=== PATIENT | female | born 1970 | race African-American/Black ===

== ENCOUNTER 2017-02-20 10:17 | Emergency (ER) | payer OTHER ==
[2017-02-20 10:26] VITALS: BMI 33.0
--- NOTE | 2017-02-20 11:08 | PDOC ---
History of Present Illness <Melissa Abbott - Last Filed: 02/20/17 16:57> - General History Source: Patient Exam Limitations: No Limitations - History of Present Illness Initial Comments: The patient is a 46 year old female, with a significant past medical history of DM, HTN, Anemia, Uterine fibroids who presents to the emergency department with L arm pain for the past 3 days. Patient reports pain is intermittent, crampy in nature, 10/10 in severity radiating from L shoulder to her fingertips. Patient states arm pain is associated with coldness to her fingertips. Patient took Aleve for the pain with minimal relief and presents to the ED for further evaluation. Patient denies any prior episodes. Patient denies any trauma , injury or heavy lifting. Patient denies SOB, chest pain or neck pain, headache or dizziness. Patient denies fever, chills, abdominal pain, nausea, vomit, diarrhea or constipation. Patient denies dysuria, frequency, urgency or hematuria. Patient denies sick contacts or recent travel. Allergies: codeine Past surgical history: Cholecystectomy, Bilateral toes amputation Social history: Former smoker PCP: at [facility] <Toney Coello - Last Filed: 02/20/17 17:59> - General Chief Complaint: Pain Stated Complaint: PCP SENT/LT ARM PAIN Time Seen by Provider: 02/20/17 11:00 Past History <Melissa Abbott - Last Filed: 02/20/17 16:57> - Past Medical History Anemia: Yes COPD: No CHF: Yes Diabetes: Yes (type 1) HTN: Yes Hypercholesterolemia: Yes - Surgical History Cholecystectomy: Yes - Immunization History Immunization Up to Date: Yes - Suicide/Smoking/Psychosocial Hx Smoking History: Former smoker Have you smoked in the past 12 months: No Number of Cigarettes Smoked Daily: 10 If you are a former smoker, when did you quit?: 4 YRS Information on smoking cessation initiated: No Hx Alcohol Use: No Drug/Substance Use Hx: No Substance Use Type: None Hx Substance Use Treatment: No <Toney Coello - Last Filed: 02/20/17 17:59> - Past Medical History Allergies/Adverse Reactions: Allergies Allergy/AdvReac Type Severity Reaction Status Date / Time codeine Allergy Intermediate Nausea Verified 02/20/17 10:18 Home Medications: Ambulatory Orders Insulin Sliding Scale [Novolog Vial Sliding Scale -] 0 units SQ TIDAC 04/16/15 Lisinopril [Zestril] 20 mg PO BID 06/11/14 Amlodipine Besylate [Norvasc -] 10 mg PO DAILY #30 tablet 06/19/14 Hydrochlorothiazide [Hctz -] 25 mg PO BID 08/27/15 Insulin Detemir [Levemir Flextouch] 60 unit SQ BID 08/27/15 Oxycodone HCl/Acetaminophen [Percocet 5-325 mg Tablet -] 1 combo PO Q6H PRN #14 tablet MDD 4 02/20/17 Review of Systems - Review of Systems Able to Perform ROS?: Yes Comments:: 02/20/17 17:04 CONSTITUTIONAL: No reported: Fever, Chills, Diaphoresis, Generalized Weakness, Malaise, Loss of Appetite HEENT: No reported: Rhinorrhea, Nasal Congestion, Throat Pain, Throat Swelling, Difficulty Swallowing, Mouth Swelling, Ear Pain, Eye Pain, Visual Changes CARDIOVASCULAR: No reported: Chest Pain, Syncope, Palpitations, Irregular Heart Rate, Lightheadedness, Peripheral Edema RESPIRATORY: No reported: Cough, Shortness of Breath, SOB with Exertion, Orthopnea, Wheezing , Stridor, Hemoptysis GASTROINTESTINAL: No reported: Abdominal pain, Abdominal Distension, Nausea, Vomiting, Diarrhea, Constipation, Melena, Hematochezia GENITOURINARY: No reported: Dysuria, Frequency, Urgency, Hesitancy, Flank Pain, Genital Pain MUSCULOSKELETAL: +L arm pain. No reported: Myalgia, Arthralgia, Joint Swelling, Back pain, Neck Pain SKIN: No reported: Rash, Itching, Pallor HEMATOLOGIC/IMMUNOLOGIC: No reported: Easy Bleeding, Easy Bruising, Lymphadenopathy, Frequent infections ENDOCRINE: No reported: Unexplained Weight Gain, Unexplained Weight Loss, Heat Intolerance , Cold Intolerance NEUROLOGIC: No reported: Headache, Focal Weakness, Paresthesias, Vertigo, Lightheadedness, Unsteady Gait, Seizure, Mental Status Changes, Incontinence PSYCHIATRIC: No reported: Anxiety, Depression <Mode,Toney - Last Filed: 02/20/17 17:59> *Physical Exam - Vital Signs Last Vital Signs Temp Pulse Resp BP Pulse Ox 98.1 F 84 18 155/81 98 02/20/17 13:32 02/20/17 13:32 02/20/17 13:32 02/20/17 13:32 02/20/17 13:32 <Melissa Abbott - Last Filed: 02/20/17 16:57> - Vital Signs Last Vital Signs Temp Pulse Resp BP Pulse Ox 98.8 F 92 H 18 165/91 100 02/20/17 10:21 02/20/17 10:21 02/20/17 10:21 02/20/17 10:21 02/20/17 10:21 - Physical Exam Comments: 02/20/17 17:04 GENERAL: The patient is awake, alert, and fully oriented, Nontoxic - in no acute distress. HEAD: Normocephalic, atraumatic. EYES: extraocular movements intact, sclera anicteric, conjunctiva clear. ENT: Normal voice, Moist mucous membranes. NECK: Normal range of motion, No JVD LUNGS: Breath sounds equal, clear to auscultation bilaterally. No wheezes, no rhonchi, no rales. HEART: Regular rate and rhythm, normal S1 and S2 without murmur, rub or gallop. ABDOMEN: Soft, nontender, normoactive bowel sounds. No guarding, no rebound. No masses. No CVA tenderness EXTREMITIES: +Tenderness to mid forearm with no erythema or edema. Normal range of motion, no edema. No clubbing or cyanosis. No cords, erythema, or tenderness.. +Slighter cooler arm L greater than R arm. pulses symmetric b/l NEUROLOGICAL: No facial asymmetry, Normal speech, normal gait. PSYCH: Normal mood, normal affect. SKIN: Warm, Dry, normal turgor. <Toney Coello - Last Filed: 02/20/17 17:59> Heart Score/ECG Review - ECG Impressions Comment:: 02/20/17 17:05 Twelve-lead EKG was performed and reviewed by me. There is normal sinus rhythm with a normal rate. rate of 92 q waves in septal leads <Toney Coello - Last Filed: 02/20/17 17:59> ED Treatment Course - LABORATORY CBC & Chemistry Diagram: 02/20/17 11:54 02/20/17 11:54 - ADDITIONAL ORDERS Additional order review: Laboratory Results 02/20/17 11:54 Sodium 133 L Potassium 4.6 Chloride 104 Carbon Dioxide 21 D Anion Gap 8 BUN 32 H D Creatinine 2.2 H D Creat Clearance w eGFR 24.03 Random Glucose 367 H* D Calcium 7.9 L Total Bilirubin 0.3 D AST 14 L D ALT 20 D Alkaline Phosphatase 129 H D Creatine Kinase 175 Creatine Kinase Index 2.8 CK-MB (CK-2) 5.017 H Troponin I 0.03 Total Protein 6.6 Albumin 2.5 L 02/20/17 11:54 RBC 4.23 MCV 64.0 L MCHC 28.5 L RDW 25.1 H MPV 8.4 D Neutrophils % No Result Required. Lymphocytes % No Result Required. - Medications Given in the ED: ED Medications Discontinued Medications Generic Name Dose Route Start Last Admin Trade Name Freq PRN Reason Stop Dose Admin Oxycodone/Acetaminophen 2 combo 02/20/17 11:43 02/20/17 11:49 Percocet 5/325 - PO 02/20/17 11:44 2 combo ONCE ONE Administration <Melissa Abbott - Last Filed: 02/20/17 16:57> - LABORATORY CBC & Chemistry Diagram: 02/20/17 11:54 02/20/17 11:54 <Toney Coello - Last Filed: 02/20/17 17:59> Medical Decision Making - Medical Decision Making 02/20/17 15:15 Mandi paged via office number. Awaiting call back. 02/20/17 15:37 Vascular dirt contractor paged-- Bhumi/Dina/Minor Arroyo to call back. 02/20/17 15:56 Dr. Arroyo returned the page and the patient;s case was discussed. 02/20/17 16:57 Ge paged via phone answering service. Awaiting call back. <Melissa Abbott - Last Filed: 02/20/17 16:57> - Medical Decision Making 02/20/17 11:32 46y F presenting with R forewarm pain and intermittent cramping and sensation of coolenss in her R hand. no injury, trauma, no sob, cp, neck pain or bcak pain. on exam RUE is slightly cooler than L. pulses symmetric, no edema?erythema. will ck basic labs to r/o metabolic dernagement US to confirm arterial flow 02/20/17 15:06 US noted for abnormal distal flow within radial and ulnar artieries. uncertain etiology. cta was recommended but the pts cr was elevated to 2.2. unclear etiology - will consult with vascular (dr. hawkins - woh she has seen in ). 02/20/17 15:[address] vascular dirt contractor as dr. schofield is on vacation. 02/20/17 15:59 dr. carolina was dustin freeman (surgical PA ) here evaluating epatient awaiting dr. carolina to call back for further direction 02/20/17 17:20 hanh carolina - ?vasculitis vs neuro vs vspasms as pt is feeling improved pulses are palapble no neuro complaints pulses symemtric warm bilaterally cap refill <2sec b/l will dc with outpatient fu tomorrow in the vascular lcinic pt agrees wit the plan and will return if symptpoms return o rare worse. I discussed the physical exam findings, ancillary test results and final diagnoses with the patient. I answered all of the patient's questions. The patient was satisfied with the care received and felt comfortable with the discharge plan and treatment plan. The patient will call their primary care physician within 24 hours to arrange follow-up and will return to the Emergency Department with any new, persistent or worsening symptoms. 02/20/17 17:58 <Toney Coello - Last Filed: 02/20/17 17:59> *DC/Admit/Observation/Transfer <Melissa Abbott - Last Filed: 02/20/17 16:57> - Discharge Dispostion Admit: No <Toney Coello - Last Filed: 02/20/17 17:59> Diagnosis at time of Disposition: Arm pain, left - Discharge Dispostion Disposition: HOME Condition at time of disposition: Improved - Prescriptions Prescriptions: Oxycodone HCl/Acetaminophen [Percocet 5-325 mg Tablet -] 1 combo PO Q6H PRN #14 tablet MDD 4 PRN Reason: Pain - Referrals Referrals: Eric Carolina MD [Staff Physician] - - Patient Instructions Printed Discharge Instructions: DI for Arm Pain Additional Instructions: Please see dr. Carolina in the vascular clinic at 11:30 tomorrow on . Your US revealed slightly decreased flow in your arteries in your arm - the cause is unclear at this time, but as your are feeling better please see dr. ge chowdary. Return to the emergency department immediately with ANY new, persistent or worsening symptoms including any numbness/tingling, persistent pain, or other concerns. You MUST call and follow up with your doctor tomorrow for further evaluation of your symptoms. Results were discussed with you. Please make sure your doctor reviews the results of your emergency evaluation. Print Language: MALAY
[2017-02-20 12:18] LABS: BASO # 0.1 # (0.1-1); EOS # 0.3 # (0-4.5); LYMPH # 4.3 (8-40); MCHC 28.5 g/dl (32.0-36.0); MEAN PLT VOLUME 8.4 fl (7.5-11.1); MONO # 0.4 # (3.8-10.2); PLATELET COUNT 610 K/MM3 (134-434); RDW 25.1 % (11.6-15.6); WHITE BLOOD COUNT 9.1 K/mm3 (4.0-10.0)
[2017-02-20 12:28] LABS: MCH 18.2 pg (25.7-33.7)
[2017-02-20 12:56] LABS: ALBUMIN 2.5 g/dl (3.4-5.0); ANION GAP 8 (8-16); BILIRUBIN,TOTAL 0.3 mg/dL (0.2-1.0); CALCIUM 7.9 mg/dL (8.5-10.1); CO2 21 mmol/L (21-32); CREATININE 2.2 mg/dL (0.55-1.02); SGOT/AST 14 U/L (15-37); SGPT/ALT 20 U/L (12-78); TOT PROT 6.6 g/dl (6.4-8.2)
[2017-02-20 12:59] LABS: ALK PHOS 129 U/L (45-117); CPK 175 IU/L (26-192); TROPONIN I 0.03 ng/ml (0.00-0.05)
[2017-02-20 13:10] LABS: GLUCOSE,RANDOM 367 mg/dL (74-106)
[2017-02-20 13:35] LABS: ANISOCYTOSIS 2+; HYPOCHROMIA 2+; METAMYELOCYTE 0 % (0-2); MICROCYTOSIS 3+; MYELOCYTE 0 % (0-2); PLATELET ESTIMATE INCREASED; POLYCHROMASIA 1+; REACTIVE LYMPHOCYTES 0 % (0-80); TARGET CELLS 2+
[2017-02-20 13:50] LABS: TOTAL CELLS COUNTED 100
--- NOTE | 2017-02-20 16:11 | CONSULT ---
- Consultation REQUESTING PROVIDER: Eric Willard covering for Daniel Raymond - Vascular Surgery CONSULT REQUEST: We have been asked to surgically evaluate this patient for cool left hand and abnormal finding on duplex HPI: Called to christian 46 yo female sent in by her PCP for further evaluation of her left hand coolness/pain (acute onset). States it started this past Sunday. Gets a "crampy" feeling in her fingers. Hands spasm. Pain reproducible with exertion. No pain while at rest. She is a former smoker (quit 4 years ago). Poorly controlled diabetes and renal insufficiency --> never seen by Endocrinology or Nephrology. Patient states her PCP manages both problems. While in ER patient had an arterial duplex study which identified abnormal flow through radial and ulnar arteries. No occlusion or hemodynamically significant stenosis. Denies trauma, pain with movement, rest pain, afib or palpitations. Smoking History: Former smoker (quit 4 years ago) Hx Alcohol Use: No Substance Use Type: None PMHx: Hypercholesterolemia, Obese, Renal insufficiency, Type 1 Diabetes, CHF, Anemia PSHx: Cholecystectomy Home Meds Insulin Sliding Scale [Novolog Vial Sliding Scale -] 0 units SQ TIDAC 06/11/14 Lisinopril [Zestril] 20 mg PO BID 06/11/14 Amlodipine Besylate [Norvasc -] 10 mg PO DAILY #30 tablet 06/19/14 Hydrochlorothiazide [Hctz -] 25 mg PO BID 08/27/15 Insulin Detemir [Levemir Flextouch] 60 unit SQ BID 08/27/15 Allergies: Codeine (nausea) ROS: Reviewed and considered negative except for what's contained in the HPI. PE: GENERAL: Awake, alert, and fully oriented, in no acute distress. HEAD: NC. AT EYES: PERRL, sclera anicteric, conjunctiva clear. NECK: Normal ROM, supple. No cervical tenderness. HEART: RRR MUSCULOSKELETAL: Normal ROM at all joints. No bony deformities or tenderness. UE: RUE unremarkable. LUE: palpable radial. warm, well-perfused. No cyanosis. Cap refill <2 seconds. No peripheral edema. PSYCH: Cooperative. Good eye contact. Appropriate mood and affect. SKIN: Warm, dry, normal turgor, no rashes or lesions noted Last Vital Signs Temp Pulse Resp BP Pulse Ox 98.1 F 84 18 155/81 98 12/26/17 13:32 02/20/17 13:32 02/20/17 13:32 02/20/17 13:32 02/20/17 13:32 CBC, BMP 02/20/17 11:54 02/20/17 11:54 Problem List - Problems (1) Type 1 diabetes Assessment/Plan: Poorly managed diabetes as evidenced by her 367 blood sugar Recommend she get a Endocrinology Consult A1C Warm compress to left hand every 20 mins for 1 hour then PRN Patient has palpable pulses and no occlusion/stenosis on art duplex. Because her Cr is elevated unable to do CTA. Conservative management Pain management Above discussed with Dr. Willard (covering for Mandi) and agrees. Code(s): E10.9 - TYPE 1 DIABETES MELLITUS WITHOUT COMPLICATIONS (2) Renal insufficiency Assessment/Plan: BUN/Cr 32/2.2 Recommend Nephrology Consult Code(s): N28.9 - DISORDER OF KIDNEY AND URETER, UNSPECIFIED (3) Anemia Code(s): D64.9 - ANEMIA, UNSPECIFIED Qualifiers: Anemia type: unspecified anemia type Visit type - Case Type Case Type: ED Admission - Emergency Emergency Visit: Yes Care time: The patient presented to the Emergency Department on the above date and was hospitalized for further evaluation of their emergent condition. - New patient This patient is new to me today: Yes Date on this admission: 02/20/17
[2017-02-20 18:12] VITALS: BP 145/80; PULSE 81; TEMP 98
--- NOTE | 2017-02-21 13:25 | EKG ---
Test Reason : Blood Pressure : / mmHG Vent. Rate : 092 BPM Atrial Rate : 092 BPM P-R Int : 180 ms QRS Dur : 080 ms QT Int : 376 ms P-R-T Axes : 042 -15 032 degrees QTc Int : 464 ms NORMAL SINUS RHYTHM POSSIBLE LEFT ATRIAL ENLARGEMENT SEPTAL INFARCT (CITED ON OR BEFORE 23-JUL-2010) ABNORMAL ECG WHEN COMPARED WITH ECG OF 27-AUG-2015 13:50, NO SIGNIFICANT CHANGE WAS FOUND Confirmed by CARLOS ALBERTO LEE MD ([id number]) on 02/21/2017 1:25:21 PM Referred By: Confirmed By:CARLOS ALBERTO LEE MD
== END 2017-02-20 18:12 | disposition home or self-care (01) ==
LOC: JER 10:17
DX: M79.602 Pain in left arm (principal); I10 Essential (primary) hypertension; E10.9 Type 1 diabetes mellitus without complications; Z79.4 Long term (current) use of insulin; D50.9 Iron deficiency anemia, unspecified; D25.9 Leiomyoma of uterus, unspecified; E78.00 Pure hypercholesterolemia, unspecified
CPT/HCPCS: 36415; 80053; 82550; 82553; 84484; 85025; 93005; 93010; 93931; 99283-25

== ENCOUNTER 2017-11-01 00:46 | Inpatient (IN) | payer OTHER ==
--- NOTE | 2017-11-01 01:05 | PDOC ---
Attending Attestation - HPI HPI: 11/01/17 01:08 The patient is a 47 year old female presenting with her partner, with a significant past medical history of DM, HTN, anemia (multiple transfusion in the past, starting in 2010), obesity, fibroids and bilateral ovarian cysts, who presents to the ED complaining of shortness of breath, palpitations, chest pain , lightheadedness, heavy vaginal bleeding and low blood count. She notes that she has been bleeding heavy for the past 3 weeks, with the past 3 days being the worse, bleeding through 4 overnight pads a day. She states that her menstrual periods are usually heavy but not this heavy. She was last seen in the ED 08/25/2017 and stayed overnight for a transfusion. She states that she has not followed up with a [facility] [employer] specialist for a long time. The patient denies headache, dizziness. Denies fever, chills, nausea, vomiting, diarrhea or constipation. Allergies: codeine Past surgical history: Cholecystectomy, Bilateral toes amputation Social history: Former smoker - Physicial Exam PE: 11/01/17 01:08 Constitutional: Awake, alert, oriented. No acute distress. Head: Normocephalic. Atraumatic Eyes: PERRL. EOMI. (+) Conjunctivae are pale. ENT: (+) Mucous membranes are dry. Posterior pharynx without exudates or erythema. Uvula midline. Neck: Supple. Full ROM. No lymphadenopathy. Cardiovascular: Regular rate. Regular rhythm. S1, S2 regular. Distal pulses are 2+ and symmetric. Pulmonary/Chest: No evidence of respiratory distress. Clear to auscultation bilaterally No wheezing, rales or rhonchi. Abdominal: (+) Mild suprapubic tenderness. Soft and non-distended. No rebound, guarding or rigidity. No organomegaly. No palpable masses. Good bowel sounds. Back: No CVA tenderness. Musculoskeletal: No edema. No cyanosis. No clubbing. Full range of motion in all extremities. Nocalf tenderness. Radial/pedal pulses are intact and 2+ bilaterally Skin: Skin is warm and dry. No petechiae. No purpura. Neurological: Alert and oriented to person, place, and time. Cranial nerves II -XII are grossly intact. Normal speech. Strength is grossly symmetric. No sensory deficits. Psychiatric: Good eye contact. Normal interaction, affect and behavior. <Rashaad Alvarado - Last Filed: 11/01/17 01:39> - Resident Resident Name: Kati Campbell - ED Attending Attestation I have performed the following: I have examined & evaluated the patient, The case was reviewed & discussed with the resident, I agree w/resident's findings & plan, Exceptions are as noted - Medical Decision Making 11/01/17 01:05 I, Dr. Mary Marcus, DO, attest that this document has been prepared under my direction and personally reviewed by me in its entirety. I further attest, that it accurately reflects all work, treatment, procedures and medical decision -making performed by me. 11/01/17 01:49 a/p: 47yo female with 3 weeks of vaginal bleeding, worse over the last 3 days -bleeding through 4 overnight pads in 1 hour, passing large clots -outpt hgb was 4 -sent by PMD for transfusion -pale conjunctiva, sob when ambulating, lightheaded -signs/symptoms of anemia -will obtain pelvic ultrasound , hx of fibroids and ovarian cysts -will send labs, type and screen -will most likely need to stay in the hospital for a blood transfusion and hiv nurse evaluation <Mary Marcus - Last Filed: 11/01/17 01:52>
[2017-11-01 01:24] VITALS: BMI 36.9
[2017-11-01] MEDS ORDERED: SODIUM CHLORIDE 1,000 ML IV STA (01:26)
--- NOTE | 2017-11-01 02:00 | PDOC ---
History of Present Illness - General Chief Complaint: Shortness of Breath Stated Complaint: SOB/WEAKNESS Time Seen by Provider: 11/01/17 00:57 History Source: Patient Exam Limitations: No Limitations - History of Present Illness Initial Comments: 11/01/17 01:55 Pt is a 47yo f with PMH of uterine fibriods, anemia, DM, HTN, HLD, CHF presenting to ED because her hemoglobin was found to be 4.6 at PCP office. Pt said she has been having "very heavy periods" for 3 weeks. She was here in July for similar complaints and stayed overnight for transfusion. She has not seen an Biology Internship yet. Pt was prescribed Progestin from PCP but has not been able to scrap picker the medication. She uses 4 overnight pads/hour. She admits to shortness of breath, lightheadedness, cramps and cough. Denies chest pain, abdominal pain , n/v/d, headache, urinary symptoms, numbness/tingling. She has a referral to a medical imaging technician from her PCP. Pt states she took her insulin this morning, has not taken evening dose. PCP: Surinder PMH: see hpi PSH: c/section, toe amputation 2010 Meds: novolog, levemir, FeSO4, amlodipine Allergies: codeine Social: denies Past History - Past Medical History Allergies/Adverse Reactions: Allergies Allergy/AdvReac Type Severity Reaction Status Date / Time codeine Allergy Intermediate Nausea Verified 11/01/17 01:24 Home Medications: Ambulatory Orders Insulin Sliding Scale [Novolog Vial Sliding Scale -] 10 units SQ BIDAC 06/11/14 Lisinopril [Zestril] 20 mg PO BID 06/11/14 Amlodipine Besylate [Norvasc -] 10 mg PO DAILY #30 tablet 06/19/14 Hydrochlorothiazide [Hctz -] 25 mg PO BID 08/27/15 Docusate Sodium [Colace] 100 mg PO BID PRN #28 capsule 08/26/17 Ferrous Sulfate 325 mg PO DAILY #30 tablet 08/26/17 Amlodipine Besylate [Norvasc -] 10 mg PO DAILY 11/01/17 Atorvastatin Ca [Lipitor] 40 mg PO HS 11/01/17 Cholecalciferol (Vitamin D3) [Dialyvite Vitamin D3 Max] 50,000 unit PO WEEKLY Insulin Detemir [Levemir Flextouch] 52 unit SQ BID 11/01/17 Lisinopril [Zestril] 40 mg PO DAILY 11/01/17 Anemia: Yes (with transfussion) COPD: No CHF: Yes Diabetes: Yes (type 1) HTN: Yes Hypercholesterolemia: Yes - Surgical History Cholecystectomy: Yes - Immunization History Immunization Up to Date: Yes - Suicide/Smoking/Psychosocial Hx Smoking History: Never smoked Have you smoked in the past 12 months: No Number of Cigarettes Smoked Daily: 10 If you are a former smoker, when did you quit?: 4 YRS Information on smoking cessation initiated: No Hx Alcohol Use: No Drug/Substance Use Hx: No Substance Use Type: None Hx Substance Use Treatment: No Review of Systems - Review of Systems Constitutional: Yes: See HPI, Chills, Weakness. No: Fever HEENTM: No: Recent change in vision, Tinnitus, Throat Pain Respiratory: Yes: Cough, Shortness of Breath, SOB with Exertion. No: Hemoptysis Cardiac (ROS): Yes: Lightheadedness, Palpitations. No: Chest Pain, Edema, Syncope ABD/GI: Yes: Abdominal cramping. No: Constipated, Diarrhea, Nausea, Vomiting : No: Burning, Dysuria, Frequency Integumentary: Yes: Pallor. No: Dryness, Erythema Neurological: No: Headache, Numbness, Tingling Hematologic/Lymphatic: Yes: Anemia *Physical Exam - Vital Signs Last Vital Signs Temp Pulse Resp BP Pulse Ox 98.7 F 90 18 134/58 100 11/01/17 01:11 11/01/17 01:11 11/01/17 01:11 11/01/17 01:11/01/17 01:11 - Physical Exam General Appearance: Yes: Appropriately Dressed, Mild Distress, Obese HEENT: positive: EOMI, YELENA, Pharynx Normal, Pale Conjunctivae, Other (pale oral mucosa). negative: Scleral Icterus (R), Scleral Icterus (L), Pharyngeal Erythema Neck: positive: Trachea midline, Supple. negative: Lymphadenopathy (R), Lymphadenopathy (L) Respiratory/Chest: positive: Lungs Clear, Normal Breath Sounds. negative: Crackles, Rales, Rhonchi, Stridor, Wheezing Cardiovascular: positive: Regular Rhythm, Regular Rate, S1, S2. negative: JVD, Murmur, Tachycardia Vascular Pulses: Carotid (R): 2+, Carotid (L): 2+, Dorsalis-Pedis (R): 2+, Doralis-Pedis (L): 2+ Female Pelvic Exam: positive: normal external exam, cervical os closed, vaginal bleeding, other (no adnexal tenderness or masses palpated.). negative: discharge, adnexal tenderness Gastrointestinal/Abdominal: positive: Normal Bowel Sounds, Soft. negative: Distended, Guarding, Rebound, Tenderness Musculoskeletal: negative: CVA Tenderness Integumentary: positive: Normal Color, Dry, Warm, Pale, Other (Feet are dry and warm. Healing stubs). negative: Cold, Clammy Neurologic: positive: plate cleaner II-XII NML intact, Fully Oriented, Alert, Normal Mood/ Affect, Normal Response, Motor Strength 06/30 ED Treatment Course - LABORATORY CBC & Chemistry Diagram: 11/01/17 03:19 11/01/17 03:19 - RADIOLOGY Radiology Studies Ordered: Category Date Time Status CHEST X-RAY PORTABLE* [RAD] Stat Radiology 11/01/17 01:24 Ordered Medical Decision Making - Medical Decision Making 11/01/17 03:05 Pt is a 47yo f with PMH of uterine fibriods, anemia, DM, HTN, HLD, CHF presenting to ED because her hemoglobin was found to be 4.6 at PCP office. Pt is afebrile, not tachycardic, normotensive. -Will order CBC to determine hgb level, t+s. will give ivf. and blood once hgb levels known. other causes of SOB: infectious, lung pathology, PE however low suspicion. most likely cause is anemia. TVUS: enlarged leiomyomatous uterus with 3.1cm submucosal fibroid in the anterior fundus 11/01/17 04:07 E[address] no ST elevations or depressions, no peaked T waves, no prolonged QT. CXR: Hgb: 5.4 will transfuse 2 units and get pt admitted. Will consult Biology Internship to see pt in the morning and discuss options with patient. Glucose elevated at 409. Cr 2.5 (2.3 in July) and all other electrolytes near baseline. No anion gap. Will give 6u levemir. 11/01/17 04:56 Per tech, they did not see an order for xray. Re entered order. Still waiting for urine 11/01/17 05:40 CXR: view is not optimal. However no acute changes noted with prior xray of . 2nd Iv placed. 20G. *DC/Admit/Observation/Transfer Diagnosis at time of Disposition: Hyperglycemia, CKD (chronic kidney disease) Anemia Qualifiers: Anemia type: other cause Other causes of anemia: other cause, not classified Qualified Code(s): D64.89 - Other specified anemias Fibroid (bleeding) (uterine) Qualifiers: Uterine leiomyoma location: submucous Qualified Code(s): D25.0 - Submucous leiomyoma of uterus - Discharge Dispostion Condition at time of disposition: Good Decision to Admit order: Yes - Referrals - Patient Instructions - Post Discharge Activity
[2017-11-01 03:47] LABS: INR 0.96 (0.83-1.09); PROTHROMBIN TIME (PATIENT) 10.9 SEC (9.7-13.0)
[2017-11-01 03:50] LABS: BASO % 1.4 % (0-2.0); EOS % 2.4 % (0-4.5); MCHC 29.9 g/dl (32.0-36.0); MEAN CELL VOLUME 80.3 fl (80-96); MEAN PLT VOLUME 7.1 fl (7.5-11.1); NEUT % 78.2 % (42.8-82.8); PLATELET COUNT 574 K/MM3 (134-434); RBC 2.25 M/mm3 (3.60-5.2); RDW 19.9 % (11.6-15.6); WHITE BLOOD COUNT 13.9 K/mm3 (4.0-10.0)
[2017-11-01 03:55] LABS: HEMOGLOBIN 5.4 GM/dL (10.7-15.3)
[2017-11-01 03:56] LABS: HEMATOCRIT 18.1 % (32.4-45.2)
[2017-11-01 03:58] LABS: ALBUMIN 2.8 g/dl (3.4-5.0); ALK PHOS 98 U/L (45-117); ANION GAP 8 MMOL/L (8-16); BILIRUBIN,TOTAL 0.1 mg/dL (0.2-1.0); BLOOD UREA NITROGEN 26 mg/dL (7-18); CALCIUM 7.9 mg/dL (8.5-10.1); CHLORIDE 102 mmol/L (98-107); CO2 23 mmol/L (21-32); CREATININE 2.5 mg/dL (0.55-1.02); MAGNESIUM 1.9 mg/dL (1.8-2.4); POTASSIUM 4.5 mmol/L (3.5-5.1); SGOT/AST 23 U/L (15-37); SGPT/ALT 31 U/L (12-78); SODIUM 133 mmol/L (136-145); TOT PROT 6.4 g/dl (6.4-8.2)
[2017-11-01 04:26] LABS: GLUCOSE,RANDOM 409 mg/dL (74-106)
[2017-11-01] MEDS ORDERED: INSULIN (LEVEMIR) 100 UNITS/ML UNITS SQ ONE ×4 (04:31→11:15)
--- NOTE | 2017-11-01 05:41 | PN ---
Teaching Attending Note Name of Resident: Marla Hernandez ATTENDING PHYSICIAN STATEMENT I saw and evaluated the patient. Chart, data, imaging reviewed. I reviewed the resident's note and discussed the case with the resident. I agree with the resident's findings and plan as documented. SUBJECTIVE: 47yo woman with anemia, HTN, uncontrolled DM with CKD, PVD, presented to ER because PCP saw hgb of 4.6mg/dl and referred pt to hospital. Patient with very heavy menses, requiring use of many pads. Was seen last July for similar complaint, received blood transfusion. Never f/u with OBGYN. Now c/o shortness of breath with exertion, fatigue. Pt having uncontrolled glucose with a1c last year of 13. OBJECTIVE: Last Vital Signs Temp Pulse Resp BP Pulse Ox 98.7 F 90 18 134/58 100 11/01/17 01:11 11/01/17 01:11 11/01/17 01:11 11/01/17 01:11 11/01/17 01:11 General -nontoxic, nad, obese heent- at, nc neck -supple cv -s1+s2+rrr chest -cta b/l abdomen-obese, nt skin - no rash Abnormal Lab Results 11/01/17 11/01/17 11/01/17 03:19 03:19 03:19 WBC 13.9 H RBC 2.25 L Hgb 5.4 L* Hct 18.1 L D MCH 24.0 L MCHC 29.9 L RDW 19.9 H Plt Count 574 H D MPV 7.1 L Absolute Neuts (auto) 10.9 H Sodium 133 L BUN 26 H Creatinine 2.5 H Random Glucose 409 H* Calcium 7.9 L Total Bilirubin 0.1 L Albumin 2.8 L Crossmatch See Detail ekg reviewed -poor r wave progression, precordial q waves seen transvaginal u/s reviewed. ASSESSMENT AND PLAN: 47yo woman with severe symptomatic anemia from bleeding 2/2 leiomyoma -observation -basic anemia studies- ferritin, iron levels, vit b12, retic count -transfuse 2 units PRBC and recheck cbc - goal hgb - >7mg/dl -obgyn eval in hospital - patient was noncompliant with outpatient f/u previously -bhcg -avoid heparin or antiplatelet agents #Hyperglycemia- normal anion gap -send for ketones in urine and serum -insulin aspart 12 units stat -s/p 1L IV fluid -send a1c level -will need podiatry and ophtho care as an outpatient #Leukocytosis- no signs of infection, might be reactive -CXR to check for infiltrates -UA -hold off abx for now #CKD - does not follow with renal as an outpatient -renal consult for renal medication optimization -restrict IVF -renal U/S -avoid nephrotoxic meds SCDs for dvt ppx
[2017-11-01] MEDS ORDERED: INSULIN (NOVOLOG) ASPART 100 UNITS/ML 10ML VIAL SQ ONE (06:00)
--- NOTE | 2017-11-01 06:14 | HP ---
CHIEF COMPLAINT: anemia PCP: Dr. Cadena HISTORY OF PRESENT ILLNESS: 47 y/o female with PMH DM,HTN, anemia, fibroids presents to the ED with heavy vaginal bleeding associated with SOB/weakness/palpitations. Patient states for the past three weeks her menstrual period has lasted and she has been heavily bleeding, using about 4 pads an hour and has been also passing clots. Patient was sent in from PCP kylee to have a Hgb of 4.6. Of note, patient was here 2 months ago with similar complaints where she received 1 unit of blood. She does not follow up with a crop roller regularly. She endorses dyspnea and lightheadedness. ER course was notable for: (1) Hgb 5.4 - receiving 2 units (2) glucose 409- (3)WBC 13.9- Recent Travel: none PAST MEDICAL HISTORY: see above PAST SURGICAL HISTORY: toe amputations; c section Social History: Smoking: former smoker; quit 15 years ago Alcohol: social drinker; drinks occasionally on weekends Drugs: denies Family History: maternal grandmother and aunt both have ovarian and breast cancer; DM and HTN on both sides Allergies codeine Allergy (Intermediate, Verified 11/01/17 01:24) Nausea bad stomach ache HOME MEDICATIONS: Home Medications Medication Instructions Recorded Insulin Sliding Scale [Novolog 10 units SQ BIDAC 06/11/14 Vial Sliding Scale -] Lisinopril [Zestril] 20 mg PO BID 06/11/14 Amlodipine Besylate [Norvasc -] 10 mg PO DAILY #30 tablet 06/19/14 Hydrochlorothiazide [Hctz -] 25 mg PO BID 08/27/15 Docusate Sodium [Colace] 100 mg PO BID PRN #28 capsule 08/26/17 Ferrous Sulfate 325 mg PO DAILY #30 tablet 08/26/17 Amlodipine Besylate [Norvasc -] 10 mg PO DAILY 11/01/17 Atorvastatin Ca [Lipitor] 40 mg PO HS 11/01/17 Cholecalciferol (Vitamin D3) 50,000 unit PO WEEKLY 11/01/17 [Dialyvite Vitamin D3 Max] Insulin Detemir [Levemir Flextouch] 52 unit SQ BID 11/01/17 Lisinopril [Zestril] 40 mg PO DAILY 11/01/17 REVIEW OF SYSTEMS CONSTITUTIONAL: Present:generalized weakness, Absent: fever, chills, diaphoresis, malaise, loss of appetite, weight change HEENT: Absent: rhinorrhea, nasal congestion, throat pain, throat swelling, difficulty swallowing, mouth swelling, ear pain, eye pain, visual changes CARDIOVASCULAR: Present:palpitations,lightheadedness Absent: chest pain, syncope, palpitations, irregular heart rate, peripheral edema RESPIRATORY: Absent: cough, shortness of breath, dyspnea with exertion, orthopnea, wheezing, stridor, hemoptysis GASTROINTESTINAL: Present: abdominal cramping Absent: abdominal distension, nausea, vomiting, diarrhea, constipation, melena, hematochezia GENITOURINARY: Absent: dysuria, frequency, urgency, hesitancy, hematuria, flank pain, genital pain MUSCULOSKELETAL: Absent: myalgia, arthralgia, joint swelling, back pain, neck pain SKIN: Absent: rash, itching, pallor HEMATOLOGIC/IMMUNOLOGIC: Absent: easy bleeding, easy bruising, lymphadenopathy, frequent infections ENDOCRINE: Absent: unexplained weight gain, unexplained weight loss, heat intolerance, cold intolerance NEUROLOGIC: Absent: headache, focal weakness or paresthesias, dizziness, unsteady gait, seizure, mental status changes, bladder or bowel incontinence PSYCHIATRIC: Absent: anxiety, depression, suicidal or homicidal ideation, hallucinations. PHYSICAL EXAMINATION Vital Signs - 24 hr 11/01/17 01:11 Temperature 98.7 F Pulse Rate 90 Respiratory 18 Rate Blood Pressure 134/58 O2 Sat by Pulse 100 Oximetry (%) GENERAL: Awake, alert, and fully oriented, in no acute distress. NECK: no JVD appreciated. LUNGS: CTA B/L; no rales, rhonchi, wheezing HEART: Regular rate and rhythm, normal S1 and S2 without murmur, rub or gallop. ABDOMEN: Soft, nontender, not distended, normoactive bowel sounds, no guarding, no rebound, no masses. No hepatomegaly or splenomegaly. MUSCULOSKELETAL: Normal range of motion at all joints. No bony deformities or tenderness. No CVA tenderness. EXTREMITIES: warm; well perfused; no clubbing/cyanosis/edema NEUROLOGICAL: Cranial nerves II-XII intact. Normal speech. Normal gait. PSYCHIATRIC: Cooperative. Good eye contact. Appropriate mood and affect. SKIN: Warm, dry, normal turgor, no rashes or lesions noted, normal capillary refill. Laboratory Results - last 24 hr 11/01/17 11/01/1718 03:19 03:19 03:19 WBC 13.9 H RBC 2.25 L Hgb 5.4 L* Hct 18.1 L D MCV 80.3 MCH 24.0 L MCHC 29.9 L RDW 19.9 H Plt Count 574 H D MPV 7.1 L Absolute Neuts (auto) 10.9 H Neutrophils % 78.2 D Lymphocytes % 14.0 D Monocytes % 4.0 Eosinophils % 2.4 Basophils % 1.4 Nucleated RBC % 0 PT with INR INR Sodium 133 L Potassium 4.5 Chloride 102 Carbon Dioxide 23 Anion Gap 8 BUN 26 H Creatinine 2.5 H Creat Clearance w eGFR 20.64 Random Glucose 409 H* Calcium 7.9 L Phosphorus Magnesium 1.9 Total Bilirubin 0.1 L AST 23 ALT 31 Alkaline Phosphatase 98 Troponin I < 0.02 Total Protein 6.4 Albumin 2.8 L Blood Type Antibody Screen Crossmatch 11/01/17 11/01/17 11/01/17 03:19 03:19 03:19 WBC RBC Hgb Hct MCV MCH MCHC RDW Plt Count MPV Absolute Neuts (auto) Neutrophils % Lymphocytes % Monocytes % Eosinophils % Basophils % Nucleated RBC % PT with INR 10.90 INR 0.96 Sodium Potassium Chloride Carbon Dioxide Anion Gap BUN Creatinine Creat Clearance w eGFR Random Glucose Calcium Phosphorus 4.4 Magnesium Total Bilirubin AST ALT Alkaline Phosphatase Troponin I Total Protein Albumin Blood Type O POSITIVE Antibody Screen Negative Crossmatch See Detail ASSESSMENT/PLAN: 47 y/o female with PMH of HTN, DM, anemia, HLD, presents to the ED with heavy vaginal bleeding for the past three weeks along with symptomatic anemia. # Vaginal Bleeding transvaginal U/S showed an enlarged leiomyomatous uterus with a 3.1 cm fibroid in anterior funduds -crop roller consulted -patient receiving 2 units of blood -repeat CBC -iron studies, retic, ferritin pending -monitor hemodynamics # Diabetes patients sugar was 409 on arrival -started ISS -restart patients home dose of levemir 52 BID -serum/urine acetones pending -lipid panel/ A1c ordered #CKD patients Cr increased from 2.3 to 2.5 since last admission -nephro consulted -did not restart patients home dose of lisinopril #HTN -restarted amlodipine 10 and HCTZ 25 BID -did not restart lisinopril given CKD #HLD -c/w lipitor 40 F/E/N: received 1 L bolus replete electrolytes when needed sodium restricted diet dispo: med-surg obvs Visit type - Emergency Visit Emergency Visit: Yes ED Registration Date: 11/01/17 Care time: The patient presented to the Emergency Department on the above date and was hospitalized for further evaluation of their emergent condition. - New Patient This patient is new to me today: Yes Date on this admission: 11/01/17 - Critical Care Critical Care patient: No Hospitalist Screening - Colonoscopy Questionnaire Colonoscopy Questionnaire: Colonoscopy Questionnaire - Patient: 50 - 75 years old and never had a screening colonoscopy: Unknown History of colon or rectal polyps, or CA: Unknown History of IBD, Crohn's disease or UC: Unknown History of abdominal radiation therapy as a child: Unknown - Relative: 1 with colon or rectal CA, or polyps at age 60 or younger: Unknown Colon or rectal CA diagnosed at age 45 or younger: Unknown Multiple relatives with colon or rectal CA: Unknown - Outcome: Screening Result: Negative Screen
[2017-11-01] MEDS ORDERED: ACETAMINOPHEN 1000 MG/100 ML VIAL (NON FORMULARY) IVPB ONE ×2 (07:04→18:46)
[2017-11-01] MEDS ORDERED: INSULIN (NOVOLOG) ASPART 100 UNITS/ML 10ML VIAL ONE (07:30)
[2017-11-01] MEDS ORDERED: ACETAMINOPHEN INJECTION 100 ML IVPB ONE (07:30)
[2017-11-01 07:32] LABS: ANISOCYTOSIS 1+
[2017-11-01] MEDS: INSULIN SLIDING SCALE (NOVOLOG) 1 VIAL SQ SCH ×5 (07:50→21:34)
[2017-11-01 08:28] LABS: CHOLESTEROL 157 mg/dL (50-200); TRIGLYCERIDES 100 mg/dL (35-160)
[2017-11-01 08:30] LABS: HDL CHOLESTEROL 53 mg/dL (40-60)
[2017-11-01] MEDS: amLODIPine BESYLATE 10 MG TABLET (FP) PO SCH (09:12)
[2017-11-01] MEDS ORDERED: HYDROCHLOROTHIAZIDE 25 MG TABLET (FP) PO SCH (10:00)
--- NOTE | 2017-11-01 13:16 | PN ---
Teaching Attending Note Name of Resident: Sherron Shirley ATTENDING PHYSICIAN STATEMENT I saw and evaluated the patient. I reviewed the resident's note and discussed the case with the resident. I agree with the resident's findings and plan as documented. SUBJECTIVE:states he feels much better since receiving the 1 unit of blood. however she has developed significant vaginal bleeding. has used 3 pads in the past 2 hours. states her sugars are not well controlled at home. usually mid 200 's. contributed a lot of it to her diet as she is not compliant. denies CP, SOB , fever, chills, N/V/C/D, melena or BRBPR OBJECTIVE: Last Vital Signs Temp Pulse Resp BP Pulse Ox 98.5 F 89 19 139/64 100 11/01/17 09:05 11/01/17 09:05 11/01/17 09:05 11/01/17 09:05 11/01/17 07:00 General NAD Abdomen soft NT/ND obese ASSESSMENT AND PLAN: 47yo F with PMH anemia, HTN, DM and CKD sent to the ER for Hgb 4.6 in the office and found to have dyspnea 1. symptomatic anemia- from metomenorrhagia from fibroids. s/p 1 unit PRBC this far. awaiting 2nd unit. will likely benefit from DIANNA (pt is agreeable as does not desire more children). will repeat CBC after unit. 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 Hyperglycemia- sugars uncontrolled on arrival but states she did not take her sliding scale with lunch yesterday. will re-start levemir and iSS. dietary eval for counselling on modifications. 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 acute on CKD- likely due to anemia. baseline Cr 2.3. explained need for tighter glycemic control to prevent worsening renal function. nephro consulted 4. Leukocytosis- liekly reactive. no sings of infection. hold abx 5. Obseity- BMI 37. lifestyle modifications iwth dietary and excercise. 6. DVT ppx- EAM
--- NOTE | 2017-11-01 15:56 | EKG ---
Test Reason : Blood Pressure : / mmHG Vent. 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
--- NOTE | 2017-11-01 15:59 | CONSULT ---
Consult Consult Specialty:: Nephrology Reason for Consultation:: CKD - History of Present Illness Chief Complaint: shortness of breath and heavy menstrual bleeding History of Present Illness: Pt is a 47 year old female with pmhx of CKD, DM, HTN, obesity, anemia, ovarian cysts and fibroids who presents to the ER with palpitations, SOB, and heavy vaginal bleeding. She was noted to be anemic and admitted for prbc transfusion. I was called to evaluate her for CKD as she was found to have elevated creatinine. She says that she does have CKD and was recently told that she should see a linen room custodian. She says her creatinine value was in the 2's but does not remember exactly. She has history of DM for about 20 years. She does have diabetic retinopathy. She denies dysuria or hematuria. She denies nsaid use. - History Source History Provided By: Patient, Medical Record - Past Medical History Cardio/Vascular: Yes: CHF, HTN Hepatobiliary: Yes: Cholecystitis Renal/: Yes: Renal Inusuff ...LMP: 08/10/17 Heme/Onc: Yes: Anemia Endocrine: Yes: Diabetes Mellitus Additional Medical History: diabetic retinopathy - Past Surgical History Past Surgical History: Yes: Amputation (B/L TOE #5), Cholecystectomy - Alcohol/Substance Use Hx Alcohol Use: No - Smoking History Smoking history: Former smoker Have you smoked in the past 12 months: No Aproximately how many cigarettes per day: 10 If you are a former smoker, when did you quit?: 4 YRS Home Medications - Allergies Allergies/Adverse Reactions: Allergies Allergy/AdvReac Type Severity Reaction Status Date / Time codeine Allergy Intermediate Nausea Verified 11/01/17 01:24 - Home Medications Home Medications: Ambulatory Orders Insulin Sliding Scale [Novolog Vial Sliding Scale -] 10 units SQ BIDAC 06/11/14 Lisinopril [Zestril] 20 mg PO BID 06/11/14 Amlodipine Besylate [Norvasc -] 10 mg PO DAILY #30 tablet 06/19/14 Hydrochlorothiazide [Hctz -] 25 mg PO BID 08/27/15 Docusate Sodium [Colace] 100 mg PO BID PRN #28 capsule 08/26/17 Ferrous Sulfate 325 mg PO DAILY #30 tablet 08/26/17 Amlodipine Besylate [Norvasc -] 10 mg PO DAILY 11/01/17 Atorvastatin Ca [Lipitor] 40 mg PO HS 11/01/17 Cholecalciferol (Vitamin D3) [Dialyvite Vitamin D3 Max] 50,000 unit PO WEEKLY Insulin Detemir [Levemir Flextouch] 52 unit SQ BID 11/01/17 Lisinopril [Zestril] 40 mg PO DAILY 11/01/17 Family Disease History - Family Disease History Family Disease History: Diabetes: Mother Review of Systems - Review of Systems Constitutional: reports: Malaise Eyes: reports: No Symptoms HENT: reports: No Symptoms Neck: reports: No Symptoms Cardiovascular: reports: Chest Pain, Shortness of Breath Respiratory: reports: SOB, SOB on Exertion Gastrointestinal: reports: No Symptoms Genitourinary: reports: Vaginal Bleeding Musculoskeletal: reports: No Symptoms Integumentary: reports: No Symptoms Neurological: reports: No Symptoms Endocrine: reports: No Symptoms Hematology/Lymphatic: reports: No Symptoms Psychiatric: reports: No Symptoms Physical Exam Vital Signs: Vital Signs Temperature 98.5 F 11/01/17 09:05 Pulse Rate 89 11/01/17 09:05 Respiratory Rate 19 11/01/17 09:05 Blood Pressure 139/64 11/01/17 09:05 O2 Sat by Pulse Oximetry (%) 100 11/01/17 07:00 Constitutional: Yes: Calm Eyes: Yes: Conjunctiva Clear HENT: Yes: Atraumatic Neck: Yes: Supple Cardiovascular: Yes: S1, S2 Respiratory: Yes: CTA Bilaterally Gastrointestinal: Yes: Normal Bowel Sounds, Soft Renal/: Yes: WNL Musculoskeletal: Yes: WNL Edema: No Integumentary: Yes: WNL Neurological: Yes: Oriented Psychiatric: Yes: Oriented Labs: CBC, BMP 11/01/17 03:19 11/01/17 03:19 Laboratory Tests 08/29/15 08/31/15 02/20/17 08:00 07:45 11:54 WBC RBC Hgb Plt Count Sodium BUN Creatinine 1.8 H 1.4 H D 2.2 H D Random Glucose Urine HCG, Qual Acetone, Qual 08/25/17 08/26/17 11/01/17 16:44 07:21 03:19 WBC 13.9 H RBC 2.25 L Hgb 5.4 L* Plt Count 574 H D Sodium BUN Creatinine 2.3 H 2.3 H Random Glucose Urine HCG, Qual Acetone, Qual 11/01/17 11/01/17 11/01/17 03:19 06:36 07:10 WBC RBC Hgb Plt Count Sodium 133 L BUN 26 H Creatinine 2.5 H Random Glucose 409 H* Urine HCG, Qual Negative Acetone, Qual Negative L Imaging - Results Chest X-ray: Report Reviewed Problem List - Problems (1) CKD (chronic kidney disease) Code(s): N18.9 - CHRONIC KIDNEY DISEASE, UNSPECIFIED (2) Anemia Code(s): D64.9 - ANEMIA, UNSPECIFIED Qualifiers: Anemia type: other cause Other causes of anemia: other cause, not classified Qualified Code(s): D64.89 - Other specified anemias (3) Fibroid (bleeding) (uterine) Code(s): D25.9 - LEIOMYOMA OF UTERUS, UNSPECIFIED Qualifiers: Uterine leiomyoma location: submucous Qualified Code(s): D25.0 - Submucous leiomyoma of uterus (4) Diabetic foot infection Code(s): E11.69 - TYPE 2 DIABETES MELLITUS WITH OTHER SPECIFIED COMPLICATION; L08.9 - LOCAL INFECTION OF THE SKIN AND SUBCUTANEOUS TISSUE, UNSP (5) Type 1 diabetes Code(s): E10.9 - TYPE 1 DIABETES MELLITUS WITHOUT COMPLICATIONS Assessment/Plan Current Medications Generic Name Dose Route Start Last Admin Trade Name Freq PRN Reason Stop Dose Admin Amlodipine Besylate 10 mg 11/01/17 10:00 11/01/17 09:12 Norvasc - PO 10 mg DAILY MELINDA Administration Atorvastatin Calcium 40 mg 11/01/17 22:00 Lipitor - PO HS [facility] Insulin Aspart 1 vial 11/01/17 07:00 11/01/17 11:42 Novolog Vial Sliding Scale - SQ 6 units ACHS MELINDA Administration Protocol Insulin Detemir 50 units 11/01/17 22:00 Levemir Vial SQ BID@0700,2200 [facility] Impression 1. CKD 2. anemia 3. DM 4. HTN 5. obesity 6. fibroids 7. ovarian cysts 8. 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
--- NOTE | 2017-11-01 16:27 | PN ---
Physical Exam: SUBJECTIVE: Patient seen and examined at bedside this morning. She reports improvement of weakness, palpitations and SOB. She is able to ambulate to the bathroom without feeling weak or out of breath. OBJECTIVE: Vital Signs Period Temp Pulse Resp BP Sys/Cooper Pulse Ox Last 24 Hr 98.1 F-98.7 F 87-91 17-19 122-139/58-73 97-100 GENERAL: The patient is awake, alert, and fully oriented, in no acute distress. HEAD: Normal with no signs of trauma. EYES: PERRLA, EOMI, sclera anicteric, conjunctiva clear. ENT: Ears normal, nares patent, oropharynx clear without exudates, +pale lips, + dry mucosa NECK: Trachea midline, full range of motion, supple. LUNGS: Breath sounds equal, clear to auscultation bilaterally. HEART: Regular rate and rhythm, S1, S2 without murmur, rub or gallop. ABDOMEN: Soft, nontender, nondistended, normoactive bowel sounds. EXTREMITIES: 2+ pulses, warm, well-perfused, no edema. NEUROLOGICAL: Cranial nerves II through XII grossly intact. Normal speech, normal gait. PSYCH: Normal mood, normal affect. SKIN: Warm, dry, normal turgor, no rashes or lesions noted Laboratory Results - last 24 hr 11/01/17 11/01/17 11/01/17 03:19 03:19 03:19 WBC 13.9 H RBC 2.25 L Hgb 5.4 L* Hct 18.1 L D MCV 80.3 MCH 24.0 L MCHC 29.9 L RDW 19.9 H Plt Count 574 H D MPV 7.1 L Absolute Neuts (auto) 10.9 H Neutrophils % 78.2 D Neutrophils % (Manual) 82.0 Band Neutrophils % 2.0 Lymphocytes % 14.0 D Lymphocytes % (Manual) 12.0 D Monocytes % 4.0 Monocytes % (Manual) 1 L Eosinophils % 2.4 Eosinophils % (Manual) 3.0 Basophils % 1.4 Nucleated RBC % 0 Anisocytosis 1+ Retic Count PT with INR INR Sodium 133 L Potassium 4.5 Chloride 102 Carbon Dioxide 23 Anion Gap 8 BUN 26 H Creatinine 2.5 H Creat Clearance w eGFR 20.64 POC Glucometer Random Glucose 409 H* Hemoglobin A1c % Calcium 7.9 L Phosphorus Magnesium 1.9 Ferritin Total Bilirubin 0.1 L AST 23 ALT 31 Alkaline Phosphatase 98 Troponin I < 0.02 Total Protein 6.4 Albumin 2.8 L Triglycerides Cholesterol Total LDL Cholesterol HDL Cholesterol Vitamin B12 Urine Acetone Urine HCG, Qual Acetone, Qual Blood Type Antibody Screen Crossmatch 11/01/17 11/01/17 11/01/17 03:19 03:19 03:19 WBC RBC Hgb Hct MCV MCH MCHC RDW Plt Count MPV Absolute Neuts (auto) Neutrophils % Neutrophils % (Manual) Band Neutrophils % Lymphocytes % Lymphocytes % (Manual) Monocytes % Monocytes % (Manual) Eosinophils % Eosinophils % (Manual) Basophils % Nucleated RBC % Anisocytosis Retic Count PT with INR 10.90 INR 0.96 Sodium Potassium Chloride Carbon Dioxide Anion Gap BUN Creatinine Creat Clearance w eGFR POC Glucometer Random Glucose Hemoglobin A1c % Calcium Phosphorus 4.4 Magnesium Ferritin Total Bilirubin AST ALT Alkaline Phosphatase Troponin I Total Protein Albumin Triglycerides Cholesterol Total LDL Cholesterol HDL Cholesterol Vitamin B12 Urine Acetone Urine HCG, Qual Acetone, Qual Blood Type O POSITIVE Antibody Screen Negative Crossmatch See Detail 11/01/17 11/01/17 11/01/17 06:36 06:36 06:36 WBC RBC Hgb Hct MCV MCH MCHC RDW Plt Count MPV Absolute Neuts (auto) Neutrophils % Neutrophils % (Manual) Band Neutrophils % Lymphocytes % Lymphocytes % (Manual) Monocytes % Monocytes % (Manual) Eosinophils % Eosinophils % (Manual) Basophils % Nucleated RBC % Anisocytosis Retic Count 6.31 H PT with INR INR Sodium Potassium Chloride Carbon Dioxide Anion Gap BUN Creatinine Creat Clearance w eGFR POC Glucometer Random Glucose Hemoglobin A1c % Calcium Phosphorus Magnesium Ferritin 28.5 Total Bilirubin AST ALT Alkaline Phosphatase Troponin I Total Protein Albumin Triglycerides Cholesterol Total LDL Cholesterol HDL Cholesterol Vitamin B12 1112 H Urine Acetone Cancelled Urine HCG, Qual Acetone, Qual Negative L Blood Type Antibody Screen Crossmatch 11/01/17 11/01/17 11/01/17 06:36 06:36 07:10 WBC RBC Hgb Hct MCV MCH MCHC RDW Plt Count MPV Absolute Neuts (auto) Neutrophils % Neutrophils % (Manual) Band Neutrophils % Lymphocytes % Lymphocytes % (Manual) Monocytes % Monocytes % (Manual) Eosinophils % Eosinophils % (Manual) Basophils % Nucleated RBC % Anisocytosis Retic Count PT with INR INR Sodium Potassium Chloride Carbon Dioxide Anion Gap BUN Creatinine Creat Clearance w eGFR POC Glucometer Random Glucose Hemoglobin A1c % 9.5 H Calcium Phosphorus Magnesium Ferritin Total Bilirubin AST ALT Alkaline Phosphatase Troponin I Total Protein Albumin Triglycerides 100 Cholesterol 157 Total LDL Cholesterol 89 HDL Cholesterol 53 Vitamin B12 Urine Acetone Urine HCG, Qual Negative Acetone, Qual Blood Type Antibody Screen Crossmatch 11/01/17 11/01/17 11/01/17 07:35 08:57 11:38 WBC RBC Hgb Hct MCV MCH MCHC RDW Plt Count MPV Absolute Neuts (auto) Neutrophils % Neutrophils % (Manual) Band Neutrophils % Lymphocytes % Lymphocytes % (Manual) Monocytes % Monocytes % (Manual) Eosinophils % Eosinophils % (Manual) Basophils % Nucleated RBC % Anisocytosis Retic Count PT with INR INR Sodium Potassium Chloride Carbon Dioxide Anion Gap BUN Creatinine Creat Clearance w eGFR POC Glucometer > 400 359 260 Random Glucose Hemoglobin A1c % Calcium Phosphorus Magnesium Ferritin Total Bilirubin AST ALT Alkaline Phosphatase Troponin I Total Protein Albumin Triglycerides Cholesterol Total LDL Cholesterol HDL Cholesterol Vitamin B12 Urine Acetone Urine HCG, Qual Acetone, Qual Blood Type Antibody Screen Crossmatch Active Medications Generic Name Dose Route Start Last Admin Trade Name Freq PRN Reason Stop Dose Admin Amlodipine Besylate 10 mg 11/01/17 10:00 11/01/17 09:12 Norvasc - PO 10 mg DAILY [facility] Administration Atorvastatin Calcium 40 mg 11/01/17 22:00 Lipitor - PO HS [facility] Insulin Aspart 1 vial 11/01/17 07:00 11/01/17 11:42 Novolog Vial Sliding Scale - SQ 6 units ACHS [facility] Administration Protocol Insulin Detemir 50 units 11/01/17 22:00 Levemir Vial SQ BID@0700,2200 [facility] Imaging CXR- In comparison to CXR in 08/25/17, slightly weaker inspiration with central crowding, linear atelectasis left midlung field and slightly more prominent heart. Angles are sharp. Bones and soft tissues are intact. TVS- Enlarged fibroid uterus, as described above. Poor visualization of the endometrial stripe that appears to be significantly thickened measuring 2.2 cm in AP dimension. Differential diagnosis includes endometrial hyperplasia, polyps and a neoplastic process. Further evaluation with MRI or follow-up ultrasound in first week of the next menstrual cycle is needed. ASSESSMENT/PLAN: 47 y/o female with PMH of HTN, DM, anemia, HLD, presents to the ED with heavy vaginal bleeding for the past three weeks along with symptomatic anemia. # Anemia secondary to heavy Vaginal Bleeding -TVS: Enlarged fibroid uterus, as described above. Poor visualization of the endometrial stripe that appears to be significantly thickened measuring 2.2 cm in AP dimension. Differential diagnosis includes endometrial hyperplasia, polyps and a neoplastic process. -[employer] [employer] Programs Director consulted. -s/p transfusion 2 units pRBC -repeat CBC after transfusion -iron studies pending -Retic ct - 6.31; Ferritin - 28.5 -B12 - 1112 -monitor hemodynamics # DM -patient's sugar was 409 on arrival -started ISS -restarted Levemir at 50 units BID -negative serum acetone -HbA1c - 9.5 -Chol - 157; TG - 100; LDL 89; HDL - 53 -Dietary evaluation requested. #CKD -patient's Cr increased from 2.3 to 2.5 since last admission -Lisinopril and HCTZ held. -Dr. Sanchez consulted. Recommendations appreciated. -Pt will need outpatient workup -Renal ultrasound pending -UA with Protein to Creatinine ratio ordered. -Dr. Greenwood d/w pt in detail senior care risks of uncontrolled sugars which can be prevented with sugar control and encouraged patient to speak with PMD about some of the newer agents. #HTN -restarted Amlodipine 10mg daily -held Lisinopril and HCTZ #HLD -c/w lipitor 40 #Leukocytosis -likely reactive -no signs or focus of infection -UA pending -will repeat CBC #F/E/N: -received 1 L bolus -electrolytes wnl, routine bmp monitoring -sodium restricted diet #PPx -patient is actively bleeding -early ambulation #Disposition -med-surg obs Visit type - Emergency Visit Emergency Visit: Yes ED Registration Date: 11/01/17 Care time: The patient presented to the Emergency Department on the above date and was hospitalized for further evaluation of their emergent condition. - New Patient This patient is new to me today: Yes Date on this admission: 11/01/17 - Critical Care Critical Care patient: No
[2017-11-01] MEDS ORDERED: ACETAMINOPHEN 325 MG TABLET (FP) PO ONE (17:42)
[2017-11-01 18:15] LABS: HEMATOCRIT 24.4 % (32.4-45.2); HEMOGLOBIN 7.8 GM/dL (10.7-15.3); MCH 26.5 pg (25.7-33.7); MCHC 31.8 g/dl (32.0-36.0); MEAN CELL VOLUME 83.3 fl (80-96); MEAN PLT VOLUME 7.3 fl (7.5-11.1); PLATELET COUNT 542 K/MM3 (134-434); RBC 2.93 M/mm3 (3.60-5.2); RDW 18.9 % (11.6-15.6); WHITE BLOOD COUNT 13.8 K/mm3 (4.0-10.0)
[2017-11-01 18:47] LABS: ANION GAP 12 MMOL/L (8-16); BLOOD UREA NITROGEN 23 mg/dL (7-18); CALCIUM 8.3 mg/dL (8.5-10.1); CHLORIDE 106 mmol/L (98-107); CO2 20 mmol/L (21-32); CREATININE 2.1 mg/dL (0.55-1.02); GLUCOSE,RANDOM 126 mg/dL (74-106); POTASSIUM 4.1 mmol/L (3.5-5.1); SODIUM 138 mmol/L (136-145)
[2017-11-01] MEDS: INSULIN (LEVEMIR) 100 UNITS/ML UNITS SQ SCH (21:34)
[2017-11-01] MEDS ORDERED: ATORVASTATIN CA 40 MG TABLET (FP) PO SCH (22:00)
[2017-11-02] MEDS: ACETAMINOPHEN 325 MG TABLET (FP) PO ONE ×2 (01:50→02:02)
[2017-11-02] MEDS ORDERED: ACETAMINOPHEN 1000 MG/100 ML VIAL (NON FORMULARY) IVPB ONE (02:00)
[2017-11-02 06:06] LABS: SERUM IRON SATURATION 7 % (15-55); TOTAL IRON BINDING CAPACITY 312 ug/dL (250-450); UIBC 291 ug/dL (131-425)
[2017-11-02 07:37] LABS: HEMOGLOBIN 7.4 GM/dL (10.7-15.3); MCH 26.5 pg (25.7-33.7); MCHC 32.3 g/dl (32.0-36.0); MEAN PLT VOLUME 6.7 fl (7.5-11.1); PLATELET COUNT 449 K/MM3 (134-434); RBC 2.81 M/mm3 (3.60-5.2); WHITE BLOOD COUNT 9.9 K/mm3 (4.0-10.0)
[2017-11-02 08:20] LABS: ANISOCYTOSIS 2+; PLATELET ESTIMATE INCREASED; TARGET CELLS 2+
[2017-11-02 08:38] LABS: ALBUMIN 2.6 g/dl (3.4-5.0); ANION GAP 10 MMOL/L (8-16); BLOOD UREA NITROGEN 21 mg/dL (7-18); CALCIUM 8.5 mg/dL (8.5-10.1); CHLORIDE 108 mmol/L (98-107); CO2 23 mmol/L (21-32); CREATININE 1.9 mg/dL (0.55-1.02); GLUCOSE,RANDOM 92 mg/dL (74-106); POTASSIUM 4.1 mmol/L (3.5-5.1); SGOT/AST 17 U/L (15-37); SGPT/ALT 27 U/L (12-78); SODIUM 141 mmol/L (136-145)
[2017-11-02 08:40] LABS: ALK PHOS 73 U/L (45-117); BILIRUBIN,TOTAL 0.2 mg/dL (0.2-1.0)
[2017-11-02] MEDS: INSULIN SLIDING SCALE (NOVOLOG) 1 VIAL SQ SCH ×4 (10:20→22:00)
[2017-11-02] MEDS: amLODIPine BESYLATE 10 MG TABLET (FP) PO SCH (10:20)
[2017-11-02] MEDS: INSULIN (LEVEMIR) 100 UNITS/ML UNITS SQ SCH ×2 (10:20→21:59)
[2017-11-02] MEDS ORDERED: ACETAMINOPHEN 325 MG TABLET (FP) PO PRN (10:32)
--- NOTE | 2017-11-02 11:19 | PN ---
Teaching Attending Note Name of Resident: Sherron Shirley ATTENDING PHYSICIAN STATEMENT I saw and evaluated the patient. I reviewed the resident's note and discussed the case with the resident. I agree with the resident's findings and plan as documented. SUBJECTIVE:continues to have persistent vaginal bleeding. frequent pad changes. assoc with L groin cramping. denies CP, SOB, fever, chills, N/V/C/D OBJECTIVE: Last Vital Signs Temp Pulse Resp BP Pulse Ox 97.9 F 79 18 145/67 97 11/02/17 05:00 11/02/17 05:00 11/02/17 05:00 11/02/17 05:00 11/02/17 05:00 General NAD Abdomen soft NT/ND obese ASSESSMENT AND PLAN: 47yo F with PMH anemia, HTN, DM and CKD sent to the ER for Hgb 4.6 in the office and found to have dyspnea 1. symptomatic anemia- from metomenorrhagia from fibroids. s/p 2 unit PRBC. with good response. continues to have active heavy bleeding with Hgb trending down. WIll request VEHICLE CARE SPECIALIST to evaluate. will repeat CBC later today. 2. Hyperglycemia- now controlled. cont current managmeent. Dietary eval. sugars 3. acute on CKD- likely due to anemia. baseline Cr 2.3. now improved. explained need for tighter glycemic control to prevent worsening renal function. nephro on board. will need to f/u with as outpatient 4. Leukocytosis- liekly reactive. now resolved. no indication for abx 5. Obseity- BMI 37. lifestyle modifications iwth dietary and excercise. 6. HTN- above goal. will resstart ACEI. titrate as needed 7. DVT ppx- EAM
[2017-11-02 13:53] LABS: HEMATOCRIT 23.8 % (32.4-45.2); HEMOGLOBIN 7.7 GM/dL (10.7-15.3); MCHC 32.5 g/dl (32.0-36.0); MEAN PLT VOLUME 7.1 fl (7.5-11.1); PLATELET COUNT 517 K/MM3 (134-434); RBC 2.87 M/mm3 (3.60-5.2); RDW 19.8 % (11.6-15.6); WHITE BLOOD COUNT 9.9 K/mm3 (4.0-10.0)
--- NOTE | 2017-11-02 14:17 | PN ---
Progress Note, Physician History of Present Illness: Pt seen and examined at bedside. She is awake and alert. She still has some bleeding. She denies shortness of breath or palpitations. - Current Medication List Current Medications: Active Medications Acetaminophen (Tylenol -) 650 mg PO Q4H PRN PRN Reason: PAIN Last Admin: 11/02/17 11:53 Dose: 650 mg Amlodipine Besylate (Norvasc -) 10 mg PO DAILY [facility] Last Admin: 11/02/17 10:20 Dose: 10 mg Atorvastatin Calcium (Lipitor -) 40 mg PO HS [facility] Insulin Aspart (Novolog Vial Sliding Scale -) 1 vial SQ ACHS [facility]; Protocol Last Admin: 11/02/17 10:20 Dose: Not Given Insulin Detemir (Levemir Vial) 50 units SQ BID@0700,2200 [facility] Last Admin: 11/02/17 10:20 Dose: 50 units Lisinopril (Prinivil) 20 mg PO BID [facility] - Objective Vital Signs: Vital Signs Temperature 97.9 F 11/02/17 05:00 Pulse Rate 79 11/02/17 05:00 Respiratory Rate 18 11/02/17 05:00 Blood Pressure 145/67 11/02/17 05:00 O2 Sat by Pulse Oximetry (%) 97 11/02/17 05:00 Constitutional: Yes: Calm Eyes: Yes: Conjunctiva Clear HENT: Yes: Atraumatic Neck: Yes: Supple Cardiovascular: Yes: S1, S2 Respiratory: Yes: CTA Bilaterally Gastrointestinal: Yes: Soft, Abdomen, Obese Genitourinary: Yes: WNL Musculoskeletal: Yes: WNL Edema: No Neurological: Yes: Oriented Psychiatric: Yes: Oriented Labs: CBC, BMP 11/02/17 06:45 INR, PTT INR 0.96 (0.83-1.09) 11/01/17 03:19 - ....Imaging Ultrasound: Report Reviewed Problem List - Problems (1) CKD (chronic kidney disease) Code(s): N18.9 - CHRONIC KIDNEY DISEASE, UNSPECIFIED (2) Anemia Code(s): D64.9 - ANEMIA, UNSPECIFIED Qualifiers: Anemia type: other cause Other causes of anemia: other cause, not classified Qualified Code(s): D64.89 - Other specified anemias (3) Fibroid (bleeding) (uterine) Code(s): D25.9 - LEIOMYOMA OF UTERUS, UNSPECIFIED Qualifiers: Uterine leiomyoma location: submucous Qualified Code(s): D25.0 - Submucous leiomyoma of uterus (4) Diabetic foot infection Code(s): E11.69 - TYPE 2 DIABETES MELLITUS WITH OTHER SPECIFIED COMPLICATION; L08.9 - LOCAL INFECTION OF THE SKIN AND SUBCUTANEOUS TISSUE, UNSP (5) Type 1 diabetes Code(s): E10.9 - TYPE 1 DIABETES MELLITUS WITHOUT COMPLICATIONS Assessment/Plan Current Medications Generic Name Dose Route Start Last Admin Trade Name Freq PRN Reason Stop Dose Admin Acetaminophen 650 mg 11/02/17 10:32 11/02/17 11:53 Tylenol - PO 650 mg Q4H PRN Administration PAIN Amlodipine Besylate 10 mg 11/01/17 10:00 11/02/17 10:20 Norvasc - PO 10 mg DAILY [facility] Administration Atorvastatin Calcium 40 mg 11/02/17 22:00 Lipitor - PO HS [facility] Insulin Aspart 1 vial 11/01/17 07:00 11/02/17 10:20 Novolog Vial Sliding Scale - SQ Not Given ACHS [facility] Protocol Insulin Detemir 50 units 11/01/17 22:00 11/02/17 10:20 Levemir Vial SQ 50 units BID@0700,2200 [facility] Administration Lisinopril 20 mg 11/02/17 11:30 Prinivil PO BID [facility] Impression 1. CKD 2. anemia 3. DM 4. HTN 5. obesity 6. fibroids 7. ovarian cysts 8. diabetic retinopathy Plan - renal function is improved - anemia may have contributed to the worsening of renal function - check ua, may be difficult to assess as she is having vaginal bleeding - renal ultrasound report reviewed - negative hydro on ultrasound
--- NOTE | 2017-11-02 16:16 | PN ---
Physical Exam: SUBJECTIVE: Patient seen and examined at bedside this morning. No acute events overnight. Patient complains of cramping suprapubic abdominal pain, relieved by Tylenol. OBJECTIVE: Vital Signs Period Temp Pulse Resp BP Sys/Cooper Pulse Ox Last 24 Hr 97.8 F-98.3 F 79-88 18-20 140-154/67-84 97-97 GENERAL: The patient is awake, alert, and fully oriented, in no acute distress. HEAD: Normal with no signs of trauma. EYES: PERRL, extraocular movements intact, sclera anicteric, conjunctiva clear. No ptosis. ENT: Ears normal, nares patent, oropharynx clear without exudates, moist mucous membranes. NECK: Trachea midline, full range of motion, supple. LUNGS: Breath sounds equal, clear to auscultation bilaterally, no wheezes, no crackles, no accessory muscle use. HEART: Regular rate and rhythm, S1, S2 without murmur, rub or gallop. ABDOMEN: Soft, nontender, nondistended, normoactive bowel sounds, no guarding, no rebound, no hepatosplenomegaly, no masses. EXTREMITIES: 2+ pulses, warm, well-perfused, no edema. NEUROLOGICAL: Cranial nerves II through XII grossly intact. Normal speech, gait not observed. PSYCH: Normal mood, normal affect. SKIN: Warm, dry, normal turgor, no rashes or lesions noted Laboratory Results - last 24 hr 11/01/17 11/01/17 11/01/17 06:36 17:00 17:00 WBC 13.8 H RBC 2.93 L Hgb 7.8 L Hct 24.4 L D MCV 83.3 MCH 26.5 D MCHC 31.8 L RDW 18.9 H Plt Count 542 H MPV 7.3 L Absolute Neuts (auto) Total Counted Neutrophils % Neutrophils % (Manual) Lymphocytes % Lymphocytes % (Manual) Monocytes % (Manual) Eosinophils % (Manual) Nucleated RBC % Hypochromia Platelet Estimate Platelet Comment Polychromasia Basophilic Stippling Anisocytosis Microcytosis Target Cells Sodium 138 Potassium 4.1 Chloride 106 Carbon Dioxide 20 L Anion Gap 12 BUN 23 H Creatinine 2.1 H Creat Clearance w eGFR 25.24 POC Glucometer Random Glucose 126 H Calcium 8.3 L Iron 21 L TIBC 312 Iron Saturation 7 L Total Bilirubin AST ALT Alkaline Phosphatase Total Protein Albumin 11/01/17 11/01/17 11/02/17 17:31 21:30 02:48 WBC RBC Hgb Hct MCV MCH MCHC RDW Plt Count MPV Absolute Neuts (auto) Total Counted Neutrophils % Neutrophils % (Manual) Lymphocytes % Lymphocytes % (Manual) Monocytes % (Manual) Eosinophils % (Manual) Nucleated RBC % Hypochromia Platelet Estimate Platelet Comment Polychromasia Basophilic Stippling Anisocytosis Microcytosis Target Cells Sodium Potassium Chloride Carbon Dioxide Anion Gap BUN Creatinine Creat Clearance w eGFR POC Glucometer 159 192 86 Random Glucose Calcium Iron TIBC Iron Saturation Total Bilirubin AST ALT Alkaline Phosphatase Total Protein Albumin 11/02/17 11/02/17 11/02/17 06:45 06:45 07:28 WBC 9.9 RBC 2.81 L Hgb 7.4 L Hct 23.0 L MCV 82.0 MCH 26.5 MCHC 32.3 RDW 19.0 H Plt Count 449 H MPV 6.7 L Absolute Neuts (auto) 5.7 Total Counted 100 Neutrophils % No Result Required. Neutrophils % (Manual) 66.0 Lymphocytes % No Result Required. Lymphocytes % (Manual) 23.0 D Monocytes % (Manual) 2 L D Eosinophils % (Manual) 9.0 H D Nucleated RBC % 0 Hypochromia 2+ Platelet Estimate Increased Platelet Comment No clumping noted Polychromasia 1+ Basophilic Stippling 1+ Anisocytosis 2+ Microcytosis 1+ Target Cells 2+ Sodium 141 Potassium 4.1 Chloride 108 H Carbon Dioxide 23 Anion Gap 10 BUN 21 H Creatinine 1.9 H Creat Clearance w eGFR 28.33 POC Glucometer 104 Random Glucose 92 Calcium 8.5 Iron TIBC Iron Saturation Total Bilirubin 0.2 AST 17 ALT 27 Alkaline Phosphatase 73 D Total Protein 6.0 L Albumin 2.6 L 11/02/17 11/02/17 11/02/17 10:12 12:45 13:13 WBC 9.9 RBC 2.87 L Hgb 7.7 L Hct 23.8 L MCV 83.0 MCH 27.0 MCHC 32.5 RDW 19.8 H Plt Count 517 H MPV 7.1 L Absolute Neuts (auto) 6.5 Total Counted Neutrophils % No Result Required. Neutrophils % (Manual) Lymphocytes % No Result Required. Lymphocytes % (Manual) Monocytes % (Manual) Eosinophils % (Manual) Nucleated RBC % 0 Hypochromia Platelet Estimate Platelet Comment Polychromasia Basophilic Stippling Anisocytosis Microcytosis Target Cells Sodium Potassium Chloride Carbon Dioxide Anion Gap BUN Creatinine Creat Clearance w eGFR POC Glucometer 154 179 Random Glucose Calcium Iron TIBC Iron Saturation Total Bilirubin AST ALT Alkaline Phosphatase Total Protein Albumin Active Medications Generic Name Dose Route Start Last Admin Trade Name Freq PRN Reason Stop Dose Admin Acetaminophen 650 mg 11/02/17 10:32 11/02/17 11:53 Tylenol - PO 650 mg Q4H PRN Administration PAIN Amlodipine Besylate 10 mg 11/01/17 10:00 11/02/17 10:20 Norvasc - PO 10 mg DAILY [facility] Administration Atorvastatin Calcium 40 mg 11/02/17 22:00 Lipitor - PO HS [facility] Insulin Aspart 1 vial 11/01/17 07:00 11/02/17 10:20 Novolog Vial Sliding Scale - SQ Not Given ACHS [facility] Protocol Insulin Detemir 50 units 11/01/17 22:00 11/02/17 10:20 Levemir Vial SQ 50 units BID@0700,2200 [facility] Administration Lisinopril 20 mg 11/02/17 11:30 Prinivil PO BID [facility] Imaging CXR- In comparison to CXR in 08/25/17, slightly weaker inspiration with central crowding, linear atelectasis left midlung field and slightly more prominent heart. Angles are sharp. Bones and soft tissues are intact. TVS- Enlarged fibroid uterus, as described above. Poor visualization of the endometrial stripe that appears to be significantly thickened measuring 2.2 cm in AP dimension. Differential diagnosis includes endometrial hyperplasia, polyps and a neoplastic process. Further evaluation with MRI or follow-up ultrasound in first week of the next menstrual cycle is needed. ASSESSMENT/PLAN: 47 y/o female with PMH of HTN, DM, anemia, HLD, presents to the ED with heavy vaginal bleeding for the past three weeks along with symptomatic anemia. # Anemia secondary to heavy Vaginal Bleeding -Hgb today stable at 7.7. -s/p transfusion 2 units pRBC -repeat CBC after transfusion Hgb 7.8 -iron studies pending -Retic ct - 6.31; Ferritin - 28.5 -B12 - 1112 -monitor hemodynamics #Heavy vaginal bleeding: likely secondary to fibroid uterus -TVS: Enlarged fibroid uterus, as described above. Poor visualization of the endometrial stripe that appears to be significantly thickened measuring 2.2 cm in AP dimension. Differential diagnosis includes endometrial hyperplasia, polyps and a neoplastic process. -Dr. Lassiter consulted. Recommendations appreciated. -Methylprogesterone acetate (Depo-provera) 150mg IM once. -Tyenol 650mg PO PRN for pain. # DM -patient's sugar controlled with Levemir and ISS -continue ISS -continue Levemir at 50 units BID -negative serum acetone -HbA1c - 9.5 -Chol - 157; TG - 100; LDL 89; HDL - 53 -Dietary evaluation requested. #CKD -patient's Cr improving. -Lisinopril and HCTZ held. -Dr. Sanchez consulted. Recommendations appreciated. -Pt will need outpatient workup -Renal ultrasound -normal kidneys with no evidence of hydronephrosis or acute pathology. -UA with Protein to Creatinine ratio ordered. -Dr. Greenwood d/w pt in detail terminal gauger supervisor risks of uncontrolled sugars which can be prevented with sugar control and encouraged patient to speak with PMD about some of the newer agents. #HTN -restarted Amlodipine 10mg daily -held Lisinopril and HCTZ #HLD -c/w lipitor 40 #Leukocytosis: resolved -likely reactive -no signs or focus of infection -UA pending -will repeat CBC #F/E/N: -received 1 L bolus -electrolytes wnl, routine bmp monitoring -sodium restricted diet #PPx -patient is actively bleeding -early ambulation #Disposition -med-surg obs Visit type - Emergency Visit Emergency Visit: Yes ED Registration Date: 11/02/17 Care time: The patient presented to the Emergency Department on the above date and was hospitalized for further evaluation of their emergent condition. - New Patient This patient is new to me today: Yes Date on this admission: 11/02/17 - Critical Care Critical Care patient: No - Discharge Referral Referred to [facility] Med P.C.: No
[2017-11-02 16:48] LABS: PLATELET ESTIMATE INCREASED
[2017-11-02] MEDS: LISINOPRIL 10 MG TABLET (FP) PO SCH ×2 (17:14→21:59)
[2017-11-02] MEDS ORDERED: medroxyPROGESTERone ACET 150 MG/1 ML VIAL IM ONE (17:38)
[2017-11-02] MEDS ORDERED: INSULIN (NOVOLOG) ASPART 100 UNITS/ML 10ML VIAL ONE (21:32)
[2017-11-02] MEDS ORDERED: ATORVASTATIN CA 40 MG TABLET (FP) PO SCH (22:00)
--- NOTE | 2017-11-02 23:48 | CONS ---
DATE OF CONSULTATION: 11/02/2017 REASON FOR CONSULTATION: Vaginal bleeding, fibroid, and anemia. CONSULTATION: I was asked to see this patient because of complaint of heavy vaginal bleeding, history of fibroid, and anemia. This is a 47-year-old pleasant female with a past medical history of fibroid uterus and history of anemia in the past which had received transfusion in the past admitted complaining of dizziness and weakness and found to have severe anemia on admission. Her hemoglobin was 5.2, hematocrit 18.1. She states that she has been having vaginal bleeding for 3 weeks and her periods have been heavy every month. She had a sonogram that showed uterus to be 12.7 cm with a 3.2 cm fundal myoma and also bilateral ovarian cysts each about 3 cm. Patient now has received transfusion and is asymptomatic but has small to moderate amount of bleeding. PAST MEDICAL HISTORY: Significant for history of hypertension, diabetes, history of congestive heart failure, and renal insufficiency. PHYSICAL EXAMINATION: ABDOMEN: Soft, nontender. No masses are palpable. VAGINAL: Examination showed a small amount of dark bleeding in the vagina. Cervical os was closed. Difficult to visualize the cervix because of the bleeding. Uterus was prominent and irregular. Adnexa no masses palpable. Cul-de-sac was no masses palpable. IMPRESSION: 1. Fibroid uterus and thickened endometrium. 2. History of chronic anemia secondary to blood loss from the uterus. In view of patient's high-risk situation with hypertension, diabetes, congestive heart failure, and renal insufficiency, advised the patient to be treated with 1 dose of Depo-Provera and be observed. If the bleeding stops, patient states that she has an appointment with [facility] at [facility] for evaluation. Patient was encouraged prompt followup and possible endometrial biopsy or dilatation and curettage at the tertiary care center. Patient understands the importance of followup and will be seeing a [facility] at [facility]. MOY RHODES M.D. /[id number]
[2017-11-03] MEDS: INSULIN SLIDING SCALE (NOVOLOG) 1 VIAL SQ SCH ×2 (06:03→11:41)
[2017-11-03] MEDS ORDERED: INSULIN (LEVEMIR) 100 UNITS/ML UNITS SQ ONE ×3 (06:58→11:16)
[2017-11-03] MEDS ORDERED: INSULIN (NOVOLOG) ASPART 100 UNITS/ML 10ML VIAL ONE ×2 (06:58→11:08)
[2017-11-03] MEDS ORDERED: PT OWN MED DRAWER 7, Y5N ONE ×2 (07:00→11:10)
[2017-11-03 07:09] LABS: HEMATOCRIT 22.3 % (32.4-45.2); HEMOGLOBIN 7.2 GM/dL (10.7-15.3); MCH 26.7 pg (25.7-33.7); MCHC 32.2 g/dl (32.0-36.0); MEAN CELL VOLUME 83.1 fl (80-96); MEAN PLT VOLUME 6.9 fl (7.5-11.1); PLATELET COUNT 472 K/MM3 (134-434); RBC 2.69 M/mm3 (3.60-5.2); RDW 19.2 % (11.6-15.6); WHITE BLOOD COUNT 10.1 K/mm3 (4.0-10.0)
[2017-11-03 07:27] LABS: ANION GAP 8 MMOL/L (8-16); BLOOD UREA NITROGEN 24 mg/dL (7-18); CALCIUM 8.4 mg/dL (8.5-10.1); CHLORIDE 106 mmol/L (98-107); CO2 26 mmol/L (21-32); CREATININE 2.3 mg/dL (0.55-1.02); GLUCOSE,RANDOM 120 mg/dL (74-106); POTASSIUM 4.5 mmol/L (3.5-5.1); SODIUM 140 mmol/L (136-145)
--- NOTE | 2017-11-03 09:22 | PN ---
Progress Note (short form) - Note Progress Note: 1. CKD 2. anemia 3. DM 4. HTN 5. obesity 6. fibroids 7. ovarian cysts 8. diabetic retinopathy Active Medications Acetaminophen (Tylenol -) 650 mg PO Q4H PRN PRN Reason: PAIN Last Admin: 11/02/17 11:53 Dose: 650 mg Amlodipine Besylate (Norvasc -) 10 mg PO DAILY [facility] Last Admin: 11/02/17 10:20 Dose: 10 mg Atorvastatin Calcium (Lipitor -) 40 mg PO HS [facility] Last Admin: 11/02/17 21:59 Dose: 40 mg Insulin Aspart (Novolog Vial Sliding Scale -) 1 vial SQ [facility]; Protocol Last Admin: 11/03/17 06:03 Dose: Not Given Insulin Detemir (Levemir Vial) 50 units SQ BID@0700,2200 [facility] Last Admin: 11/02/17 21:59 Dose: 50 units Lisinopril (Prinivil) 20 mg PO BID [facility] Last Admin: 11/02/17 21:59 Dose: 20 mg Last Vital Signs Temp Pulse Resp BP Pulse Ox 98 F 86 20 115/62 97 11/03/17 05:05 11/03/17 05:05 11/03/17 05:05 11/03/17 05:05 11/03/17 05:00 sleeping but arousable no complaints lungs clear heart reg rate and rhythm abd soft nontender CBC, BMP 11/03/17 06:30 11/03/17 06:30 IMP- renal function same anemia Plan- hydration monitor renal function
[2017-11-03] MEDS ORDERED: IRON SUCROSE INJECTION 200 MG in SODIUM CHLORIDE 90 ML IVPB ONE (10:09)
--- NOTE | 2017-11-03 10:09 | PN ---
Progress Note (short form) - Note Progress Note: states she feels much better today. says vaginal bleeding stopped this morning. denies CP, SOB, fever, chills, N/V/C/D or cramping Current Medications Generic Name Dose Route Start Last Admin Trade Name [place] PRN Reason Stop Dose Admin Acetaminophen 650 mg 11/02/17 10:32 11/02/17 11:53 Tylenol - PO 650 mg Q4H PRN Administration PAIN Amlodipine Besylate 10 mg 11/01/17 10:00 11/02/17 10:20 Norvasc - PO 10 mg DAILY MELINDA Administration Atorvastatin Calcium 40 mg 11/02/17 22:00 11/02/17 21:59 Lipitor - PO 40 mg HS MELINDA Administration Insulin Aspart 1 vial 11/01/17 07:00 11/03/17 06:03 Novolog Vial Sliding Scale - SQ Not Given [facility] Protocol Insulin Detemir 50 units 11/01/17 22:00 11/02/17 21:59 Levemir Vial SQ 50 units BID@0700,2200 MELINDA Administration Lisinopril 20 mg 11/02/17 11:30 11/02/17 21:59 Prinivil PO 20 mg BID MELINDA Administration Last Vital Signs Temp Pulse Resp BP Pulse Ox 98 F 86 20 115/62 97 11/03/17 05:05 11/03/17 05:05 11/03/17 05:05 11/03/17 05:05 11/03/17 05:00 General NAD Abdomen soft NT/ND obese CBCD WBC 10.1 K/mm3 (4.0-10.0) H 11/03/17 06:30 RBC 2.69 M/mm3 (3.60-5.2) L 11/03/17 06:30 Hgb 7.2 GM/dL (10.7-15.3) L 11/03/17 06:30 Hct 22.3 % (32.4-45.2) L 11/03/17 06:30 MCV 83.1 fl (80-96) 11/03/17 06:30 MCHC 32.2 g/dl (32.0-36.0) 11/03/17 06:30 RDW 19.2 % (11.6-15.6) H 11/03/17 06:30 Plt Count 472 K/MM3 (134-434) H 11/03/17 06:30 MPV 6.9 fl (7.5-11.1) L 11/03/17 06:30 CMP Sodium 140 mmol/L (136-145) 11/03/17 06:30 Potassium 4.5 mmol/L (3.5-5.1) 11/03/17 06:30 Chloride 106 mmol/L (98-107) 11/03/17 06:30 Carbon Dioxide 26 mmol/L (21-32) 11/03/17 06:30 Anion Gap 8 MMOL/L (8-16) 11/03/17 06:30 BUN 24 mg/dL (7-18) H 11/03/17 06:30 Creatinine 2.3 mg/dL (0.55-1.02) H 11/03/17 06:30 Creat Clearance w eGFR 22.73 (>60) 11/03/17 06:30 Calcium 8.4 mg/dL (8.5-10.1) L 11/03/17 06:30 Total Bilirubin 0.2 mg/dL (0.2-1.0) 11/02/17 06:45 AST 17 U/L (15-37) 11/02/17 06:45 ALT 27 U/L (12-78) 11/02/17 06:45 Alkaline Phosphatase 73 U/L (45-117) D 11/02/17 06:45 Total Protein 6.0 g/dl (6.4-8.2) L 11/02/17 06:45 Albumin 2.6 g/dl (3.4-5.0) L 11/02/17 06:45 ASSESSMENT AND PLAN: 47yo F with PMH anemia, HTN, DM and CKD sent to the ER for Hgb 4.6 in the office and found to have dyspnea 1. symptomatic anemia- from metomenorrhagia from fibroids. s/p 2 unit PRBC. received Depo-Provera injection last night. Hgb slowly trended down this AM but now noted to have stopped vaginal bleeding. will give dose of venofer as pt is also iron deficient. bosy will likely compensate with cessation of blood loss. has appt next week with INFECTIOUS DISEASE TECHNICIAN to discuss hysterectomy. pt will f/u with PMD next week for CBC check to evalute if require more blood product. 2. Hyperglycemia- sugar low this AM. not symptomatic. reported not eating much here (preference vs trying to eat healthier). will give levemir 25units this AM. pt states she checks her sugars regularly and is comfortable adjusting insulin to control sugars. A1c 9.5. spoke with dietary yesterday. verbalized understanding importance of tight glycemic control. will f/u with PMD for sugar evaluation. 3. acute on CKD- likely due to anemia. baseline Cr 2.3. now improved. explained need for tighter glycemic control to prevent worsening renal function. nephro on board. will need to f/u with as outpatient 4. Leukocytosis- liekly reactive. now resolved. no indication for abx 5. Obseity- BMI 37. lifestyle modifications iwth dietary and excercise. 6. HTN- improved. cont home medication 7. DVT ppx- EAM 8. will d/c home after venofer infusion Visit type - Emergency Visit Emergency Visit: Yes ED Registration Date: 11/02/17 Care time: The patient presented to the Emergency Department on the above date and was hospitalized for further evaluation of their emergent condition. - New Patient This patient is new to me today: No - Critical Care Critical Care patient: No - Discharge Referral Referred to [facility] Med P.C.: No
[2017-11-03] MEDS: INSULIN (LEVEMIR) 100 UNITS/ML UNITS SQ SCH (10:51)
[2017-11-03] MEDS: LISINOPRIL 10 MG TABLET (FP) PO SCH (11:38)
[2017-11-03] MEDS: amLODIPine BESYLATE 10 MG TABLET (FP) PO SCH (11:39)
[2017-11-03 16:23] VITALS: BP 155/80; PULSE 87; TEMP 98.6
--- NOTE | 2017-11-05 08:55 | DS ---
Physical Exam: SUBJECTIVE: See attending progress note for subjective and physical exam. OBJECTIVE: LABS Laboratory Results - last 24 hr 11/01/17 03:19 Blood Type O POSITIVE Antibody Screen Negative Crossmatch See Detail CBC,CMP WBC 10.1 K/mm3 (4.0-10.0) H 11/03/17 06:30 RBC 2.69 M/mm3 (3.60-5.2) L 11/03/17 06:30 Hgb 7.2 GM/dL (10.7-15.3) L 11/03/17 06:30 Hct 22.3 % (32.4-45.2) L 11/03/17 06:30 MCV 83.1 fl (80-96) 11/03/17 06:30 MCH 26.7 pg (25.7-33.7) 11/03/17 06:30 MCHC 32.2 g/dl (32.0-36.0) 11/03/17 06:30 RDW 19.2 % (11.6-15.6) H 11/03/17 06:30 Plt Count 472 K/MM3 (134-434) H 11/03/17 06:30 MPV 6.9 fl (7.5-11.1) L 11/03/17 06:30 Absolute Neuts (auto) 6.5 K/mm3 (1.5-8.0) 11/02/17 13:13 Total Counted 100 11/02/17 06:45 Neutrophils % No Result Required. 11/02/17 13:13 Neutrophils % (Manual) 75.5 % (42.8-82.8) 11/02/17 13:13 Band Neutrophils % 0.0 % 11/02/17 13:13 Lymphocytes % No Result Required. 11/02/17 13:13 Lymphocytes % (Manual) 18.4 % (8-40) 11/02/17 13:13 Monocytes % 4.0 % (3.8-10.2) 11/01/17 03:19 Monocytes % (Manual) 3 % (3.8-10.2) L 11/02/17 13:13 Eosinophils % 2.4 % (0-4.5) 11/01/17 03:19 Eosinophils % (Manual) 3.0 % (0-4.5) 11/02/17 13:13 Basophils % 1.4 % (0-2.0) 11/01/17 03:19 Basophils % (Manual) 0.0 % (0-2.0) 11/02/17 13:13 Myelocytes % (Man) 0 % (0-2) 11/02/17 13:13 Promyelocytes % (Man) 0 % (0-2) 11/02/17 13:13 Blast Cells % (Manual) 0 % (0-0) 11/02/17 13:13 Nucleated RBC % 1 % (0-0) H 11/02/17 13:13 Metamyelocytes 0 % (0-2) 11/02/17 13:13 Hypochromia 2+ 11/02/17 06:45 Platelet Estimate Increased 11/02/17 13:13 Platelet Comment No clumping noted 11/02/17 06:45 Polychromasia 1+ 11/02/17 06:45 Basophilic Stippling 1+ 11/02/17 06:45 Anisocytosis 2+ 11/02/17 06:45 Microcytosis 1+ 11/02/17 06:45 Target Cells 2+ 11/02/17 06:45 Retic Count 6.31 % (0.5-1.5) H 11/01/17 06:36 Sodium 140 mmol/L (136-145) 11/03/17 06:30 Potassium 4.5 mmol/L (3.5-5.1) 11/03/17 06:30 Chloride 106 mmol/L (98-107) 11/03/17 06:30 Carbon Dioxide 26 mmol/L (21-32) 11/03/17 06:30 Anion Gap 8 MMOL/L (8-16) 11/03/17 06:30 BUN 24 mg/dL (7-18) H 11/03/17 06:30 Creatinine 2.3 mg/dL (0.55-1.02) H 11/03/17 06:30 Creat Clearance w eGFR 22.73 (>60) 11/03/17 06:30 POC Glucometer 184 UNITS (80-120) 11/03/17 11:40 Random Glucose 120 mg/dL (74-106) H 11/03/17 06:30 Hemoglobin A1c % 9.5 % (4.8-6.0) H 11/01/17 06:36 Calcium 8.4 mg/dL (8.5-10.1) L 11/03/17 06:30 Phosphorus 4.4 mg/dL (2.5-4.9) 11/01/17 03:19 Magnesium 1.9 mg/dL (1.8-2.4) 11/01/17 03:19 Iron 21 ug/dL (27-159) L 11/01/17 06:36 TIBC 312 ug/dL (250-450) 11/01/17 06:36 Iron Saturation 7 % (15-55) L 11/01/17 06:36 Ferritin 28.5 ng/ml (6.9-282.5) 11/01/17 06:36 Total Bilirubin 0.2 mg/dL (0.2-1.0) 11/02/17 06:45 AST 17 U/L (15-37) 11/02/17 06:45 ALT 27 U/L (12-78) 11/02/17 06:45 Alkaline Phosphatase 73 U/L (45-117) D 11/02/17 06:45 Troponin I < 0.02 ng/ml (0.00-0.05) 11/01/17 03:19 Total Protein 6.0 g/dl (6.4-8.2) L 11/02/17 06:45 Albumin 2.6 g/dl (3.4-5.0) L 11/02/17 06:45 Triglycerides 100 mg/dL (35-160) 11/01/17 06:36 Cholesterol 157 mg/dL (50-200) 11/01/17 06:36 Total LDL Cholesterol 89 mg/dL (5-100) 11/01/17 06:36 HDL Cholesterol 53 mg/dL (40-60) 11/01/17 06:36 Vitamin B12 1112 pg/ml (180-914) H 11/01/17 06:36 Imaging CXR - Since the prior study 08/25/17, there is a slightly weaker inspiration with central crowding, linear atelectasis left midlung field and slightly more prominent heart. The angles are sharp. The bones and soft tissues are intact. Transvaginal US - Enlarged fibroid uterus. Poor visualization of the endometrial stripe that appears to be significantly thickened measuring 2.2 cm in AP dimension. Differential diagnosis includes endometrial hyperplasia, polyps and a neoplastic process. Renal US - Morphologically normal kidneys with no evidence of hydronephrosis or acute pathology. HOSPITAL COURSE: Date of Admission:11/02/17 Date of Discharge: 11/05/17 Patient is a 47 y/o female with PMH of DM,HTN, anemia, fibroids presents to the ED with heavy vaginal bleeding associated with SOB/weakness/palpitations. Patient states for the past three weeks her menstrual period has lasted and she has been heavily bleeding, using about 4 pads an hour and has been also passing clots. Patient was sent in from PCP found to have Hgb of 4.6. Of note, patient was here 2 months ago with similar complaints where she received 1 unit of blood. She has not consulted a plane captain. She endorses dyspnea and lightheadedness. Patient was admitted for symptomatic anemia. She came in with Hgb of 5.4 accompanied by menometrorrhagia. Patient was transfused with 2 units pRBCs. TVS was done which revealed an enlarged fibroid uterus. Gynecology was consulted. Patient was given Depo-provera injection which stopped the vaginal bleeding and venofer injection for WILLEM. Patient was discharged with stable Hgb with instructions to follow-up with SALES OFFICE MANAGER in 1 week to discuss treatment options. Patient was also instructed to visit PCP in 1 week for a repeat CBC to evaluate if more blood is required. Patient on admission was also noted to have glucose of >400. Home dose of levemir 50 units BID was resumed. Cinder Dump Crane Operator consulted. Patient verbalized understanding of importance of tight glycemic control. Patient also had acute on CKD. Nephro was consulted. Likely due to anemia and poor glycemic control. Patient instructed to follow-up with nephro as outpatient. Minutes to complete discharge: 45 Discharge Summary Reason For Visit: ANEMIA UTERINE LEIOMYOMA Condition: Stable - Instructions Diet, Activity, Other Instructions: You were admitted to the hospital because you had heavy menstrual bleeding for 3 weeks and your hemoglobin was noted to be very low at your doctor's office. At the ED you were noted to be anemic with hemoglobin of 5.4. You were transfused with 2 units of packed red blood cells. You also received IV Iron. Please make your appointment to the plane captain as soon as your discharged to talk about options on how to manage your heavy menstrual bleeding. For Diabetes, continue your insulin levemir at 50-60 units twice a day. Check your sugars regularly, your goal to be <120. You should have your A1c checked in 3 months. Here it was 9.5. Follow instruction given by shop clerk on how to adjust your diet to improve your sugar control Excercise 3x/week for 30minutes and slowly increase your intensity as tolerated. You should aim to loose 1 pound per week. You need to follow up with your primary care physician Dr. Cadena next week. You should have your blood counts checked to ensure they are stable. You should also have your iron levels and HbA1c repeated in 3 months to further adjust your medications as needed. Refer to medication list for your medications. If you experience worsening fevers, chills, chest pain, shortness of breath, nausea, vomiting , diarrhea, or continued vaginal bleeding please return to the emergency department for evaluation. Referrals: ON STAFF,NOT [Primary Care Provider] - 1 Week Disposition: HOME - Home Medications Comprehensive Discharge Medication List: Ambulatory Orders Insulin Sliding Scale [Novolog Vial Sliding Scale -] 10 units SQ BIDAC 06/11/14 Lisinopril [Zestril] 20 mg PO BID 06/11/14 Docusate Sodium [Colace] 100 mg PO BID PRN #28 capsule 08/26/17 Ferrous Sulfate 325 mg PO DAILY #30 tablet 08/26/17 Amlodipine Besylate [Norvasc -] 10 mg PO DAILY 11/01/17 Atorvastatin Ca [Lipitor] 40 mg PO HS 11/01/17 Cholecalciferol (Vitamin D3) [Dialyvite Vitamin D3 Max] 50,000 unit PO WEEKLY Insulin Detemir [Levemir Flextouch] 52 unit SQ BID 11/01/17 This patient is new to me today: Yes Date on this admission: 11/05/17 Emergency Visit: Yes ED Registration Date: 11/02/17 Care time: The patient presented to the Emergency Department on the above date and was hospitalized for further evaluation of their emergent condition. Critical Care patient: No - Discharge Referral Referred to [facility] Med P.C.: No
== END 2017-11-03 17:16 | disposition home or self-care (01) | DRG 760 ==
LOC: JER 00:46 → J7W 01:11 → JER 01:11 → JERBED 03:58 → UNDOADMOB 04:39 → JERBED 04:39 → J5S 09:07 → OBSVTOIN 11-02 15:34
PROVIDERS: ADMIT Internal Medicine; ATTEND Internal Medicine
PROC: 30233N1 Transfusion of Nonautologous Red Blood Cells into Peripheral Vein, Percutaneous Approach (ICD-10-PCS; principal; 2017-11-01)
DX: D25.0 Submucous leiomyoma of uterus (principal); I13.0 Hypertensive heart and chronic kidney disease with heart failure and stage 1 through stage 4 chronic kidney disease, or unspecified chronic kidney disease; Z89.421 Acquired absence of other right toe(s); D64.9 Anemia, unspecified; E66.9 Obesity, unspecified; Z87.891 Personal history of nicotine dependence; Z89.422 Acquired absence of other left toe(s); I50.9 Heart failure, unspecified; E11.65 Type 2 diabetes mellitus with hyperglycemia; N18.9 Chronic kidney disease, unspecified; E11.22 Type 2 diabetes mellitus with diabetic chronic kidney disease; Z68.37 Body mass index [BMI] 37.0-37.9, adult; E11.51 Type 2 diabetes mellitus with diabetic peripheral angiopathy without gangrene; D72.829 Elevated white blood cell count, unspecified; Z79.4 Long term (current) use of insulin; E11.319 Type 2 diabetes mellitus with unspecified diabetic retinopathy without macular edema; N83.209 Unspecified ovarian cyst, unspecified side; R93.8 Abnormal findings on diagnostic imaging of other specified body structures
CPT/HCPCS: 36415; 36430; 71045-TC-FY; 76775-TC; 76830-TC; 80048; 80053; 80061; 82009; 82607; 82728; 82962; 83036; 83540; 83550; 83721; 83735; 84100; 84484; 84703; 85025; 85027; 85044; 85610; 86850; 86900; 86901; 86922; 93005; 93010; 99284-25; G0378; J0131; J1756; J7030; P9038; P9058

== ENCOUNTER 2018-01-15 09:00 | Inpatient (IN) | payer OTHER ==
[2018-01-29 17:22] VITALS: BMI 36.8
[2018-01-31 13:37] LABS: HEMATOCRIT 25.1 % (32.4-45.2); HEMOGLOBIN 7.4 GM/dL (10.7-15.3); MCH 20.7 pg (25.7-33.7); MCHC 29.5 g/dl (32.0-36.0); MEAN CELL VOLUME 70.3 fl (80-96); MEAN PLT VOLUME 6.5 fl (7.5-11.1); PLATELET COUNT 843 K/MM3 (134-434); RBC 3.58 M/mm3 (3.60-5.2); RDW 27.1 % (11.6-15.6); WHITE BLOOD COUNT 9.1 K/mm3 (4.0-10.0)
[2018-01-31] MEDS ORDERED: ROPIVACAINE HCL 0.5% 30ML VIAL ONE (14:00)
[2018-01-31] MEDS ORDERED: PROPOFOL 20 ML ONE (14:05)
[2018-01-31] MEDS ORDERED: fentaNYL CITRATE 250 MCG/5 ML VIAL ONE (14:05)
[2018-01-31] MEDS ORDERED: ROCURONIUM BROMIDE 50 MG/5 ML VIAL ONE ×2 (14:05→16:48)
[2018-01-31] MEDS ORDERED: LIDOCAINE HCL/PF 2% SDV 5ML VIAL ONE (14:06)
[2018-01-31] MEDS ORDERED: MIDAZOLAM HCL 2 MG/2 ML SINGLE DOSE VIAL ONE ×2 (14:06)
[2018-01-31] MEDS ORDERED: DEXAMETHASONE SOD PHOSPHATE 4 MG/1 ML VIAL ONE (14:06)
[2018-01-31] MEDS ORDERED: INSULIN REGULAR HUMAN 100 UNITS/ML *VIAL SQ ONE (14:10)
[2018-01-31] MEDS ORDERED: ceFAZolin SODIUM 1 GM VIAL ONE (16:18)
[2018-01-31] MEDS ORDERED: ceFAZolin 2 GRAM PREMIX BAG IVPB ONE (16:20)
[2018-01-31] MEDS ORDERED: ONDANSETRON 4 MG/2 ML VIAL IVPUSH PRN ×2 (16:31→18:38)
[2018-01-31] MEDS ORDERED: PROMETHAZINE HCL 25 MG/1 ML VIAL IVPB PRN (16:31)
[2018-01-31] MEDS ORDERED: DEXAMETHASONE SOD PHOSPHATE 4 MG/1 ML VIAL IVPUSH PRN (16:31)
[2018-01-31] MEDS ORDERED: HYDROmorphone *PCA* 10MG/50ML DISP.SYRIN PCA SCH (16:45)
[2018-01-31] MEDS ORDERED: LACTATED RINGERS SOLUTION 1,000 ML IV SCH (16:45)
[2018-01-31] MEDS ORDERED: TRANEXAMIC ACID 1000 MG/10 ML VIAL ONE (17:10)
[2018-01-31] MEDS ORDERED: GLYCOPYRROLATE 0.2 MG/1 ML VIAL ONE (17:41)
[2018-01-31] MEDS ORDERED: NEOSTIGMINE METHYLSULFATE 0.5 MG/ML - 10 ML MDV ONE (17:41)
[2018-01-31] MEDS ORDERED: IBUPROFEN 600 MG TABLET (FP) PO PRN (18:38)
[2018-01-31] MEDS ORDERED: ELECTROLYTE-148 SOLN 1,000 ML IV SCH (18:45)
[2018-01-31] MEDS ORDERED: HYDROmorphone *PCA* 10MG/50ML DISP.SYRIN PCA ONE ×2 (18:47→19:05)
[2018-01-31 19:37] LABS: BASO % 1.2 % (0-2.0); EOS % 0.4 % (0-4.5); HEMATOCRIT 30.7 % (32.4-45.2); HEMOGLOBIN 9.6 GM/dL (10.7-15.3); LYMPH % 10.2 % (8-40); MCH 23.1 pg (25.7-33.7); MCHC 31.4 g/dl (32.0-36.0); MEAN CELL VOLUME 73.6 fl (80-96); MEAN PLT VOLUME 7.1 fl (7.5-11.1); MONO % 2.8 % (3.8-10.2); NEUT % 85.4 % (42.8-82.8); PLATELET COUNT 827 K/MM3 (134-434); RBC 4.18 M/mm3 (3.60-5.2); RDW 27.4 % (11.6-15.6); WHITE BLOOD COUNT 21.3 K/mm3 (4.0-10.0)
[2018-01-31 19:47] LABS: ANION GAP 9 MMOL/L (8-16); BLOOD UREA NITROGEN 42 mg/dL (7-18); CALCIUM 8.4 mg/dL (8.5-10.1); CHLORIDE 104 mmol/L (98-107); CO2 21 mmol/L (21-32); CREATININE 2.7 mg/dL (0.55-1.3); GLUCOSE,RANDOM 239 mg/dL (74-106); POTASSIUM 4.7 mmol/L (3.5-5.1); SODIUM 135 mmol/L (136-145)
--- NOTE | 2018-01-31 21:26 | HP ---
History & Physical Update - Physical Physical: No Change - Assessment Assessment: No Change - Plan Plan: No Change (hx of severe anemia , HTN, DM , fibroid uterus , admitted for supracervical abdominal hysterectomy, possible BSO)
--- NOTE | 2018-01-31 21:30 | PN ---
Progress Note (short form) - Note Progress Note: 230 pm patient admitted for hysterectomy for severe anemia and fibroid uterus HB on admission 7 gm, elvated BS over 300 , advised to cancels surgery, get blood transfusion or iron transfusion , regulate BS prior to surgery , patient declined ,crying, insisting does not want to cancell surgery , risks of uncontrolled BS and anemia discussed , fully aware of all risks, case discussed with anesthesiologists Dr Bocanegra
[2018-01-31 21:31] LABS: ANISOCYTOSIS 2+; MACROCYTOSIS 2+; PLATELET ESTIMATE INCREASED
[2018-01-31] MEDS: ATORVASTATIN CA 40 MG TABLET (FP) PO SCH (22:35)
[2018-01-31] MEDS: LISINOPRIL 20 MG TABLET (FP) PO SCH (22:35)
[2018-01-31] MEDS: INSULIN SLIDING SCALE (NOVOLOG) 1 VIAL SQ SCH (22:39)
[2018-01-31] MEDS: IBUPROFEN 800 MG/8 ML IJ IVPB PRN (22:40)
[2018-02-01] MEDS: CEFAZOLIN 2 GM/D5W 2 GM/50 ML ML IVPB SCH ×2 (01:05→08:00)
[2018-02-01] MEDS ORDERED: ceFAZolin 2 GRAM PREMIX BAG IVPB SCH (02:00)
[2018-02-01] MEDS: IBUPROFEN 800 MG/8 ML IJ IVPB PRN (05:10)
[2018-02-01] MEDS: INSULIN SLIDING SCALE (NOVOLOG) 1 VIAL SQ SCH ×4 (06:29→21:31)
[2018-02-01 08:08] LABS: ANION GAP 11 MMOL/L (8-16); BLOOD UREA NITROGEN 46 mg/dL (7-18); CALCIUM 7.9 mg/dL (8.5-10.1); CHLORIDE 103 mmol/L (98-107); CO2 20 mmol/L (21-32); CREATININE 2.8 mg/dL (0.55-1.3); POTASSIUM 4.7 mmol/L (3.5-5.1); SODIUM 134 mmol/L (136-145)
[2018-02-01 08:15] LABS: GLUCOSE,RANDOM 311 mg/dL (74-106)
[2018-02-01 09:16] LABS: HEMATOCRIT 29.5 % (32.4-45.2); HEMOGLOBIN 9.2 GM/dL (10.7-15.3); MCH 23.2 pg (25.7-33.7); MCHC 31.1 g/dl (32.0-36.0); MEAN CELL VOLUME 74.5 fl (80-96); PLATELET COUNT 780 K/MM3 (134-434); RBC 3.97 M/mm3 (3.60-5.2); RDW 26.3 % (11.6-15.6); WHITE BLOOD COUNT 21.6 K/mm3 (4.0-10.0)
[2018-02-01] MEDS ORDERED: INSULIN (LEVEMIR) 100 UNITS/ML UNITS SQ ONE (09:27)
[2018-02-01] MEDS: ENOXAPARIN NA (PORCINE) 40 MG/0.4 ML DISP.SYRIN SQ SCH (10:00)
[2018-02-01] MEDS ORDERED: HYDROCHLOROTHIAZIDE 50 MG TABLET PO SCH (10:00)
[2018-02-01] MEDS: oxyCODONE HCL 5 MG TABLET PO PRN ×4 (10:15→23:02)
[2018-02-01] MEDS: LISINOPRIL 20 MG TABLET (FP) PO SCH ×2 (10:17→23:02)
[2018-02-01] MEDS: amLODIPine BESYLATE 10 MG TABLET (FP) PO SCH (10:17)
[2018-02-01 12:23] LABS: HEMATOCRIT 29.9 % (32.4-45.2); MCH 22.4 pg (25.7-33.7); MCHC 30.2 g/dl (32.0-36.0); MEAN PLT VOLUME 6.7 fl (7.5-11.1); PLATELET COUNT 741 K/MM3 (134-434); RBC 4.04 M/mm3 (3.60-5.2); RDW 27.2 % (11.6-15.6); WHITE BLOOD COUNT 20.7 K/mm3 (4.0-10.0)
[2018-02-01 12:24] LABS: ADD RBC MORPHOLOGY YES
[2018-02-01 12:54] LABS: ANISOCYTOSIS 1+; MACROCYTOSIS 0; PLATELET ESTIMATE INCREASED
--- NOTE | 2018-02-01 13:18 | PN ---
Progress Note (short form) - Note Progress Note: pod 1 s/p supracervical abdominal hysterectomy, BSO IDDM poorly controlled with CRF , retinapthy anemia doing well , has on and off cough . mild incisional pain CBC, BMP 02/01/18 10:51 02/01/18 06:00 Last Vital Signs Temp Pulse Resp BP Pulse Ox 97.9 F 98 H 24 H 136/67 96 02/01/18 12:57 02/01/18 12:57 02/01/18 12:57 02/01/18 12:57 01/31/18 21:00 abdomen soft, no distension, no cva no guarding, BS decreased but presentno calf tenderness incision dry, clean no calf tenderness no vaginal bleeding urine clear, adequate i/o balance 650 impression pod 1 , afebrile , elevated WBC most likly related to post op . blood transfusion. remains afebrile , will cont iv antibiotics pending repeat cbc poorly controlled dM , will start on her insulin regimen with sling scale coverage CXR ,r/o atelectasis , r/o consolidation DVT prevention ambulate , advance diet renal consult
--- NOTE | 2018-02-01 15:09 | PN ---
Progress Note, Physician Chief Complaint: s/p abdominal hysterectomy post op day one History of Present Illness: general anesthesia and MAIL DELIVERER for post op pain control. - Current Medication List Current Medications: Active Medications Acetaminophen (Tylenol -) 650 mg PO Q4H PRN PRN Reason: PAIN LEVEL 4 - 6 Amlodipine Besylate (Norvasc -) 10 mg PO DAILY [facility] Last Admin: 02/01/18 10:17 Dose: 10 mg Atorvastatin Calcium (Lipitor -) 40 mg PO HS [facility] Last Admin: 01/31/18 22:35 Dose: Not Given Dexamethasone Sodium Phosphate (Decadron Injection -) 4 mg IVPUSH ONCE PRN PRN Reason: NAUSEA AND/OR VOMITING Diphenhydramine HCl (Benadryl Injection -) 12.5 mg IVPUSH ONCE PRN PRN Reason: FOR ITCHING Enoxaparin Sodium (Lovenox -) 40 mg SQ DAILY [facility] Last Admin: 02/01/18 10:00 Dose: 40 mg Hydrochlorothiazide (Hctz -) 50 mg PO DAILY [facility] Last Admin: 02/01/18 10:00 Dose: 50 mg Hydromorphone HCl (Dilaudid Group Director -) 0 mg MAIL DELIVERER MAIL DELIVERER [facility]; Protocol Stop: 02/07/18 16:31 Lactated Ringer's (Lactated Ringers Solution) 1,000 mls @ 125 mls/hr IV ASDIR [facility] Parenteral Electrolytes (Plasma-Lyte 148 -) 1,000 mls @ 125 mls/hr IV ASDIR [facility] Insulin Aspart (Novolog Vial Sliding Scale -) 1 vial SQ ACHS [facility]; Protocol Last Admin: 02/01/18 11:58 Dose: 7 unit Insulin Detemir (Levemir Vial) 52 units SQ 0700,2200 [facility] Lisinopril (Prinivil) 20 mg PO BID [facility] Last Admin: 02/01/18 10:17 Dose: 20 mg Ondansetron HCl (Zofran Injection) 4 mg IVPUSH Q6H PRN PRN Reason: NAUSEA Oxycodone HCl (Roxicodone -) 5 mg PO Q4H PRN PRN Reason: PAIN LEVEL 1-5 Last Admin: 02/01/18 10:15 Dose: 5 mg Oxycodone HCl (Roxicodone -) 10 mg PO Q6H PRN PRN Reason: PAIN LEVEL 7 - 10 Promethazine HCl (Phenergan Injection -) 12.5 mg IVPB Q6H PRN PRN Reason: NAUSEA AND/OR VOMITING - Objective Vital Signs: Vital Signs Temperature 97.9 F 02/01/18 12:57 Pulse Rate 98 H 02/01/18 12:57 Respiratory Rate 24 H 02/01/18 12:57 Blood Pressure 136/67 02/01/18 12:57 O2 Sat by Pulse Oximetry (%) 96 01/31/18 21:00 Constitutional: Yes: Well Nourished Cardiovascular: Yes: WNL Respiratory: Yes: WNL Gastrointestinal: Yes: WNL Labs: CBC, BMP 02/01/18 10:51 02/01/18 06:00 Assessment/Plan Tolerating PO, no nausea or vomiting, MAIL DELIVERER d/c'd no further intervention needed at this time from dept of anesthesiology
[2018-02-01] MEDS: ACETAMINOPHEN 325 MG TABLET (FP) PO PRN ×3 (15:30→23:02)
[2018-02-01] MEDS ORDERED: PCA PUMP KEY 1 EACH EACH ONE (15:52)
--- NOTE | 2018-02-01 15:52 | CONSULT ---
Consult Consult Specialty:: Nephrology Reason for Consultation:: CKD - History of Present Illness Chief Complaint: vaginal bleeding History of Present Illness: Pt is a 47 year old female with pmhx of CKD, uterine fibroid, anemia, DM poorly controlled, HTN, HLD, and CHF who presents to the er with vaqinal bleeding and was admitted for hysterectomy. I was called to evaluate her for elevated creatinine. She has history of CKD. She was actually supposed to see me this week for her renal workup however could not make it secondary to vaginal bleeding. She is s/p hysterectomy. She denies lower ext edema. She denies shortness of breath. She denies dysuria or hematuria. - History Source History Provided By: Patient - Past Medical History Cardio/Vascular: Yes: CHF, HTN Hepatobiliary: Yes: Cholecystitis Renal/: Yes: Renal Inusuff ...LMP: 01/29/18 Endocrine: Yes: Diabetes Mellitus Additional Medical History: diabetic retinopathy - Past Surgical History Past Surgical History: Yes: Amputation (B/L TOE #5), Cholecystectomy - Alcohol/Substance Use Hx Alcohol Use: Yes (occas) - Smoking History Smoking history: Former smoker Have you smoked in the past 12 months: No Aproximately how many cigarettes per day: 10 If you are a former smoker, when did you quit?: 8yrs Home Medications - Allergies Allergies/Adverse Reactions: Allergies Allergy/AdvReac Type Severity Reaction Status Date / Time codeine Allergy Intermediate Nausea Verified 01/29/18 17:30 - Home Medications Home Medications: Ambulatory Orders Insulin Sliding Scale [Novolog Vial Sliding Scale -] 10 units SQ TIDCM 06/11/14 Lisinopril [Zestril] 20 mg PO BID 06/11/14 Amlodipine Besylate [Norvasc -] 10 mg PO DAILY 11/01/17 Atorvastatin Ca [Lipitor] 40 mg PO HS 11/01/17 Acetaminophen [Tylenol Arthritis] 1,300 mg PO PRN PRN 01/29/18 Hydrochlorothiazide [Hctz -] 50 mg PO DAILY 01/29/18 Insulin (Levemir) [Levemir Vial] 52 units SQ BID 01/29/18 Iron 18 mg PO TID 01/29/18 Family Disease History - Family Disease History Family Disease History: Diabetes: Mother Review of Systems - Review of Systems Constitutional: reports: No Symptoms Eyes: reports: No Symptoms HENT: reports: No Symptoms Neck: reports: No Symptoms Cardiovascular: reports: No Symptoms Respiratory: reports: No Symptoms Gastrointestinal: reports: No Symptoms Genitourinary: reports: Other (s/p hysterectomy) Musculoskeletal: reports: No Symptoms Integumentary: reports: No Symptoms Neurological: reports: No Symptoms Endocrine: reports: No Symptoms Physical Exam Vital Signs: Vital Signs Temperature 97.9 F 02/01/18 12:57 Pulse Rate 98 H 02/01/18 12:57 Respiratory Rate 24 H 02/01/18 12:57 Blood Pressure 136/67 02/01/18 12:57 O2 Sat by Pulse Oximetry (%) 96 01/31/18 21:00 Constitutional: Yes: Calm Eyes: Yes: Conjunctiva Clear HENT: Yes: Atraumatic Neck: Yes: Supple Cardiovascular: Yes: S1, S2 Respiratory: Yes: CTA Bilaterally Gastrointestinal: Yes: Soft Renal/: Yes: WNL Musculoskeletal: Yes: WNL Edema: No Neurological: Yes: Oriented Psychiatric: Yes: Oriented Labs: CBC, BMP 02/01/18 10:51 02/01/18 06:00 Laboratory Tests 08/27/15 08/26/17 11/01/17 11:04 07:21 03:19 WBC Hgb 5.4 L* Creatinine 2.3 H Creat Clearance w eGFR Urine Protein 3+ H 11/01/17 11/01/17 11/01/17 03:19 17:00 17:00 WBC Hgb 7.8 L Creatinine 2.1 H Creat Clearance w eGFR 20.64 Urine Protein 11/02/17 02/01/18 02/01/18 06:45 06:00 10:51 WBC 20.7 H Hgb 9.0 L Creatinine 1.9 H 2.8 H Creat Clearance w eGFR Urine Protein Imaging - Results Ultrasound: Report Reviewed Problem List - Problems (1) Anemia Code(s): D64.9 - ANEMIA, UNSPECIFIED Qualifiers: Anemia type: other cause Other causes of anemia: other cause, not classified Qualified Code(s): D64.89 - Other specified anemias (2) CKD (chronic kidney disease) Code(s): N18.9 - CHRONIC KIDNEY DISEASE, UNSPECIFIED (3) Fibroid (bleeding) (uterine) Code(s): D25.9 - LEIOMYOMA OF UTERUS, UNSPECIFIED Qualifiers: Uterine leiomyoma location: submucous Qualified Code(s): D25.0 - Submucous leiomyoma of uterus (4) Type 1 diabetes Code(s): E10.9 - TYPE 1 DIABETES MELLITUS WITHOUT COMPLICATIONS Assessment/Plan Current Medications Generic Name Dose Route Start Last Admin Trade Name Freq PRN Reason Stop Dose Admin Acetaminophen 650 mg 02/01/18 08:14 02/01/18 15:30 Tylenol - PO 650 mg Q4H PRN Administration PAIN LEVEL 4 - 6 Amlodipine Besylate 10 mg 02/01/18 10:00 02/01/18 10:17 Norvasc - PO 10 mg DAILY [facility] Administration Atorvastatin Calcium 40 mg 01/31/18 22:00 01/31/18 22:35 Lipitor - PO Not Given HS [facility] Dexamethasone Sodium Phosphate 4 mg 01/31/18 16:31 Decadron Injection - IVPUSH ONCE PRN NAUSEA AND/OR VOMITING Diphenhydramine HCl 12.5 mg 01/31/18 16:31 Benadryl Injection - IVPUSH ONCE PRN FOR ITCHING Enoxaparin Sodium 40 mg 02/01/18 10:00 02/01/18 10:00 Lovenox - SQ 40 mg DAILY [facility] Administration Hydrochlorothiazide 50 mg 02/01/18 10:00 02/01/18 10:00 Hctz - PO 50 mg DAILY [facility] Administration Hydromorphone HCl 0 mg 01/31/18 16:45 Dilaudid Director Information Security - [employer] 02/07/18 16:31 [employer]ED CIRCUIT DES[employer]ER [facility] Protocol Lactated Ringer's 1,000 mls @ 125 mls/hr 01/31/18 16:45 Lactated Ringers Solution IV ASDIR [facility] Parenteral Electrolytes 1,000 mls @ 125 mls/hr 01/31/18 18:45 Plasma-Lyte 148 - IV ASDIR [facility] Insulin Aspart 1 vial 01/31/18 22:00 02/01/18 11:58 Novolog Vial Sliding Scale - SQ 7 unit ACHS [facility] Administration Protocol Insulin Detemir 52 units 02/01/18 22:00 Levemir Vial SQ 0700,2200 [facility] Lisinopril 20 mg 01/31/18 22:00 02/01/18 10:17 Prinivil PO 20 mg BID MELINDA Administration Ondansetron HCl 4 mg 01/31/18 18:38 Zofran Injection IVPUSH Q6H PRN NAUSEA Oxycodone HCl 5 mg 01/31/18 18:38 02/01/18 10:15 Roxicodone - PO 5 mg Q4H PRN Administration PAIN LEVEL 1-5 Oxycodone HCl 10 mg 02/01/18 08:16 02/01/18 15:30 Roxicodone - PO 10 mg Q6H PRN Administration PAIN LEVEL 7 - 10 Promethazine HCl 12.5 mg 01/31/18 16:31 Phenergan Injection - IVPB Q6H PRN NAUSEA AND/OR VOMITING Impression 1. CKD 2. anemia 3. DM 4. HTN 5. obesity 6. fibroids 7. ovarian cysts 8. diabetic retinopathy 9. s/p hysterectomy Plan - cont to monitor renal function - will have renal function as outpt - rosales d/c'd, pt has not voided yet - can stop fluids - repeat labs in am - will need better glucose control - avoid nsaids, will stop ibuprofen - pt now denies vaginal bleeding - monitor hg - discussed with developmental behavioral physician - will follow Dr Sanchez
[2018-02-01] MEDS: INSULIN (LEVEMIR) 100 UNITS/ML UNITS SQ SCH (21:31)
[2018-02-01] MEDS: ATORVASTATIN CA 40 MG TABLET (FP) PO SCH (21:32)
[2018-02-01] MEDS ORDERED: BISACODYL 10 MG SUPP.RECT PR PRN (21:39)
[2018-02-02] MEDS: oxyCODONE HCL 5 MG TABLET PO PRN ×3 (06:32→19:06)
[2018-02-02] MEDS: ACETAMINOPHEN 325 MG TABLET (FP) PO PRN (06:32)
[2018-02-02] MEDS: INSULIN SLIDING SCALE (NOVOLOG) 1 VIAL SQ SCH ×4 (06:33→21:25)
[2018-02-02] MEDS: BENZOCAINE/MENTH/CETYLPYRD CL 1 EACH LOZENGE MM PRN ×3 (06:35→21:30)
[2018-02-02] MEDS: INSULIN (LEVEMIR) 100 UNITS/ML UNITS SQ SCH ×3 (08:11→21:26)
[2018-02-02 08:39] LABS: MCH 23.6 pg (25.7-33.7); MCHC 32.2 g/dl (32.0-36.0); MEAN CELL VOLUME 73.2 fl (80-96); MEAN PLT VOLUME 6.8 fl (7.5-11.1); PLATELET COUNT 652 K/MM3 (134-434); RBC 3.83 M/mm3 (3.60-5.2); RDW 27.3 % (11.6-15.6); WHITE BLOOD COUNT 11.2 K/mm3 (4.0-10.0)
[2018-02-02] MEDS: ENOXAPARIN NA (PORCINE) 40 MG/0.4 ML DISP.SYRIN SQ SCH (08:59)
[2018-02-02] MEDS: HYDROCHLOROTHIAZIDE 25 MG TABLET (FP) PO SCH (08:59)
[2018-02-02] MEDS: LISINOPRIL 20 MG TABLET (FP) PO SCH ×2 (09:00→21:26)
[2018-02-02] MEDS: amLODIPine BESYLATE 10 MG TABLET (FP) PO SCH (09:00)
[2018-02-02 09:35] LABS: ALBUMIN 2.6 g/dl (3.4-5.0); ALK PHOS 315 U/L (45-117); ANION GAP 10 MMOL/L (8-16); BILIRUBIN,TOTAL 0.4 mg/dL (0.2-1); BLOOD UREA NITROGEN 40 mg/dL (7-18); CALCIUM 8.3 mg/dL (8.5-10.1); CHLORIDE 104 mmol/L (98-107); CO2 22 mmol/L (21-32); CREATININE 2.6 mg/dL (0.55-1.3); GLUCOSE,RANDOM 69 mg/dL (74-106); POTASSIUM 4.6 mmol/L (3.5-5.1); SGOT/AST 977 U/L (15-37); SGPT/ALT 414 U/L (13-61); SODIUM 136 mmol/L (136-145); TOT PROT 6.4 g/dl (6.4-8.2)
[2018-02-02 11:02] LABS: ACANTHOCYTES 1+; ANISOCYTOSIS 2+; MACROCYTOSIS 0; OVALOCYTE 1+; PLATELET ESTIMATE INCREASED; TEAR DROP CELLS 1+
--- NOTE | 2018-02-02 11:08 | PN ---
Progress Note (short form) - Note Progress Note: pod 2 s/p hysterectomy IDDM HTN obesity elevated LFT CRI no c/o passing gas ,ambulating, no chest pain, no SOB, voids ok CBC, BMP 02/02/18 07:00 02/02/18 07:00 Last Vital Signs Temp Pulse Resp BP Pulse Ox 98.8 F 95 H 20 147/69 97 02/02/18 08:45 02/02/18 08:45 02/02/18 08:45 02/02/18 08:45 02/01/18 21:00 abdomen soft, no distension, no cva , BS present , incision dry, clean, healing well no calf tenderness . no edema no vaginal bleeding or discharge POD 2 afebrile , BS well controlled , last BS 69 , will decrease insulin dose to levimir 40 u bid RFT improved elevated LFT will get GI consult .
--- NOTE | 2018-02-02 15:09 | PN ---
Progress Note, Physician History of Present Illness: Pt seen and examined at bedside. She is awake and alert. She denies shortness of breath. She is tolerating diet. - Current Medication List Current Medications: Active Medications Amlodipine Besylate (Norvasc -) 10 mg PO DAILY [facility] Last Admin: 02/02/18 09:00 Dose: 10 mg Atorvastatin Calcium (Lipitor -) 40 mg PO HS [facility] Last Admin: 02/01/18 21:32 Dose: 40 mg Benzocaine/Menthol (Cepacol Lozenge -) 1 each MM Q4H PRN PRN Reason: SORE THROAT Last Admin: 02/02/18 06:35 Dose: 1 each Bisacodyl (Dulcolax Suppository -) 10 mg NM PRN PRN PRN Reason: CONSTIPATION Dexamethasone Sodium Phosphate (Decadron Injection -) 4 mg IVPUSH ONCE PRN PRN Reason: NAUSEA AND/OR VOMITING Diphenhydramine HCl (Benadryl Injection -) 12.5 mg IVPUSH ONCE PRN PRN Reason: FOR ITCHING Docusate Sodium (Colace -) 100 mg PO BID PRN PRN Reason: CONSTIPATION Enoxaparin Sodium (Lovenox -) 40 mg SQ DAILY [facility] Last Admin: 02/02/18 08:59 Dose: 40 mg Hydrochlorothiazide (Hctz -) 50 mg PO DAILY [facility] Last Admin: 02/02/18 08:59 Dose: 50 mg Insulin Aspart (Novolog Vial Sliding Scale -) 1 vial SQ [facility]; Protocol Last Admin: 02/02/18 11:49 Dose: Not Given Insulin Detemir (Levemir Vial) 40 units SQ BID [facility] Last Admin: 02/02/18 09:59 Dose: 40 units Lisinopril (Prinivil) 20 mg PO BID [facility] Last Admin: 02/02/18 09:00 Dose: 20 mg Ondansetron HCl (Zofran Injection) 4 mg IVPUSH Q6H PRN PRN Reason: NAUSEA Oxycodone HCl (Roxicodone -) 5 mg PO Q4H PRN PRN Reason: PAIN LEVEL 1-5 Last Admin: 02/01/18 19:50 Dose: 5 mg Oxycodone HCl (Roxicodone -) 10 mg PO Q6H PRN PRN Reason: PAIN LEVEL 7 - 10 Last Admin: 02/02/18 12:48 Dose: 10 mg Promethazine HCl (Phenergan Injection -) 12.5 mg IVPB Q6H PRN PRN Reason: NAUSEA AND/OR VOMITING - Objective Vital Signs: Vital Signs Temperature 98.8 F 02/02/18 08:45 Pulse Rate 95 H 02/02/18 08:45 Respiratory Rate 20 02/02/18 08:45 Blood Pressure 147/69 02/02/18 08:45 O2 Sat by Pulse Oximetry (%) 97 02/01/18 21:00 Constitutional: Yes: Calm Eyes: Yes: Conjunctiva Clear HENT: Yes: Atraumatic Neck: Yes: Supple Cardiovascular: Yes: S1, S2 Respiratory: Yes: CTA Bilaterally Gastrointestinal: Yes: Soft Genitourinary: Yes: WNL Musculoskeletal: Yes: WNL Edema: No Neurological: Yes: Oriented Psychiatric: Yes: Oriented Labs: CBC, BMP 02/02/18 07:00 02/02/18 07:00 Problem List - Problems (1) Anemia Code(s): D64.9 - ANEMIA, UNSPECIFIED Qualifiers: Anemia type: other cause Other causes of anemia: other cause, not classified Qualified Code(s): D64.89 - Other specified anemias (2) CKD (chronic kidney disease) Code(s): N18.9 - CHRONIC KIDNEY DISEASE, UNSPECIFIED (3) Fibroid (bleeding) (uterine) Code(s): D25.9 - LEIOMYOMA OF UTERUS, UNSPECIFIED Qualifiers: Uterine leiomyoma location: submucous Qualified Code(s): D25.0 - Submucous leiomyoma of uterus (4) Type 1 diabetes Code(s): E10.9 - TYPE 1 DIABETES MELLITUS WITHOUT COMPLICATIONS Assessment/Plan Current Medications Generic Name Dose Route Start Last Admin Trade Name Freq PRN Reason Stop Dose Admin Amlodipine Besylate 10 mg 02/01/18 10:00 02/02/18 09:00 Norvasc - PO 10 mg DAILY MELINDA Administration Atorvastatin Calcium 40 mg 01/31/18 22:00 02/01/18 21:32 Lipitor - PO 40 mg HS MELINDA Administration Benzocaine/Menthol 1 each 02/01/18 16:57 02/02/18 06:35 Cepacol Lozenge - MM 1 each Q4H PRN Administration SORE THROAT Bisacodyl 10 mg 02/01/18 21:39 Dulcolax Suppository - NM PRN PRN CONSTIPATION Dexamethasone Sodium Phosphate 4 mg 01/31/18 16:31 Decadron Injection - IVPUSH ONCE PRN NAUSEA AND/OR VOMITING Diphenhydramine HCl 12.5 mg 01/31/18 16:31 Benadryl Injection - IVPUSH ONCE PRN FOR ITCHING Docusate Sodium 100 mg 02/01/18 21:38 Colace - PO BID PRN CONSTIPATION Enoxaparin Sodium 40 mg 02/01/18 10:00 02/02/18 08:59 Lovenox - SQ 40 mg DAILY MELINDA Administration Hydrochlorothiazide 50 mg 02/02/18 10:00 02/02/18 08:59 Hctz - PO 50 mg DAILY MELINDA Administration Insulin Aspart 1 vial 01/31/18 22:00 02/02/18 11:49 Novolog Vial Sliding Scale - SQ Not Given [facility] Protocol Insulin Detemir 40 units 02/02/18 10:00 02/02/18 09:59 Levemir Vial SQ 40 units BID MELINDA Administration Lisinopril 20 mg 01/31/18 22:00 02/02/18 09:00 Prinivil PO 20 mg BID MELINDA Administration Ondansetron HCl 4 mg 01/31/18 18:38 Zofran Injection IVPUSH Q6H PRN NAUSEA Oxycodone HCl 5 mg 01/31/18 18:38 02/01/18 19:50 Roxicodone - PO 5 mg Q4H PRN Administration PAIN LEVEL 1-5 Oxycodone HCl 10 mg 02/01/18 08:16 02/02/18 12:48 Roxicodone - PO 10 mg Q6H PRN Administration PAIN LEVEL 7 - 10 Promethazine HCl 12.5 mg 01/31/18 16:31 Phenergan Injection - IVPB Q6H PRN NAUSEA AND/OR VOMITING Impression 1. CKD 2. anemia 3. DM 4. HTN 5. obesity 6. fibroids 7. ovarian cysts 8. diabetic retinopathy 9. s/p hysterectomy Plan - renal function slowly improving - cont to monitor BP - pt will follow with me after discharge for renal workup - will need better glucose control - avoid nsaids - pt now denies vaginal bleeding - monitor hg - will follow Dr Sanchez
[2018-02-02] MEDS: ATORVASTATIN CA 40 MG TABLET (FP) PO SCH (21:26)
[2018-02-02] MEDS: DOCUSATE SODIUM 100 MG CAPSULE (FP) PO PRN (21:27)
--- NOTE | 2018-02-02 21:52 | CONSULT ---
Consult Consult Specialty:: Hospital Medicine Referred by:: Dr. Magana Reason for Consultation:: Fever s/p Hysterectomy - History of Present Illness Chief Complaint: Fever, Cough History of Present Illness: This is a 47 y/o woman with a past medical history of HTN, DM, CHF, Fibroid Uterus, CKD, Anemia. s/p abdominal hysterectomy POD #2. Patient is alert, awake and oriented. She reports she felt cold overnight then developed fever. Her WBC from this am 11.2. The patient reports having cramping type pain to incision site. Patient denies dizziness, GUZMAN, SOB, CP, N/V/D, dysuria - History Source History Provided By: Patient, Medical Record Limitations to Obtaining History: No Limitations - Past Medical History Cardio/Vascular: Yes: CHF, HTN Hepatobiliary: Yes: Cholecystitis Renal/: Yes: Renal Inusuff Reproductive: Yes: Fibroids ...LMP: 01/29/18 Heme/Onc: Yes: Anemia Endocrine: Yes: Diabetes Mellitus Additional Medical History: diabetic retinopathy - Past Surgical History Past Surgical History: Yes: Amputation (B/L TOE #5), Cholecystectomy - Alcohol/Substance Use Hx Alcohol Use: Yes (socially- wine) History of Substance Use: reports: None - Smoking History Smoking history: Former smoker Have you smoked in the past 12 months: No Aproximately how many cigarettes per day: 10 If you are a former smoker, when did you quit?: 8yrs - Social History ADL: Independent Place of : [facility] History of Recent Travel: No Home Medications - Allergies Allergies/Adverse Reactions: Allergies Allergy/AdvReac Type Severity Reaction Status Date / Time codeine Allergy Intermediate Nausea Verified 01/29/18 17:30 - Home Medications Home Medications: Ambulatory Orders Insulin Sliding Scale [Novolog Vial Sliding Scale -] 10 units SQ TIDCM 06/11/14 Lisinopril [Zestril] 20 mg PO BID 06/11/14 Amlodipine Besylate [Norvasc -] 10 mg PO DAILY 11/01/17 Atorvastatin Ca [Lipitor] 40 mg PO HS 11/01/17 Acetaminophen [Tylenol Arthritis] 1,300 mg PO PRN PRN 01/29/18 Hydrochlorothiazide [Hctz -] 50 mg PO DAILY 01/29/18 Insulin (Levemir) [Levemir Vial] 52 units SQ BID 01/29/18 Iron 18 mg PO TID 01/29/18 Family Disease History - Family Disease History Family Disease History: Diabetes: Mother Other Family History: Maternal Aunts: Breast ca, Ovarian Ca, Pancreatic Ca Review of Systems - Review of Systems Constitutional: reports: Fever Eyes: reports: No Symptoms HENT: reports: Throat Pain Neck: reports: No Symptoms Cardiovascular: reports: No Symptoms Respiratory: reports: Cough Gastrointestinal: reports: Abdominal Pain Genitourinary: reports: No Symptoms Breasts: reports: No Symptoms Reported Musculoskeletal: reports: No Symptoms Integumentary: reports: No Symptoms Neurological: reports: No Symptoms Endocrine: reports: No Symptoms Hematology/Lymphatic: reports: No Symptoms Physical Exam Vital Signs: Vital Signs Temperature 99.2 F 02/02/18 16:44 Pulse Rate 94 H 02/02/18 16:44 Respiratory Rate 20 02/02/18 16:44 Blood Pressure 144/72 02/02/18 16:44 O2 Sat by Pulse Oximetry (%) 97 02/01/18 21:00 Constitutional: Yes: Well Nourished, No Distress, Calm Eyes: Yes: WNL, Conjunctiva Clear, EOM Intact, PERRL HENT: Yes: WNL, Atraumatic, Normocephalic Neck: Yes: WNL, Supple, Trachea Midline Cardiovascular: Yes: Regular Rate and Rhythm, S1, S2 Respiratory: Yes: WNL, Regular, CTA Bilaterally Gastrointestinal: Yes: Normal Bowel Sounds, Abdomen, Obese, Tenderness (TTP), Other (surgical site, C/D/I) Renal/: Yes: WNL Breast(s): Yes: WNL Musculoskeletal: Yes: WNL Extremities: Yes: WNL Edema: No Peripheral Pulses WNL: Yes Neurological: Yes: WNL, Alert, Oriented, Cran Nerves II-XII Intact ...Motor Strength: WNL Psychiatric: Yes: WNL, Alert, Oriented Labs: CBC, BMP 02/02/18 07:00 02/02/18 07:00 Laboratory Results - last 24 hr 02/02/18 02/02/18 02/02/18 01:48 06:17 07:00 WBC 11.2 H RBC 3.83 Hgb 9.0 L Hct 28.0 L MCV 73.2 L MCH 23.6 L MCHC 32.2 RDW 27.3 H Plt Count 652 H MPV 6.8 L Absolute Neuts (auto) 8.1 H Neutrophils % No Result Required. Neutrophils % (Manual) 80.0 Band Neutrophils % 0.0 Lymphocytes % No Result Required. Lymphocytes % (Manual) 5.0 L D Monocytes % Monocytes % (Manual) 9 Eosinophils % Eosinophils % (Manual) 2.0 D Basophils % Basophils % (Manual) 1.0 D Myelocytes % (Man) 0 Promyelocytes % (Man) 0 Blast Cells % (Manual) 0 Nucleated RBC % 0 Metamyelocytes 0 Hypochromia 2+ Platelet Estimate Increased Platelet Comment Present Polychromasia 2+ Poikilocytosis 1+ Anisocytosis 2+ Microcytosis 2+ Macrocytosis 0 Spherocytes 1+ Tear Drop Cells 1+ Ovalocytes 1+ Acanthocytes (Spur) 1+ Sodium Potassium Chloride Carbon Dioxide Anion Gap BUN Creatinine Creat Clearance w eGFR POC Glucometer 104 87 Random Glucose Calcium Total Bilirubin AST ALT Alkaline Phosphatase Total Protein Albumin 02/02/18 02/02/18 02/02/18 07:00 08:11 11:49 WBC RBC Hgb Hct MCV MCH MCHC RDW Plt Count MPV Absolute Neuts (auto) Neutrophils % Neutrophils % (Manual) Band Neutrophils % Lymphocytes % Lymphocytes % (Manual) Monocytes % Monocytes % (Manual) Eosinophils % Eosinophils % (Manual) Basophils % Basophils % (Manual) Myelocytes % (Man) Promyelocytes % (Man) Blast Cells % (Manual) Nucleated RBC % Metamyelocytes Hypochromia Platelet Estimate Platelet Comment Polychromasia Poikilocytosis Anisocytosis Microcytosis Macrocytosis Spherocytes Tear Drop Cells Ovalocytes Acanthocytes (Spur) Sodium 136 Potassium 4.6 Chloride 104 Carbon Dioxide 22 Anion Gap 10 BUN 40 H Creatinine 2.6 H Creat Clearance w eGFR 19.73 POC Glucometer 81 124 Random Glucose 69 L Calcium 8.3 L Total Bilirubin 0.4 AST 977 H ALT 414 H Alkaline Phosphatase 315 H Total Protein 6.4 Albumin 2.6 L 02/02/18 02/02/18 02/02/18 16:11 20:30 21:53 WBC 13.4 H RBC 3.85 Hgb 9.3 L Hct 28.3 L MCV 73.5 L MCH 24.1 L MCHC 32.7 RDW 27.6 H Plt Count 660 H MPV 6.8 L Absolute Neuts (auto) 9.5 H Neutrophils % 71.3 Neutrophils % (Manual) Band Neutrophils % Lymphocytes % 20.9 D Lymphocytes % (Manual) Monocytes % 4.9 Monocytes % (Manual) Eosinophils % 1.9 D Eosinophils % (Manual) Basophils % 1.0 Basophils % (Manual) Myelocytes % (Man) Promyelocytes % (Man) Blast Cells % (Manual) Nucleated RBC % 0 Metamyelocytes Hypochromia Platelet Estimate Platelet Comment Polychromasia Poikilocytosis Anisocytosis Microcytosis Macrocytosis Spherocytes Tear Drop Cells Ovalocytes Acanthocytes (Spur) Sodium Potassium Chloride Carbon Dioxide Anion Gap BUN Creatinine Creat Clearance w eGFR POC Glucometer 143 147 Random Glucose Calcium Total Bilirubin AST ALT Alkaline Phosphatase Total Protein Albumin Last Vital Signs Temp Pulse Resp BP Pulse Ox 101.7 F H 109 H 18 147/64 97 02/02/18 21:00 02/02/18 21:00 02/02/18 21:00 02/02/18 21:00 02/02/18 21:00 Intake & Output 01/30/18 01/31/18 02/01/18 02/02/18 23:59 23:59 23:59 23:59 Intake Total 2400 1750 Output Total 1000 1650 Balance 1400 100 Weight 106.594 kg Current Medications Generic Name Dose Route Start Last Admin Trade Name Freq PRN Reason Stop Dose Admin Amlodipine Besylate 10 mg 02/01/18 10:00 02/02/18 09:00 Norvasc - PO 10 mg DAILY MELINDA Administration Atorvastatin Calcium 40 mg 01/31/18 22:00 02/02/18 21:26 Lipitor - PO 40 mg HS MELINDA Administration Benzocaine/Menthol 1 each 02/01/18 16:57 02/02/18 21:30 Cepacol Lozenge - MM 1 each Q4H PRN Administration SORE THROAT Bisacodyl 10 mg 02/01/18 21:39 Dulcolax Suppository - OR PRN PRN CONSTIPATION Dexamethasone Sodium Phosphate 4 mg 01/31/18 16:31 Decadron Injection - IVPUSH ONCE PRN NAUSEA AND/OR VOMITING Diphenhydramine HCl 12.5 mg 01/31/18 16:31 Benadryl Injection - IVPUSH ONCE PRN FOR ITCHING Docusate Sodium 100 mg 02/01/18 21:38 02/02/18 21:27 Colace - PO 100 mg BID PRN Administration CONSTIPATION Enoxaparin Sodium 40 mg 02/01/18 10:00 02/02/18 08:59 Lovenox - SQ 40 mg DAILY MELINDA Administration Hydrochlorothiazide 50 mg 02/02/18 10:00 02/02/18 08:59 Hctz - PO 50 mg DAILY MELINDA Administration Insulin Aspart 1 vial 01/31/18 22:00 02/02/18 21:25 Novolog Vial Sliding Scale - SQ Not Given ACHS [facility] Protocol Insulin Detemir 40 units 02/02/18 10:00 02/02/18 21:26 Levemir Vial SQ 40 units BID [facility] Administration Lisinopril 20 mg 01/31/18 22:00 02/02/18 21:26 Prinivil PO 20 mg BID [facility] Administration Ondansetron HCl 4 mg 01/31/18 18:38 Zofran Injection IVPUSH Q6H PRN NAUSEA Oxycodone HCl 5 mg 01/31/18 18:38 02/01/18 19:50 Roxicodone - PO 5 mg Q4H PRN Administration PAIN LEVEL 1-5 Oxycodone HCl 10 mg 02/01/18 08:16 02/02/18 19:06 Roxicodone - PO 10 mg Q6H PRN Administration PAIN LEVEL 7 - 10 Promethazine HCl 12.5 mg 01/31/18 16:31 Phenergan Injection - IVPB Q6H PRN NAUSEA AND/OR VOMITING Imaging - Results Chest X-ray: Report Reviewed Ultrasound: Image Reviewed Problem List - Problems (1) Fever Code(s): R50.9 - FEVER, UNSPECIFIED (2) S/P abdominal hysterectomy Code(s): Z90.710 - ACQUIRED ABSENCE OF BOTH CERVIX AND UTERUS (3) Transaminitis Code(s): R74.0 - NONSPEC ELEV OF LEVELS OF TRANSAMNS & LACTIC ACID DEHYDRGNSE (4) CKD (chronic kidney disease) Code(s): N18.9 - CHRONIC KIDNEY DISEASE, UNSPECIFIED (5) Anemia Code(s): D64.9 - ANEMIA, UNSPECIFIED Qualifiers: Anemia type: other cause Other causes of anemia: other cause, not classified Qualified Code(s): D64.89 - Other specified anemias (6) Fibroid (bleeding) (uterine) Code(s): D25.9 - LEIOMYOMA OF UTERUS, UNSPECIFIED Qualifiers: Uterine leiomyoma location: submucous Qualified Code(s): D25.0 - Submucous leiomyoma of uterus (7) Type 1 diabetes Code(s): E10.9 - TYPE 1 DIABETES MELLITUS WITHOUT COMPLICATIONS Assessment/Plan This is a 47 y/o woman with a PMHx of: HTN, DM, CKD, Anemia, Fibroid Uterus. s/ p Abdominal Hysterectomy. POD #2 Problems: 1. s/p Abdominal Hysterectomy 2. Transaminitis 3. Fever 4. CKD 5. HTN 6. DM 7. Anemia Plan: UA Urine Culture Blood Cultures-pending Icepacks, Cooling blanket to reduce fever Lactic Acid Hepatitis A,B Panel Avoid Hepatoxic Agents Monitor CBC, CMP Will hold off on ABX for now Addendum Added on Acetaminophen level, PT/INR, Hold Statin Consider Mucomyst if Acetaminophen level is high Will start 1/2NS@100ml x 1L Visit type - Emergency Visit Emergency Visit: No - New Patient This patient is new to me today: Yes Date on this admission: 02/03/18 - Critical Care Critical Care patient: No
[2018-02-02 21:56] LABS: EOS % 1.9 % (0-4.5); HEMATOCRIT 28.3 % (32.4-45.2); HEMOGLOBIN 9.3 GM/dL (10.7-15.3); LYMPH % 20.9 % (8-40); MCH 24.1 pg (25.7-33.7); MCHC 32.7 g/dl (32.0-36.0); MEAN CELL VOLUME 73.5 fl (80-96); MEAN PLT VOLUME 6.8 fl (7.5-11.1); MONO % 4.9 % (3.8-10.2); NEUT % 71.3 % (42.8-82.8); PLATELET COUNT 660 K/MM3 (134-434); RBC 3.85 M/mm3 (3.60-5.2); RDW 27.6 % (11.6-15.6); WHITE BLOOD COUNT 13.4 K/mm3 (4.0-10.0)
[2018-02-02 22:55] LABS: URINE APPEARANCE SLCLOUDY; URINE BILIRUBIN NEGATIVE (<2.0 mg/dL); URINE COLOR LTYELLOW; URINE GLUCOSE (UA) NEGATIVE (NEGATIVE); URINE KETONE NEGATIVE (NEGATIVE); URINE LEUK ESTERASE NEGATIVE (NEGATIVE); URINE NITRITE NEGATIVE (NEGATIVE); URINE PROTEIN 2+ (NEGATIVE); URINE UROBILINOGEN NEGATIVE mg/dL (0.2-1.0)
[2018-02-02 23:16] LABS: EPI CELLS RARE /HPF (FEW); URINE BACTERIA RARE /hpf (NONE SEEN); URINE MUCUS RARE
[2018-02-03] MEDS: oxyCODONE HCL 5 MG TABLET PO PRN (01:48)
[2018-02-03] MEDS: diphenhydrAMINE HCL 25 MG CAPSULE (FP) PO PRN (06:04)
[2018-02-03] MEDS: INSULIN SLIDING SCALE (NOVOLOG) 1 VIAL SQ SCH ×4 (07:01→21:22)
[2018-02-03] MEDS ORDERED: INSULIN (LEVEMIR) 100 UNITS/ML UNITS SQ ONE (07:08)
[2018-02-03] MEDS ORDERED: SODIUM CHLORIDE 0.45% 1,000 ML IV SCH (07:45)
[2018-02-03] MEDS: HYDROmorphone HCL 2 MG TABLET PO PRN ×3 (08:08→18:52)
[2018-02-03 08:38] LABS: HEMATOCRIT 30.4 % (32.4-45.2); HEMOGLOBIN 9.2 GM/dL (10.7-15.3); MCH 22.3 pg (25.7-33.7); MCHC 30.2 g/dl (32.0-36.0); MEAN CELL VOLUME 73.9 fl (80-96); PLATELET COUNT 672 K/MM3 (134-434); RBC 4.12 M/mm3 (3.60-5.2); WHITE BLOOD COUNT 13.5 K/mm3 (4.0-10.0)
[2018-02-03 08:51] LABS: INR 1.09 (0.83-1.09); PROTHROMBIN TIME (PATIENT) 12.9 SEC (9.7-13.0)
[2018-02-03 09:19] LABS: ALBUMIN 2.7 g/dl (3.4-5.0); ALK PHOS 366 U/L (45-117); ANION GAP 11 MMOL/L (8-16); BILIRUBIN,TOTAL 0.3 mg/dL (0.2-1); BLOOD UREA NITROGEN 34 mg/dL (7-18); CALCIUM 8.4 mg/dL (8.5-10.1); CHLORIDE 101 mmol/L (98-107); CO2 22 mmol/L (21-32); CREATININE 2.5 mg/dL (0.55-1.3); GLUCOSE,RANDOM 62 mg/dL (74-106); POTASSIUM 4.5 mmol/L (3.5-5.1); SGOT/AST 331 U/L (15-37); SGPT/ALT 239 U/L (13-61); SODIUM 133 mmol/L (136-145)
[2018-02-03] MEDS: HYDROCHLOROTHIAZIDE 25 MG TABLET (FP) PO SCH (09:46)
[2018-02-03] MEDS: INSULIN (LEVEMIR) 100 UNITS/ML UNITS SQ SCH ×2 (09:46→21:21)
[2018-02-03] MEDS: amLODIPine BESYLATE 10 MG TABLET (FP) PO SCH (09:46)
[2018-02-03] MEDS: LISINOPRIL 20 MG TABLET (FP) PO SCH ×2 (09:46→21:20)
[2018-02-03] MEDS: ENOXAPARIN NA (PORCINE) 40 MG/0.4 ML DISP.SYRIN SQ SCH (09:46)
--- NOTE | 2018-02-03 13:02 | PN ---
Progress Note, Physician Chief Complaint: Feels well, no cough, no fever, no chills, no dysuria, + flatus, tolerating PO, ambulated - Current Medication List Current Medications: Active Medications Amlodipine Besylate (Norvasc -) 10 mg PO DAILY [facility] Last Admin: 02/03/18 09:46 Dose: 10 mg Benzocaine/Menthol (Cepacol Lozenge -) 1 each MM Q4H PRN PRN Reason: SORE THROAT Last Admin: 02/02/18 21:30 Dose: 1 each Bisacodyl (Dulcolax Suppository -) 10 mg [place] PRN PRN PRN Reason: CONSTIPATION Dexamethasone Sodium Phosphate (Decadron Injection -) 4 mg IVPUSH ONCE PRN PRN Reason: NAUSEA AND/OR VOMITING Diphenhydramine HCl (Benadryl Injection -) 12.5 mg IVPUSH ONCE PRN PRN Reason: FOR ITCHING Diphenhydramine HCl (Benadryl -) 25 mg PO Q6H PRN PRN Reason: ITCHING Last Admin: 02/03/18 06:04 Dose: 25 mg Docusate Sodium (Colace -) 100 mg PO BID PRN PRN Reason: CONSTIPATION Last Admin: 02/02/18 21:27 Dose: 100 mg Enoxaparin Sodium (Lovenox -) 40 mg SQ DAILY [facility] Last Admin: 02/03/18 09:46 Dose: 40 mg Hydrochlorothiazide (Hctz -) 50 mg PO DAILY [facility] Last Admin: 02/03/18 09:46 Dose: 50 mg Hydromorphone HCl (Dilaudid -) 4 mg PO Q4H PRN PRN Reason: PAIN SCALE 4-10 Last Admin: 02/03/18 08:08 Dose: 4 mg Sodium Chloride (1/2 Normal Saline) 1,000 mls @ 100 mls/hr IV ASDIR [facility] Last Admin: 02/03/18 08:10 Dose: 100 mls/hr Insulin Aspart (Novolog Vial Sliding Scale -) 1 vial SQ ACHS [facility]; Protocol Last Admin: 02/03/18 11:46 Dose: 5 unit Insulin Detemir (Levemir Vial) 40 units SQ BID [facility] Last Admin: 02/03/18 09:46 Dose: 40 units Lisinopril (Prinivil) 20 mg PO BID [facility] Last Admin: 02/03/18 09:46 Dose: 20 mg Ondansetron HCl (Zofran Injection) 4 mg IVPUSH Q6H PRN PRN Reason: NAUSEA Promethazine HCl (Phenergan Injection -) 12.5 mg IVPB Q6H PRN PRN Reason: NAUSEA AND/OR VOMITING - Objective Vital Signs: Vital Signs Temperature 99.3 F 02/03/18 08:50 Pulse Rate 95 H 02/03/18 08:50 Respiratory Rate 20 02/03/18 08:50 Blood Pressure 143/70 02/03/18 08:50 O2 Sat by Pulse Oximetry (%) 97 02/02/18 21:00 Constitutional: Yes: Well Nourished, No Distress, Calm Eyes: Yes: WNL, Conjunctiva Clear, EOM Intact HENT: Yes: WNL, Atraumatic, Normocephalic Neck: Yes: WNL, Supple, Trachea Midline Cardiovascular: Yes: WNL, Regular Rate and Rhythm Respiratory: Yes: WNL, Regular, CTA Bilaterally Gastrointestinal: Yes: WNL, Normal Bowel Sounds, Soft Genitourinary: Yes: Urethral Discharge Musculoskeletal: Yes: WNL Extremities: Yes: WNL Edema: No Peripheral Pulses WNL: Yes (negative Homman's sign) Integumentary: Yes: WNL Wound/Incision: Yes: Clean/Dry, Well Approximated ...Motor Strength: WNL Psychiatric: Yes: WNL, Alert, Oriented Labs: CBC, BMP 02/03/18 08:00 02/03/18 08:00 INR, PTT INR 1.09 (0.83-1.09) 02/03/18 08:00 Assessment/Plan 47yo D# 3 s/p [facility] had fever to 101.7F 02/02/18, since than afebrile No obvious source of fever however multiple medical problems Currently elevated LFTs Will follow cultures, hepatitis panel and LFTs trend encourage ambulation and DVT prophylaxis
--- NOTE | 2018-02-03 15:12 | PN ---
Physical Exam: SUBJECTIVE: Patient seen and examined, denies any fevers, chills, nausea, vomiting, urinary symptoms. Reports some pain around surgical site and not having moved her bowels yet, but passing gas and tolerating diet well. Occ cough since surgery but improved from admission. OBJECTIVE: Vital Signs Period Temp Pulse Resp BP Sys/Cooper Pulse Ox Last 24 Hr 98.6 F-101.7 F 94-109 18-20 138-148/64-73 97 GENERAL: The patient is awake, alert, and fully oriented, in no acute distress. HEAD: Normal with no signs of trauma. EYES: PERRL, extraocular movements intact, sclera anicteric, conjunctiva clear. No ptosis. ENT: Ears normal, nares patent, oropharynx clear without exudates, moist mucous membranes. NECK: Trachea midline, full range of motion, supple. No JVD visualized LUNGS: Breath sounds equal, clear to auscultation bilaterally, no wheezes, no crackles, no accessory muscle use. HEART: Regular rate and rhythm, S1, S2 ABDOMEN: soft, obese, lower abdominal incision with clean dressing, no bleed or discharge noted. mild trenderness around incision site, otherwise NT throughout , neg Bustamante's sign, no voluntary or involuntary guarding or rigidity, positive bowel sounds, no CVA tenderness. EXTREMITIES: 2+ pulses, warm, well-perfused, no edema. NEUROLOGICAL: Cranial nerves II through XII grossly intact. Normal speech, gait not observed. PSYCH: Normal mood, normal affect. SKIN: Warm, dry, normal turgor, no rashes or lesions noted Laboratory Results - last 24 hr 02/02/18 02/02/18 02/02/18 16:11 20:30 21:53 WBC 13.4 H RBC 3.85 Hgb 9.3 L Hct 28.3 L MCV 73.5 L MCH 24.1 L MCHC 32.7 RDW 27.6 H Plt Count 660 H MPV 6.8 L Absolute Neuts (auto) 9.5 H Neutrophils % 71.3 Lymphocytes % 20.9 D Monocytes % 4.9 Eosinophils % 1.9 D Basophils % 1.0 Nucleated RBC % 0 PT with INR INR Sodium Potassium Chloride Carbon Dioxide Anion Gap BUN Creatinine Creat Clearance w eGFR POC Glucometer 143 147 Random Glucose Lactic Acid Calcium Total Bilirubin AST ALT Alkaline Phosphatase Total Protein Albumin Urine Color Urine Appearance Urine pH Ur Specific [place] Urine Protein Urine Glucose (UA) Urine Ketones Urine Blood Urine Nitrite Urine Bilirubin Urine Urobilinogen Ur Leukocyte Esterase Urine WBC (Auto) Urine RBC (Auto) Ur Epithelial Cells Urine Bacteria Urine Mucus Acetaminophen 02/02/18 02/03/18 02/03/18 22:00 02:20 06:06 WBC RBC Hgb Hct MCV MCH MCHC RDW Plt Count MPV Absolute Neuts (auto) Neutrophils % Lymphocytes % Monocytes % Eosinophils % Basophils % Nucleated RBC % PT with INR INR Sodium Potassium Chloride Carbon Dioxide Anion Gap BUN Creatinine Creat Clearance w eGFR POC Glucometer 99 Random Glucose Lactic Acid 1.0 Calcium Total Bilirubin AST ALT Alkaline Phosphatase Total Protein Albumin Urine Color Ltyellow Urine Appearance Slcloudy Urine pH 5.0 Ur Specific [place] 1.011 Urine Protein 2+ H Urine Glucose (UA) Negative Urine Ketones Negative Urine Blood 1+ H Urine Nitrite Negative Urine Bilirubin Negative Urine Urobilinogen Negative Ur Leukocyte Esterase Negative Urine WBC (Auto) 1 Urine RBC (Auto) 1 Ur Epithelial Cells Rare Urine Bacteria Rare Urine Mucus Rare Acetaminophen 02/03/18 02/03/18 02/03/18 08:00 08:00 08:00 WBC 13.5 H RBC 4.12 Hgb 9.2 L Hct 30.4 L MCV 73.9 L MCH 22.3 L MCHC 30.2 L RDW 28.0 H Plt Count 672 H MPV 7.0 L Absolute Neuts (auto) Neutrophils % Lymphocytes % Monocytes % Eosinophils % Basophils % Nucleated RBC % PT with INR INR Sodium 133 L Potassium 4.5 Chloride 101 Carbon Dioxide 22 Anion Gap 11 BUN 34 H Creatinine 2.5 H Creat Clearance w eGFR 20.64 POC Glucometer Random Glucose 62 L Lactic Acid Calcium 8.4 L Total Bilirubin 0.3 AST 331 H ALT 239 H Alkaline Phosphatase 366 H Total Protein 7.0 Albumin 2.7 L Urine Color Urine Appearance Urine pH Ur Specific [place] Urine Protein Urine Glucose (UA) Urine Ketones Urine Blood Urine Nitrite Urine Bilirubin Urine Urobilinogen Ur Leukocyte Esterase Urine WBC (Auto) Urine RBC (Auto) Ur Epithelial Cells Urine Bacteria Urine Mucus Acetaminophen < 2.0 L 02/03/18 02/03/18 08:00 11:35 WBC RBC Hgb Hct MCV MCH MCHC RDW Plt Count MPV Absolute Neuts (auto) Neutrophils % Lymphocytes % Monocytes % Eosinophils % Basophils % Nucleated RBC % PT with INR 12.90 INR 1.09 Sodium Potassium Chloride Carbon Dioxide Anion Gap BUN Creatinine Creat Clearance w eGFR POC Glucometer 160 Random Glucose Lactic Acid Calcium Total Bilirubin AST ALT Alkaline Phosphatase Total Protein Albumin Urine Color Urine Appearance Urine pH Ur Specific [place] Urine Protein Urine Glucose (UA) Urine Ketones Urine Blood Urine Nitrite Urine Bilirubin Urine Urobilinogen Ur Leukocyte Esterase Urine WBC (Auto) Urine RBC (Auto) Ur Epithelial Cells Urine Bacteria Urine Mucus Acetaminophen Active Medications Generic Name Dose Route Start Last Admin Trade Name Freq PRN Reason Stop Dose Admin Amlodipine Besylate 10 mg 02/01/18 10:00 02/03/18 09:46 Norvasc - PO 10 mg DAILY MELINDA Administration Benzocaine/Menthol 1 each 02/01/18 16:57 02/02/18 21:30 Cepacol Lozenge - MM 1 each Q4H PRN Administration SORE THROAT Bisacodyl 10 mg 02/01/18 21:39 Dulcolax Suppository - SD PRN PRN CONSTIPATION Dexamethasone Sodium Phosphate 4 mg 01/31/18 16:31 Decadron Injection - IVPUSH ONCE PRN NAUSEA AND/OR VOMITING Diphenhydramine HCl 12.5 mg 01/31/18 16:31 Benadryl Injection - IVPUSH ONCE PRN FOR ITCHING Diphenhydramine HCl 25 mg 02/03/18 05:57 02/03/18 06:04 Benadryl - PO 25 mg Q6H PRN Administration ITCHING Docusate Sodium 100 mg 02/01/18 21:38 02/02/18 21:27 Colace - PO 100 mg BID PRN Administration CONSTIPATION Enoxaparin Sodium 40 mg 02/01/18 10:00 02/03/18 09:46 Lovenox - SQ 40 mg DAILY MELINDA Administration Hydrochlorothiazide 50 mg 02/02/18 10:00 02/03/18 09:46 Hctz - PO 50 mg DAILY MELINDA Administration Hydromorphone HCl 4 mg 02/03/18 05:58 02/03/18 13:34 Dilaudid - PO 4 mg Q4H PRN Administration PAIN SCALE 4-10 Insulin Aspart 1 vial 01/31/18 22:00 02/03/18 11:46 Novolog Vial Sliding Scale - SQ 5 unit ACHS MELINDA Administration Protocol Insulin Detemir 40 units 02/02/18 10:00 12/09/18 09:46 Levemir Vial SQ 40 units BID MELINDA Administration Lisinopril 20 mg 01/31/18 22:00 02/03/18 09:46 Prinivil PO 20 mg BID MELINDA Administration Ondansetron HCl 4 mg 01/31/18 18:38 Zofran Injection IVPUSH Q6H PRN NAUSEA Promethazine HCl 12.5 mg 01/31/18 16:31 Phenergan Injection - IVPB Q6H PRN NAUSEA AND/OR VOMITING Home Medications Medication Instructions Recorded Insulin Sliding Scale [Novolog 10 units SQ TIDCM 06/11/14 Vial Sliding Scale -] Lisinopril [Zestril] 20 mg PO BID 06/11/14 Amlodipine Besylate [Norvasc -] 10 mg PO DAILY 11/01/17 Atorvastatin Ca [Lipitor] 40 mg PO HS 11/01/17 Acetaminophen [Tylenol Arthritis] 1,300 mg PO PRN PRN 01/29/18 Hydrochlorothiazide [Hctz -] 50 mg PO DAILY 01/29/18 Insulin (Levemir) [Levemir Vial] 52 units SQ BID 01/29/18 Iron 18 mg PO TID 01/29/18 CXR and abdominal US results reviewed ASSESSMENT/PLAN: 47 yof with PMhx of IDDM, HTN, morbid obesity, uterine fibroids, ?CHF, anemia, CKD stage III (baseline cr around 2) admitted for elective hysterectomy, post operative course complicated by fevers and abnormal LFTs. -POD #3 Hysterectomy for uterine fibroids -Abnormal LFTs, suspect from anesthesia/intra-op hemodynamic changes (SBP 100s- 140s, ?relative hypotension) (LFTs normal in 12/2017) -Fever, suspect post operative atelectasis (CXR with poor effort) -IDDM poorly controlled (A1c 11 in 12/2017) -CKD stage II-III (baseline cr around 2) -Essential HTN -Anemia s/p PRBC tranfusion (?3 units) -Morbid obesity -?CHF (reports remove history 7 years ago) Plan: LFTs improved, continue to trend. Avoid hepatotoxins. Abdominal US noted. Follow up hep panel. Hold statin. Taper dilaudid and minimize opioids. Follow up GI input. CXR, u/a noted. Encourage incentive spirometry and ambulation. Monitor for new fevers. Hold off on abx for now. Patient counseled on home Blood sugar monitoring. Agree with lower dose of levemir, ISS and titrate up as needed. Renal input appreciated. Avoid nephrotoxins, NSAIDs. Lisinopril/HCTZ. Renal function overall stable. Tolerating diet, will d/c IVF. H/h stable. DVTPPx per postal superintendent. Will continue to follow up. Thank you for the consult. Visit type - Emergency Visit Emergency Visit: No - New Patient This patient is new to me today: Yes Date on this admission: 02/03/18 - Critical Care Critical Care patient: No - Discharge Referral Referred to [facility] Med P.C.: No
--- NOTE | 2018-02-03 15:30 | PN ---
Progress Note, Physician History of Present Illness: Pt seen and examined at bedside. She is awake and alert. She denies shortness of breath. She had fever last night. - Current Medication List Current Medications: Active Medications Amlodipine Besylate (Norvasc -) 10 mg PO DAILY [facility] Last Admin: 02/03/18 09:46 Dose: 10 mg Benzocaine/Menthol (Cepacol Lozenge -) 1 each MM Q4H PRN PRN Reason: SORE THROAT Last Admin: 02/02/18 21:30 Dose: 1 each Bisacodyl (Dulcolax Suppository -) 10 mg [place] PRN PRN PRN Reason: CONSTIPATION Dexamethasone Sodium Phosphate (Decadron Injection -) 4 mg IVPUSH ONCE PRN PRN Reason: NAUSEA AND/OR VOMITING Diphenhydramine HCl (Benadryl Injection -) 12.5 mg IVPUSH ONCE PRN PRN Reason: FOR ITCHING Diphenhydramine HCl (Benadryl -) 25 mg PO Q6H PRN PRN Reason: ITCHING Last Admin: 02/03/18 06:04 Dose: 25 mg Docusate Sodium (Colace -) 100 mg PO BID PRN PRN Reason: CONSTIPATION Last Admin: 02/02/18 21:27 Dose: 100 mg Enoxaparin Sodium (Lovenox -) 40 mg SQ DAILY [facility] Last Admin: 02/03/18 09:46 Dose: 40 mg Hydrochlorothiazide (Hctz -) 50 mg PO DAILY [facility] Last Admin: 02/03/18 09:46 Dose: 50 mg Hydromorphone HCl (Dilaudid -) 4 mg PO Q4H PRN PRN Reason: PAIN SCALE 4-10 Last Admin: 02/03/18 13:34 Dose: 4 mg Insulin Aspart (Novolog Vial Sliding Scale -) 1 vial SQ [facility]; Protocol Last Admin: 02/03/18 11:46 Dose: 5 unit Insulin Detemir (Levemir Vial) 40 units SQ BID [facility] Last Admin: 02/03/18 09:46 Dose: 40 units Lisinopril (Prinivil) 20 mg PO BID [facility] Last Admin: 02/03/18 09:46 Dose: 20 mg Ondansetron HCl (Zofran Injection) 4 mg IVPUSH Q6H PRN PRN Reason: NAUSEA Promethazine HCl (Phenergan Injection -) 12.5 mg IVPB Q6H PRN PRN Reason: NAUSEA AND/OR VOMITING - Objective Vital Signs: Vital Signs Temperature 99.8 F H 02/03/18 13:30 Pulse Rate 94 H 02/03/18 13:30 Respiratory Rate 20 02/03/18 13:30 Blood Pressure 142/73 02/03/18 13:30 O2 Sat by Pulse Oximetry (%) 97 02/02/18 21:00 Constitutional: Yes: Calm Eyes: Yes: Conjunctiva Clear HENT: Yes: Atraumatic Neck: Yes: Supple Cardiovascular: Yes: S1, S2 Respiratory: Yes: CTA Bilaterally Gastrointestinal: Yes: Soft Musculoskeletal: Yes: WNL Edema: LLE: Trace, RLE: Trace Neurological: Yes: Oriented Psychiatric: Yes: Oriented Labs: CBC, BMP 02/03/18 08:00 02/03/18 08:00 INR, PTT INR 1.09 (0.83-1.09) 02/03/18 08:00 Problem List - Problems (1) Anemia Code(s): D64.9 - ANEMIA, UNSPECIFIED Qualifiers: Qualified Code(s): D64.89 - Other specified anemias (2) CKD (chronic kidney disease) Code(s): N18.9 - CHRONIC KIDNEY DISEASE, UNSPECIFIED (3) Fibroid (bleeding) (uterine) Code(s): D25.9 - LEIOMYOMA OF UTERUS, UNSPECIFIED Qualifiers: Qualified Code(s): D25.0 - Submucous leiomyoma of uterus (4) Type 1 diabetes Code(s): E10.9 - TYPE 1 DIABETES MELLITUS WITHOUT COMPLICATIONS Assessment/Plan Current Medications Generic Name Dose Route Start Last Admin Trade Name Freq PRN Reason Stop Dose Admin Amlodipine Besylate 10 mg 02/01/18 10:00 02/03/18 09:46 Norvasc - PO 10 mg DAILY MELINDA Administration Benzocaine/Menthol 1 each 02/01/18 16:57 02/02/18 21:30 Cepacol Lozenge - MM 1 each Q4H PRN Administration SORE THROAT Bisacodyl 10 mg 02/01/18 21:39 Dulcolax Suppository - CA PRN PRN CONSTIPATION Dexamethasone Sodium Phosphate 4 mg 01/31/18 16:31 Decadron Injection - IVPUSH ONCE PRN NAUSEA AND/OR VOMITING Diphenhydramine HCl 12.5 mg 01/31/18 16:31 Benadryl Injection - IVPUSH ONCE PRN FOR ITCHING Diphenhydramine HCl 25 mg 02/03/18 05:57 02/03/18 06:04 Benadryl - PO 25 mg Q6H PRN Administration ITCHING Docusate Sodium 100 mg 02/01/18 21:38 02/02/18 21:27 Colace - PO 100 mg BID PRN Administration CONSTIPATION Enoxaparin Sodium 40 mg 02/01/18 10:00 02/03/18 09:46 Lovenox - SQ 40 mg DAILY MELINDA Administration Hydrochlorothiazide 50 mg 02/02/18 10:00 02/03/18 09:46 Hctz - PO 50 mg DAILY MELINDA Administration Hydromorphone HCl 4 mg 02/03/18 05:58 02/03/18 13:34 Dilaudid - PO 4 mg Q4H PRN Administration PAIN SCALE 4-10 Insulin Aspart 1 vial 01/31/18 22:00 02/03/18 11:46 Novolog Vial Sliding Scale - SQ 5 unit ACHS MELINDA Administration Protocol Insulin Detemir 40 units 02/02/18 10:00 02/03/18 09:46 Levemir Vial SQ 40 units BID MELINDA Administration Lisinopril 20 mg 01/31/18 22:00 02/03/18 09:46 Prinivil PO 20 mg BID MELINDA Administration Ondansetron HCl 4 mg 01/31/18 18:38 Zofran Injection IVPUSH Q6H PRN NAUSEA Promethazine HCl 12.5 mg 01/31/18 16:31 Phenergan Injection - IVPB Q6H PRN NAUSEA AND/OR VOMITING Impression 1. CKD 2. anemia 3. DM 4. HTN 5. obesity 6. fibroids 7. ovarian cysts 8. diabetic retinopathy 9. s/p hysterectomy 10. fever Plan - cont to monitor renal function - will do workup as outpt - incentive spirometer - follow urine cultures - avoid nsaids - pt now denies vaginal bleeding - monitor hg - will follow Dr Sanchez
--- NOTE | 2018-02-03 17:58 | CONS ---
DATE OF CONSULTATION: DATE OF DICTATION: 02/03/2018 The patient is a 47-year-old female, past medical history of hypertension, diabetes, CHF, fibroid uterus, CKD, anemia. She is currently status post abdominal hysterectomy postoperative day number 2, and her course was complicated by transaminitis. As per the patient, she has no history of liver disease, never had an episode of jaundice. She does not drink alcohol. She has not used any new medications or herbal supplements as an outpatient, and currently she admits to post surgical tenderness; however, no other abdominal pain. She denies nausea, vomiting, hematemesis, melena, or hematochezia. She has not had a recent endoscopic evaluation. Past medical and surgical history as listed in the HPI. ALLERGIES: CODEINE. SOCIAL HISTORY: Does not drink, smoke, or use drugs. FAMILY HISTORY: No history of liver disease, GI, or gynecological malignancy. PHYSICAL EXAMINATION: Vital Signs: Temperature 99.8, temperature earlier was 101, pulse 94, blood pressure 140/73, pulse oximetry 99% on room air, respiratory rate 12. General: In no acute distress. HEENT: Anicteric sclerae. Cardiovascular: S1, S2, regular rate and rhythm. Lungs: Bilaterally clear to auscultation. Abdomen: Soft and nontender. Extremities: No edema. LABORATORY DATA: White blood cell count 13.5, hemoglobin 9, hematocrit 30, MCV 73, platelet count 672, INR 1, sodium 133, potassium 4.5, BUN 34, creatinine 2.5, lactic acid 1, total bilirubin 0.3, AST 331, it was previously over 700, ALT 239, alkaline phosphatase 366, albumin 2.7, acetaminophen level is less than 2. Acute hepatitis panel is pending results. Abdominal ultrasound revealed status post cholecystectomy, borderline hepatomegaly with slight coarse echotexture which may represent mild fatty infiltration. There was no intra or extrahepatic biliary ductal dilation. Common bile duct measures 6 mm. IMPRESSION: Transaminitis, hepatocellular pattern, in the setting of recent surgery and anesthesia. These findings are most likely consistent with potential ischemic hepatopathy brought on by her recent surgery and sedation. Other etiology of chronic and inherited liver disease should be excluded at this time, although she admitted to taking Tylenol as an outpatient for pain relief, her current acetaminophen level is less than 20. I doubt her current transaminitis is secondary to overuse of acetaminophen. She has had a cholecystectomy and, on ultrasound, her biliary tree does not appear to be dilated, therefore, I do not suspect an obstructive process; however, if her liver tests do not continue to downtrend, would recommend an MRCP to further evaluate the biliary tree and exclude choledocholithiasis. Follow up her hepatitis panel. Will also order an LDH to further evaluate for ischemic hepatopathy. She may have underlying liver disease secondary to congestive hepatopathy if she does in fact have severe CHF. An echocardiogram should be used to evaluate. I will order serologies to complete the workup for chronic and inherited liver disease, trend liver tests and INR daily while hospitalized, avoid hepatotoxic medications. DO PAULINE WATT/[id number]
[2018-02-03] MEDS ORDERED: PIPERACILLIN/TAZOB 3.375 GM 3.375 GM in DEXTROSE 5%-WATER - 50 ML IVPB SCH (19:30)
[2018-02-03] MEDS: DOCUSATE SODIUM 100 MG CAPSULE (FP) PO PRN (21:20)
[2018-02-03] MEDS: SENNOSIDES 8.6MG TABLET (FP) PO PRN (22:10)
--- NOTE | 2018-02-04 00:09 | PN ---
Progress Note (short form) - Note Progress Note: ID Consult dictated Post op fever Leukocytosis Elevated LFTs Await cultures Empiric zosyn
[2018-02-04] MEDS: HYDROmorphone HCL 2 MG TABLET PO PRN ×5 (01:57→22:41)
[2018-02-04] MEDS: PIPERACILLIN/TAZOB 3.375 GM 3.375 GM in SODIUM CHLORIDE 50 ML IVPB SCH ×2 (02:57→10:00)
[2018-02-04] MEDS: INSULIN SLIDING SCALE (NOVOLOG) 1 VIAL SQ SCH ×4 (06:38→21:58)
[2018-02-04 07:53] LABS: INR 1.01 (0.83-1.09); PROTHROMBIN TIME (PATIENT) 11.9 SEC (9.7-13.0)
--- NOTE | 2018-02-04 08:03 | PN ---
Teaching Attending Note Name of Resident: Marla Hernandez ATTENDING PHYSICIAN STATEMENT I saw and evaluated the patient. I reviewed the resident's note and discussed the case with the resident. I agree with the resident's findings and plan as documented with exceptions below. SUBJECTIVE: Patient seen and examined. Feels good, passing gas, no BM yet. Some pain around surgical site, feels better. Denies any cough, dyspnea, urinary symptoms. OBJECTIVE: Vital Signs Period Temp Pulse Resp BP Sys/Cooper Pulse Ox Last 24 Hr 98.7 F-100.5 F 81-98 18-20 133-154/70-79 Intake & Output 02/01/18 02/02/18 02/03/18 02/04/18 23:59 23:59 23:59 23:59 Intake Total 1750 500 Output Total 1650 Balance 100 500 General; sitting in chair in no acute distress. CVS: S1S2 regular Chest; improved effort with encouragement, good air entry, no rales or wheezing appreciated Abdomen:Soft, obese, mild tenderness around the surgical site, otherwise NT, no voluntary or involuntary guarding or rigidity, neg Bustamante's sign Extremities: no edema, no calf tenderness Home Medications Medication Instructions Recorded Insulin Sliding Scale [Novolog 10 units SQ TIDCM 06/11/14 Vial Sliding Scale -] Lisinopril [Zestril] 20 mg PO BID 06/11/14 Amlodipine Besylate [Norvasc -] 10 mg PO DAILY 11/01/17 Atorvastatin Ca [Lipitor] 40 mg PO HS 11/01/17 Acetaminophen [Tylenol Arthritis] 1,300 mg PO PRN PRN 01/29/18 Hydrochlorothiazide [Hctz -] 50 mg PO DAILY 01/29/18 Insulin (Levemir) [Levemir Vial] 52 units SQ BID 01/29/18 Iron 18 mg PO TID 01/29/18 Active Medications Amlodipine Besylate (Norvasc -) 10 mg PO DAILY [facility] Last Admin: 02/03/18 09:46 Dose: 10 mg Benzocaine/Menthol (Cepacol Lozenge -) 1 each MM Q4H PRN PRN Reason: SORE THROAT Last Admin: 02/02/18 21:30 Dose: 1 each Bisacodyl (Dulcolax Suppository -) 10 mg WA PRN PRN PRN Reason: CONSTIPATION Dexamethasone Sodium Phosphate (Decadron Injection -) 4 mg IVPUSH ONCE PRN PRN Reason: NAUSEA AND/OR VOMITING Diphenhydramine HCl (Benadryl Injection -) 12.5 mg IVPUSH ONCE PRN PRN Reason: FOR ITCHING Diphenhydramine HCl (Benadryl -) 25 mg PO Q6H PRN PRN Reason: ITCHING Last Admin: 02/03/18 06:04 Dose: 25 mg Docusate Sodium (Colace -) 100 mg PO BID PRN PRN Reason: CONSTIPATION Last Admin: 02/03/18 21:20 Dose: 100 mg Enoxaparin Sodium (Lovenox -) 40 mg SQ DAILY [facility] Last Admin: 02/03/18 09:46 Dose: 40 mg Hydrochlorothiazide (Hctz -) 50 mg PO DAILY [facility] Last Admin: 02/03/18 09:46 Dose: 50 mg Hydromorphone HCl (Dilaudid -) 2 mg PO Q4H PRN PRN Reason: PAIN SCALE 4-10 Piperacillin Sod/Tazobactam (Sod 3.375 gm/ Sodium Chloride) 50 mls @ 100 mls/ hr IVPB Q8H-IV [facility]; Protocol Last Admin: 02/04/18 02:57 Dose: 100 mls/hr Insulin Aspart (Novolog Vial Sliding Scale -) 1 vial SQ ACHS [facility]; Protocol Last Admin: 02/04/18 06:38 Dose: Not Given Insulin Detemir (Levemir Vial) 40 units SQ BID [facility] Last Admin: 02/03/18 21:21 Dose: 40 units Lisinopril (Prinivil) 20 mg PO BID [facility] Last Admin: 02/03/18 21:20 Dose: 20 mg Ondansetron HCl (Zofran Injection) 4 mg IVPUSH Q6H PRN PRN Reason: NAUSEA Promethazine HCl (Phenergan Injection -) 12.5 mg IVPB Q6H PRN PRN Reason: NAUSEA AND/OR VOMITING Senna (Senna -) 2 tab PO HS PRN PRN Reason: CONSTIPATION Last Admin: 02/03/18 22:10 Dose: 2 tab Laboratory Results - last 24 hr 01/31/18 02/03/18 02/03/18 13:26 08:00 08:00 WBC 13.5 H RBC 4.12 Hgb 9.2 L Hct 30.4 L MCV 73.9 L MCH 22.3 L MCHC 30.2 L RDW 28.0 H Plt Count 672 H MPV 7.0 L PT with INR INR Sodium 133 L Potassium 4.5 Chloride 101 Carbon Dioxide 22 Anion Gap 11 BUN 34 H Creatinine 2.5 H Creat Clearance w eGFR 20.64 POC Glucometer Random Glucose 62 L Calcium 8.4 L Total Bilirubin 0.3 AST 331 H ALT 239 H Alkaline Phosphatase 366 H Total Protein 7.0 Albumin 2.7 L Acetaminophen Blood Type O POSITIVE Antibody Screen Negative Crossmatch See Detail 02/03/18 02/03/18 02/03/18 08:00 08:00 11:35 WBC RBC Hgb Hct MCV MCH MCHC RDW Plt Count MPV PT with INR 12.90 INR 1.09 Sodium Potassium Chloride Carbon Dioxide Anion Gap BUN Creatinine Creat Clearance w eGFR POC Glucometer 160 Random Glucose Calcium Total Bilirubin AST ALT Alkaline Phosphatase Total Protein Albumin Acetaminophen < 2.0 L Blood Type Antibody Screen Crossmatch 02/03/18 02/03/18 02/03/18 15:07 16:57 21:02 WBC RBC Hgb Hct MCV MCH MCHC RDW Plt Count MPV PT with INR INR Sodium Potassium Chloride Carbon Dioxide Anion Gap BUN Creatinine Creat Clearance w eGFR POC Glucometer 67 133 178 Random Glucose Calcium Total Bilirubin AST ALT Alkaline Phosphatase Total Protein Albumin Acetaminophen Blood Type Antibody Screen Crossmatch 02/04/18 02/04/18 02/04/18 00:42 01:48 06:08 WBC RBC Hgb Hct MCV MCH MCHC RDW Plt Count MPV PT with INR INR Sodium Potassium Chloride Carbon Dioxide Anion Gap BUN Creatinine Creat Clearance w eGFR POC Glucometer 56 144 100 Random Glucose Calcium Total Bilirubin AST ALT Alkaline Phosphatase Total Protein Albumin Acetaminophen Blood Type Antibody Screen Crossmatch 02/04/18 06:50 WBC RBC Hgb Hct MCV MCH MCHC RDW Plt Count MPV PT with INR 11.90 INR 1.01 Sodium Potassium Chloride Carbon Dioxide Anion Gap BUN Creatinine Creat Clearance w eGFR POC Glucometer Random Glucose Calcium Total Bilirubin AST ALT Alkaline Phosphatase Total Protein Albumin Acetaminophen Blood Type Antibody Screen Crossmatch Microbiology 02/02/18 22:40 Urine - Urine Clean Catch Urine Culture - Preliminary No growth. 02/02/18 21:53 Blood - Peripheral Venous Blood Culture - Preliminary NO GROWTH OBTAINED AFTER 24 HOURS, INCUBATION TO CONTINUE FOR 4 DAYS. 12/08/18 21:53 Blood - Peripheral Venous Blood Culture - Preliminary NO GROWTH OBTAINED AFTER 24 HOURS, INCUBATION TO CONTINUE FOR 4 DAYS. ASSESSMENT AND PLAN: 47 yof with PMhx of IDDM, HTN, morbid obesity, uterine fibroids, ?CHF, anemia, CKD stage III (baseline cr around 2) admitted for elective hysterectomy, post operative course complicated by fevers and abnormal LFTs. -POD #4 Hysterectomy for uterine fibroids -Abnormal LFTs, suspect from anesthesia/intra-op hemodynamic changes (SBP 100s- 140s, ?relative hypotension) (LFTs normal in 12/2017) -Fever, suspect post operative atelectasis (CXR with poor effort) -IDDM poorly controlled (A1c 11 in 12/2017) -CKD stage II-III (baseline cr around 2) -Essential HTN -Anemia s/p PRBC tranfusion (?3 units) -Morbid obesity -?CHF (reports remove history 7 years ago) Plan: LFTs improved, continue to trend. Avoid hepatotoxins. Abdominal US noted. Follow up hep panel. Hold statin. Taper dilaudid and minimize opioids. GI input noted. CXR, u/a noted. Encourage incentive spirometry and ambulation. Leucocytosis post op 12/6 likely in the setting of surgical stress and steroids, normalized now. Blood cx neg. Discussed with sriram Schilling/sultana dutta and monitor for now. Patient counseled on home Blood sugar monitoring. Hypoglycemia overnight. Decrease levemir, ISS, titrate based on blood sugar readings. Renal input appreciated. Avoid nephrotoxins, NSAIDs. Lisinopril/HCTZ. Renal function overall stable. Tolerating diet, off IVF. H/h stable. DVTPPx per lending activities supervisor. Will continue to follow. Thank you for the consult.
[2018-02-04 08:26] LABS: ANION GAP 10 MMOL/L (8-16); BLOOD UREA NITROGEN 30 mg/dL (7-18); CALCIUM 8.3 mg/dL (8.5-10.1); CHLORIDE 102 mmol/L (98-107); CO2 22 mmol/L (21-32); CREATININE 2.4 mg/dL (0.55-1.3); GLUCOSE,RANDOM 81 mg/dL (74-106); POTASSIUM 4.6 mmol/L (3.5-5.1); SODIUM 134 mmol/L (136-145)
[2018-02-04 08:40] LABS: HEMATOCRIT 31.6 % (32.4-45.2); HEMOGLOBIN 9.6 GM/dL (10.7-15.3); MCH 22.6 pg (25.7-33.7); MCHC 30.3 g/dl (32.0-36.0); MEAN CELL VOLUME 74.8 fl (80-96); MEAN PLT VOLUME 6.9 fl (7.5-11.1); PLATELET COUNT 584 K/MM3 (134-434); RBC 4.23 M/mm3 (3.60-5.2); RDW 29.1 % (11.6-15.6); WHITE BLOOD COUNT 10.8 K/mm3 (4.0-10.0)
[2018-02-04 08:41] LABS: ALBUMIN 2.3 g/dl (3.4-5.0); BILIRUBIN,DIRECT 0.1 mg/dL (0.0-0.2); BILIRUBIN,TOTAL 0.2 mg/dL (0.2-1); TOT PROT 6.4 g/dl (6.4-8.2)
[2018-02-04] MEDS ORDERED: MAGNESIUM HYDROX 2400MG/30ML ORAL SUSPENSION 30 ML CUP PO ONE (09:00)
--- NOTE | 2018-02-04 09:01 | PN ---
Progress Note, Physician History of Present Illness: Awake, alert No focal complaint Low grade temp 100.5, hypoglycemia overnight BC prelim no growth CBC pending LFTs improved - Current Medication List Current Medications: Active Medications Amlodipine Besylate (Norvasc -) 10 mg PO DAILY [facility] Last Admin: 02/03/18 09:46 Dose: 10 mg Benzocaine/Menthol (Cepacol Lozenge -) 1 each MM Q4H PRN PRN Reason: SORE THROAT Last Admin: 02/02/18 21:30 Dose: 1 each Bisacodyl (Dulcolax Suppository -) 10 mg NM PRN PRN PRN Reason: CONSTIPATION Dexamethasone Sodium Phosphate (Decadron Injection -) 4 mg IVPUSH ONCE PRN PRN Reason: NAUSEA AND/OR VOMITING Diphenhydramine HCl (Benadryl Injection -) 12.5 mg IVPUSH ONCE PRN PRN Reason: FOR ITCHING Diphenhydramine HCl (Benadryl -) 25 mg PO Q6H PRN PRN Reason: ITCHING Last Admin: 02/03/18 06:04 Dose: 25 mg Docusate Sodium (Colace -) 100 mg PO BID PRN PRN Reason: CONSTIPATION Last Admin: 02/03/18 21:20 Dose: 100 mg Enoxaparin Sodium (Lovenox -) 40 mg SQ DAILY [facility] Last Admin: 02/03/18 09:46 Dose: 40 mg Hydrochlorothiazide (Hctz -) 50 mg PO DAILY [facility] Last Admin: 02/03/18 09:46 Dose: 50 mg Hydromorphone HCl (Dilaudid -) 2 mg PO Q4H PRN PRN Reason: PAIN SCALE 4-10 Last Admin: 02/04/18 08:21 Dose: 2 mg Piperacillin Sod/Tazobactam (Sod 3.375 gm/ Sodium Chloride) 50 mls @ 100 mls/ hr IVPB Q8H-IV [facility]; Protocol Last Admin: 02/04/18 02:57 Dose: 100 mls/hr Insulin Aspart (Novolog Vial Sliding Scale -) 1 vial SQ ACHS [facility]; Protocol Last Admin: 02/04/18 06:38 Dose: Not Given Insulin Detemir (Levemir Vial) 30 units SQ BID [facility] Lisinopril (Prinivil) 20 mg PO BID [facility] Last Admin: 02/03/18 21:20 Dose: 20 mg Magnesium Hydroxide (Milk Of Magnesia -) 30 ml PO ONCE ONE Stop: 02/04/18 08:35 Ondansetron HCl (Zofran Injection) 4 mg IVPUSH Q6H PRN PRN Reason: NAUSEA Polyethylene Glycol (Miralax (For Daily Use) -) 17 gm PO BID [facility] Promethazine HCl (Phenergan Injection -) 12.5 mg IVPB Q6H PRN PRN Reason: NAUSEA AND/OR VOMITING Senna (Senna -) 2 tab PO HS PRN PRN Reason: CONSTIPATION Last Admin: 02/03/18 22:10 Dose: 2 tab - Objective Vital Signs: Vital Signs Temperature 98.8 F 02/04/18 08:49 Pulse Rate 90 02/04/18 08:49 Respiratory Rate 18 02/04/18 08:49 Blood Pressure 132/77 02/04/18 08:49 O2 Sat by Pulse Oximetry (%) 97 02/02/18 21:00 Constitutional: Yes: No Distress Eyes: Yes: Conjunctiva Clear Cardiovascular: Yes: Regular Rate and Rhythm, S1, S2 Respiratory: Yes: CTA Bilaterally Gastrointestinal: Yes: Normal Bowel Sounds, Soft, Abdomen, Obese, Tenderness, Other (mild excisional tenderness; small amt serosanguinous fluid expressed from L lateral wound no wound erythema) Extremities: Yes: Other (+ amputation, toes bilaterally) Edema: Yes Labs: CBC, BMP 02/04/18 06:50 INR, PTT INR 1.01 (0.83-1.09) 02/04/18 06:50 Assessment/Plan Post operative fever ? non-infectious Leukocytosis Elevated LFTs improving CKD Await todays CBC Check BC If BC no growth, WBC improved observe off antibiotics Incentive spirometry
[2018-02-04] MEDS: POLYETHYLENE GLYCOL 3350 119 GM BTL PO SCH ×2 (10:00→21:49)
[2018-02-04] MEDS: LISINOPRIL 20 MG TABLET (FP) PO SCH ×2 (10:50→21:50)
[2018-02-04] MEDS: INSULIN (LEVEMIR) 100 UNITS/ML UNITS SQ SCH ×2 (10:52→21:59)
[2018-02-04] MEDS: ENOXAPARIN NA (PORCINE) 40 MG/0.4 ML DISP.SYRIN SQ SCH (10:55)
[2018-02-04] MEDS: HYDROCHLOROTHIAZIDE 25 MG TABLET (FP) PO SCH (10:57)
[2018-02-04] MEDS: amLODIPine BESYLATE 10 MG TABLET (FP) PO SCH (10:59)
--- NOTE | 2018-02-04 12:17 | PN ---
Progress Note (short form) - Note Progress Note: GI follow up note No overnight events. Patient appears well. No pain except from surgical site. Vital Signs Temp 98.8 F 02/04/18 08:49 Pulse 90 02/04/18 08:49 Resp 18 02/04/18 08:49 BP 132/77 02/04/18 08:49 Pulse Ox 97 02/02/18 21:00 Exam - well appearing, NAD, anicteric Labs reviewed. Of note, AP 308, AST 128, ALT 149. INR 1.01. Serologies pending. US with borderline hepatomegaly Impression - likely ischemia from relative hypotension intra-op. Improving. - daily LFTs and INR - avoid hepatotoxins - follow up serologies
--- NOTE | 2018-02-04 12:21 | ECHO ---
Name: TO HECTOR Exam:Adult Echocardiogram Study Date: 02/04/2018 10:13 AM Age: 47 yrs Reason For Study: LV Function Height: 67 in Weight: 235 lb BSA: 2.2 m2 MMode/2D Measurements & Calculations IVSd: 1.4 cm Ao root diam: 2.4 cm LVIDd: 4.6 cm LA dimension: 3.8 cm LVIDs: 3.0 cm LVPWd: 1.3 cm EDV(Teich): 96.9 ml ESV(Teich): 34.0 ml Doppler Measurements & Calculations MV E max jose carlos: 121.0 cm/sec TR max jose carlos: 319.7 cm/sec MV A max jose carlos: 102.8 cm/sec TR max P.9 mmHg MV E/A: 1.2 MV dec time: 0.14 sec PI end-d jose carlos: 129.0 cm/sec Med Peak E' Jose Carlos: 5.0 cm/sec Med E/e': 24.2 Lat Peak E' Jose Carlos: 8.3 cm/sec Lat E/e': 14.6 Procedure A complete two-dimensional transthoracic echocardiogram was performed (2D, M-mode, Doppler and color flow Doppler). Left Ventricle The left ventricle is normal in size. There is mild concentric left ventricular hypertrophy. Left amanda tricular systolic function is normal. Ejection Fraction = 60-65%. No regional wall motion abnormalities noted. Right Ventricle The right ventricle is normal size. The right ventricular systolic function is normal. Atria The left atrial size is normal. Right atrial size is normal. Mitral Valve The mitral valve is normal in structure and function. There is mild mitral regurgitation. Tricuspid Valve The tricuspid valve is normal in structure and function. There is moderate tricuspid regurgitation. P ulmonary artery systolic pressure is at least 45 mmHg assuming RA pressure of 3 mmHg. Aortic Valve The aortic valve is normal in structure and function. No aortic regurgitation is present. Pulmonic Valve The pulmonic valve is not well visualized. Mild pulmonic valvular regurgitation. Great Vessels The aortic root is normal size. Pericardium/Pleura There is no pericardial effusion. Interpretation Summary The left ventricle is normal in size. There is mild concentric left ventricular hypertrophy. Left ventricular systolic function is normal. No regional wall motion abnormalities noted. Ejection Fraction = 60-65%. The right ventricular systolic function is normal. The left atrial size is normal. Right atrial size is normal. There is mild mitral regurgitation. There is moderate tricuspid regurgitation. Pulmonary artery systolic pressure is at least 45 mmHg assuming RA pressure of 3 mmHg Mild pulmonic valvular regurgitation. There is no pericardial effusion. Previous study is not available for comparison Michael Steele MD 02/04/2018 12:20 PM
--- NOTE | 2018-02-04 12:49 | OP ---
DATE OF OPERATION: 01/31/2018 PREOPERATIVE DIAGNOSES: Menometrorrhagia, anemia, fibroid uterus, pelvic pain. POSTOPERATIVE DIAGNOSES: Menometrorrhagia, anemia, fibroid uterus, pelvic pain, pelvic adhesions. SURGEON: Adam Lassiter MD COUPON MANIFEST CLERK: Raheel Morales MD ANESTHESIA: General. ANESTHESIOLOGIST: Rogelio Bocanegra MD ESTIMATED BLOOD LOSS: 200 mL. DESCRIPTION OF PROCEDURE: The patient was taken to the operative room, adequate general anesthesia, abdomen and perineum were prepped and draped. A Pfannenstiel abdominal skin incision was made over the previous incision. Abdominal wall was cut layer by layer until fascia was exposed. There was scarring of the fascia to the rectus muscle. These adhesions were lysed with Alejandro scissor and then peritoneum was exposed and abdomen was entered. Upper abdomen was checked and normal. Bowels were packed away. The uterus was enlarged with multiple fibroids extending to the umbilical area. Both ovaries were enlarged with bilateral large cysts. There was bladder adhesion to the anterior lower uterine segment and the posterior cul-de-sac adhesions of the peritoneum to the cul-de-sac area. First these adhesions were lysed meticulously with the Metzenbaum scissors and cautery and hemostasis was established. Bladder was pushed down. Then both round ligaments were identified bilaterally, clamped with bipolar LigaSure cautery, cauterized, and cut, and then anterior leaf of broad ligament was opened and bladder was pushed down. Both ovaries were abnormally enlarged and irregular shaped and adherent to both pelvic sidewalls. First these adhesions were lysed and then because of the abnormal shape of the ovaries, decided to do bilateral oophorectomy. Then infundibulum ligament was identified bilaterally, clamped with the Tj clamp, cut, and the clamp replaced with double tie 0 Vicryl ties bilaterally. Then the bladder was further pushed down. The uterine artery was identified bilaterally, clamped, and clamp replaced with 0 Vicryl suture bilaterally. Paracervical area was clamped with the Tj clamp, cut, and the clamp replaced with 0 Vicryl suture bilaterally. Then specimen was removed about the cervix, and then cervicovaginal angle was sutured with interrupted suture of 1 Vicryl, and then cervix was sutured with interrupted suture of 0 Vicryl. Hemostasis was established. No active bleeding was seen. Pelvic cavity was irrigated several times. Both ureteral papillae were normal. Reperitonealization of the pelvic floor was done with continuous suture of 2-0 Vicryl. All the lap pads, sponge, and instrument counts were correct. Peritoneum was closed with 0 Vicryl continuous suture. Muscles were brought together with interrupted suture of 0 Vicryl. Fascia was closed with continuous suture 0 Vicryl, subcutaneous fat with interrupted suture of 0 Vicryl, and the skin was closed with 3-0 Vicryl subcuticular continuous suture. The patient tolerated the procedure well, left the OR in good condition. Neal [id number]
[2018-02-04 13:39] LABS: ANISOCYTOSIS 3+; MACROCYTOSIS 0; PLATELET ESTIMATE INCREASED; TEAR DROP CELLS 1+
--- NOTE | 2018-02-04 13:57 | PN ---
Physical Exam: SUBJECTIVE: Patient seen and examined at bedside. no acute event overnight- patient is feeling well; passing gas however has not had a boel movement yet. she denies any CP/SOB/N/V fevers or chills OBJECTIVE: Vital Signs Period Temp Pulse Resp BP Sys/Cooper Pulse Ox Last 24 Hr 98.7 F-100.5 F 81-98 18-20 132-154/74-79 GENERAL: The patient is awake, alert, and fully oriented, in no acute distress. EYES: no scleral icterus . NECK: no JVD. LUNGS: CTA B/L; no rales, rhonchi or wheezing HEART: Regular rate and rhythm, S1, S2 without murmur, rub or gallop. ABDOMEN: Soft, slight tenderness around the surgical site; +BS ; negative murphys sign EXTREMITIES: 2+ pulses, warm, well-perfused, trace edema. PSYCH: Normal mood, normal affect. SKIN: Warm, dry, normal turgor, no rashes or lesions noted Laboratory Results - last 24 hr 01/31/18 02/03/18 02/03/18 13:26 15:07 16:57 WBC RBC Hgb Hct MCV MCH MCHC RDW Plt Count MPV Absolute Neuts (auto) Neutrophils % Neutrophils % (Manual) Band Neutrophils % Lymphocytes % Lymphocytes % (Manual) Monocytes % (Manual) Eosinophils % (Manual) Basophils % (Manual) Myelocytes % (Man) Promyelocytes % (Man) Blast Cells % (Manual) Nucleated RBC % Metamyelocytes Hypochromia Platelet Estimate Polychromasia Poikilocytosis Anisocytosis Microcytosis Macrocytosis Tear Drop Cells PT with INR INR Sodium Potassium Chloride Carbon Dioxide Anion Gap BUN Creatinine Creat Clearance w eGFR POC Glucometer 67 133 Random Glucose Calcium Total Bilirubin Direct Bilirubin AST ALT Alkaline Phosphatase LD Total Total Protein Albumin Blood Type O POSITIVE Antibody Screen Negative Crossmatch See Detail 02/03/18 02/04/18 02/04/18 21:02 00:42 01:48 WBC RBC Hgb Hct MCV MCH MCHC RDW Plt Count MPV Absolute Neuts (auto) Neutrophils % Neutrophils % (Manual) Band Neutrophils % Lymphocytes % Lymphocytes % (Manual) Monocytes % (Manual) Eosinophils % (Manual) Basophils % (Manual) Myelocytes % (Man) Promyelocytes % (Man) Blast Cells % (Manual) Nucleated RBC % Metamyelocytes Hypochromia Platelet Estimate Polychromasia Poikilocytosis Anisocytosis Microcytosis Macrocytosis Tear Drop Cells PT with INR INR Sodium Potassium Chloride Carbon Dioxide Anion Gap BUN Creatinine Creat Clearance w eGFR POC Glucometer 178 56 144 Random Glucose Calcium Total Bilirubin Direct Bilirubin AST ALT Alkaline Phosphatase LD Total Total Protein Albumin Blood Type Antibody Screen Crossmatch 02/04/18 02/04/18 02/04/18 06:08 06:50 06:50 WBC 10.8 H RBC 4.23 Hgb 9.6 L Hct 31.6 L MCV 74.8 L MCH 22.6 L MCHC 30.3 L RDW 29.1 H Plt Count 584 H MPV 6.9 L Absolute Neuts (auto) 6.3 Neutrophils % No Result Required. Neutrophils % (Manual) 79.0 Band Neutrophils % 0.0 Lymphocytes % No Result Required. Lymphocytes % (Manual) 6.0 L Monocytes % (Manual) 6 Eosinophils % (Manual) 8.0 H D Basophils % (Manual) 1.0 Myelocytes % (Man) 0 Promyelocytes % (Man) 0 Blast Cells % (Manual) 0 Nucleated RBC % 0 Metamyelocytes 0 Hypochromia 1+ Platelet Estimate Increased Polychromasia 1+ Poikilocytosis 1+ Anisocytosis 3+ Microcytosis 2+ Macrocytosis 0 Tear Drop Cells 1+ PT with INR INR Sodium 134 L Potassium 4.6 Chloride 102 Carbon Dioxide 22 Anion Gap 10 BUN 30 H Creatinine 2.4 H Creat Clearance w eGFR 21.64 POC Glucometer 100 Random Glucose 81 Calcium 8.3 L Total Bilirubin Direct Bilirubin AST ALT Alkaline Phosphatase LD Total Total Protein Albumin Blood Type Antibody Screen Crossmatch 02/04/18 02/04/18 02/04/18 06:50 06:50 10:02 WBC RBC Hgb Hct MCV MCH MCHC RDW Plt Count MPV Absolute Neuts (auto) Neutrophils % Neutrophils % (Manual) Band Neutrophils % Lymphocytes % Lymphocytes % (Manual) Monocytes % (Manual) Eosinophils % (Manual) Basophils % (Manual) Myelocytes % (Man) Promyelocytes % (Man) Blast Cells % (Manual) Nucleated RBC % Metamyelocytes Hypochromia Platelet Estimate Polychromasia Poikilocytosis Anisocytosis Microcytosis Macrocytosis Tear Drop Cells PT with INR 11.90 INR 1.01 Sodium Potassium Chloride Carbon Dioxide Anion Gap BUN Creatinine Creat Clearance w eGFR POC Glucometer 138 Random Glucose Calcium Total Bilirubin 0.2 Direct Bilirubin 0.1 AST 128 H ALT 149 H Alkaline Phosphatase 308 H LD Total 319 H Total Protein 6.4 Albumin 2.3 L Blood Type Antibody Screen Crossmatch 02/04/18 12:29 WBC RBC Hgb Hct MCV MCH MCHC RDW Plt Count MPV Absolute Neuts (auto) Neutrophils % Neutrophils % (Manual) Band Neutrophils % Lymphocytes % Lymphocytes % (Manual) Monocytes % (Manual) Eosinophils % (Manual) Basophils % (Manual) Myelocytes % (Man) Promyelocytes % (Man) Blast Cells % (Manual) Nucleated RBC % Metamyelocytes Hypochromia Platelet Estimate Polychromasia Poikilocytosis Anisocytosis Microcytosis Macrocytosis Tear Drop Cells PT with INR INR Sodium Potassium Chloride Carbon Dioxide Anion Gap BUN Creatinine Creat Clearance w eGFR POC Glucometer 128 Random Glucose Calcium Total Bilirubin Direct Bilirubin AST ALT Alkaline Phosphatase LD Total Total Protein Albumin Blood Type Antibody Screen Crossmatch Active Medications Generic Name Dose Route Start Last Admin Trade Name Freq PRN Reason Stop Dose Admin Amlodipine Besylate 10 mg 02/01/18 10:00 02/04/18 10:59 Norvasc - PO 10 mg DAILY MELINDA Administration Benzocaine/Menthol 1 each 02/01/18 16:57 02/02/18 21:30 Cepacol Lozenge - MM 1 each Q4H PRN Administration SORE THROAT Bisacodyl 10 mg 02/01/18 21:39 Dulcolax Suppository - ND PRN PRN CONSTIPATION Dexamethasone Sodium Phosphate 4 mg 01/31/18 16:31 Decadron Injection - IVPUSH ONCE PRN NAUSEA AND/OR VOMITING Diphenhydramine HCl 12.5 mg 01/31/18 16:31 Benadryl Injection - IVPUSH ONCE PRN FOR ITCHING Diphenhydramine HCl 25 mg 02/03/18 05:57 02/03/18 06:04 Benadryl - PO 25 mg Q6H PRN Administration ITCHING Docusate Sodium 100 mg 02/01/18 21:38 02/03/18 21:20 Colace - PO 100 mg BID PRN Administration CONSTIPATION Enoxaparin Sodium 40 mg 02/01/18 10:00 02/04/18 10:55 Lovenox - SQ 40 mg DAILY MELINDA Administration Hydrochlorothiazide 50 mg 02/02/18 10:00 02/04/18 10:57 Hctz - PO 50 mg DAILY MELINDA Administration Hydromorphone HCl 2 mg 02/04/18 06:04 02/04/18 08:21 Dilaudid - PO 2 mg Q4H PRN Administration PAIN SCALE 4-10 Insulin Aspart 1 vial 01/31/18 22:00 02/04/18 06:38 Novolog Vial Sliding Scale - SQ Not Given ACHS [facility] Protocol Insulin Detemir 30 units 02/04/18 08:32 02/04/18 10:52 Levemir Vial SQ 30 units BID MELINDA Administration Lisinopril 20 mg 01/31/18 22:00 02/04/18 10:50 Prinivil PO 20 mg BID MELINDA Administration Ondansetron HCl 4 mg 01/31/18 18:38 Zofran Injection IVPUSH Q6H PRN NAUSEA Polyethylene Glycol 17 gm 02/04/18 10:00 Miralax (For Daily Use) - PO BID MELINDA Promethazine HCl 12.5 mg 01/31/18 16:31 Phenergan Injection - IVPB Q6H PRN NAUSEA AND/OR VOMITING Senna 2 tab 02/03/18 21:41 02/03/18 22:10 Senna - PO 2 tab HS PRN Administration CONSTIPATION ASSESSMENT/PLAN: 47 y.o female with PMH of DM, HTB, fibroids, CKD stage 3, who is s/p elective hysterectomy found to have fevers and elevated LFTS post op. POD#4 -patient has been afebrile since this morning and WBC is trending down -patient is ambulating -encourage incentive spirometery -monitor WBC count; no longer on abx was per ID -Bowel regimen -Zofran PRN for nausea - #Transaminitis - LFTS trending down this morning -hep panel pending -GI saw patient; follow up recs likely 2/2 anesthesia and post-op reactive transaminitis #DM -ISS -decreased levemir to 30 units BID -BGMS ACHS #HTN - c/w home medications #CKD -baseline Cr 2.1; today was 2.4 -monitor CMP -nephro on board #ANemia -latset HGb was 9.6 this Am -cont to monitor F/E/N not on fluids monitor CMP diabetic diet Problem List - Problems (1) Fever Code(s): R50.9 - FEVER, UNSPECIFIED (2) S/P abdominal hysterectomy Code(s): Z90.710 - ACQUIRED ABSENCE OF BOTH CERVIX AND UTERUS (3) Transaminitis Code(s): R74.0 - NONSPEC ELEV OF LEVELS OF TRANSAMNS & LACTIC ACID DEHYDRGNSE (4) Anemia Code(s): D64.9 - ANEMIA, UNSPECIFIED Qualifiers: Anemia type: other cause Other causes of anemia: other cause, not classified Qualified Code(s): D64.89 - Other specified anemias Visit type - Emergency Visit Emergency Visit: Yes ED Registration Date: 01/31/18 Care time: The patient presented to the Emergency Department on the above date and was hospitalized for further evaluation of their emergent condition. - New Patient This patient is new to me today: Yes Date on this admission: 02/04/18 - Critical Care Critical Care patient: No
--- NOTE | 2018-02-04 14:24 | PN ---
Progress Note, Physician History of Present Illness: Pt seen and examined at bedside. She is awake and alert. She denies shortness of breath. She denies fevers. She denies dysuria. - Current Medication List Current Medications: Active Medications Amlodipine Besylate (Norvasc -) 10 mg PO DAILY [facility] Last Admin: 02/04/18 10:59 Dose: 10 mg Benzocaine/Menthol (Cepacol Lozenge -) 1 each MM Q4H PRN PRN Reason: SORE THROAT Last Admin: 02/02/18 21:30 Dose: 1 each Bisacodyl (Dulcolax Suppository -) 10 mg AL PRN PRN PRN Reason: CONSTIPATION Dexamethasone Sodium Phosphate (Decadron Injection -) 4 mg IVPUSH ONCE PRN PRN Reason: NAUSEA AND/OR VOMITING Diphenhydramine HCl (Benadryl Injection -) 12.5 mg IVPUSH ONCE PRN PRN Reason: FOR ITCHING Diphenhydramine HCl (Benadryl -) 25 mg PO Q6H PRN PRN Reason: ITCHING Last Admin: 02/03/18 06:04 Dose: 25 mg Docusate Sodium (Colace -) 100 mg PO BID PRN PRN Reason: CONSTIPATION Last Admin: 02/03/18 21:20 Dose: 100 mg Enoxaparin Sodium (Lovenox -) 40 mg SQ DAILY [facility] Last Admin: 02/04/18 10:55 Dose: 40 mg Hydrochlorothiazide (Hctz -) 50 mg PO DAILY [facility] Last Admin: 02/04/18 10:57 Dose: 50 mg Hydromorphone HCl (Dilaudid -) 2 mg PO Q4H PRN PRN Reason: PAIN SCALE 4-10 Last Admin: 02/04/18 08:21 Dose: 2 mg Insulin Aspart (Novolog Vial Sliding Scale -) 1 vial SQ [facility]; Protocol Last Admin: 02/04/18 06:38 Dose: Not Given Insulin Detemir (Levemir Vial) 30 units SQ BID [facility] Last Admin: 02/04/18 10:52 Dose: 30 units Lisinopril (Prinivil) 20 mg PO BID [facility] Last Admin: 02/04/18 10:50 Dose: 20 mg Ondansetron HCl (Zofran Injection) 4 mg IVPUSH Q6H PRN PRN Reason: NAUSEA Polyethylene Glycol (Miralax (For Daily Use) -) 17 gm PO BID MELINDA Promethazine HCl (Phenergan Injection -) 12.5 mg IVPB Q6H PRN PRN Reason: NAUSEA AND/OR VOMITING Senna (Senna -) 2 tab PO HS PRN PRN Reason: CONSTIPATION Last Admin: 02/03/18 22:10 Dose: 2 tab - Objective Vital Signs: Vital Signs Temperature 98.8 F 02/04/18 08:49 Pulse Rate 90 02/04/18 08:49 Respiratory Rate 18 02/04/18 08:49 Blood Pressure 132/77 02/04/18 08:49 O2 Sat by Pulse Oximetry (%) 97 02/02/18 21:00 Constitutional: Yes: Calm Eyes: Yes: Conjunctiva Clear HENT: Yes: Atraumatic Cardiovascular: Yes: S1, S2 Respiratory: Yes: CTA Bilaterally Gastrointestinal: Yes: Normal Bowel Sounds, Soft, Abdomen, Obese Genitourinary: Yes: Other (s/p hysterectomy) Musculoskeletal: Yes: WNL Edema: Yes Edema: LLE: Trace, RLE: Trace Neurological: Yes: Oriented Psychiatric: Yes: Oriented Labs: CBC, BMP 02/04/18 06:50 02/04/18 06:50 INR, PTT INR 1.01 (0.83-1.09) 02/04/18 06:50 Problem List - Problems (1) Anemia Code(s): D64.9 - ANEMIA, UNSPECIFIED Qualifiers: Anemia type: other cause Other causes of anemia: other cause, not classified Qualified Code(s): D64.89 - Other specified anemias (2) CKD (chronic kidney disease) Code(s): N18.9 - CHRONIC KIDNEY DISEASE, UNSPECIFIED (3) Fibroid (bleeding) (uterine) Code(s): D25.9 - LEIOMYOMA OF UTERUS, UNSPECIFIED Qualifiers: Uterine leiomyoma location: submucous Qualified Code(s): D25.0 - Submucous leiomyoma of uterus (4) Type 1 diabetes Code(s): E10.9 - TYPE 1 DIABETES MELLITUS WITHOUT COMPLICATIONS Assessment/Plan Current Medications Generic Name Dose Route Start Last Admin Trade Name Freq PRN Reason Stop Dose Admin Amlodipine Besylate 10 mg 02/01/18 10:00 02/04/18 10:59 Norvasc - PO 10 mg DAILY MELINDA Administration Benzocaine/Menthol 1 each 02/01/18 16:57 02/02/18 21:30 Cepacol Lozenge - MM 1 each Q4H PRN Administration SORE THROAT Bisacodyl 10 mg 02/01/18 21:39 Dulcolax Suppository - AL PRN PRN CONSTIPATION Dexamethasone Sodium Phosphate 4 mg 01/31/18 16:31 Decadron Injection - IVPUSH ONCE PRN NAUSEA AND/OR VOMITING Diphenhydramine HCl 12.5 mg 01/31/18 16:31 Benadryl Injection - IVPUSH ONCE PRN FOR ITCHING Diphenhydramine HCl 25 mg 02/03/18 05:57 02/03/18 06:04 Benadryl - PO 25 mg Q6H PRN Administration ITCHING Docusate Sodium 100 mg 02/01/18 21:38 02/03/18 21:20 Colace - PO 100 mg BID PRN Administration CONSTIPATION Enoxaparin Sodium 40 mg 02/01/18 10:00 02/04/18 10:55 Lovenox - SQ 40 mg DAILY MELINDA Administration Hydrochlorothiazide 50 mg 02/02/18 10:00 02/04/18 10:57 Hctz - PO 50 mg DAILY [facility] Administration Hydromorphone HCl 2 mg 02/04/18 06:04 02/04/18 08:21 Dilaudid - PO 2 mg Q4H PRN Administration PAIN SCALE 4-10 Insulin Aspart 1 vial 01/31/18 22:00 02/04/18 06:38 Novolog Vial Sliding Scale - SQ Not Given ACHS [facility] Protocol Insulin Detemir 30 units 02/04/18 08:32 02/04/18 10:52 Levemir Vial SQ 30 units BID [facility] Administration Lisinopril 20 mg 01/31/18 22:00 02/04/18 10:50 Prinivil PO 20 mg BID [facility] Administration Ondansetron HCl 4 mg 01/31/18 18:38 Zofran Injection IVPUSH Q6H PRN NAUSEA Polyethylene Glycol 17 gm 02/04/18 10:00 Miralax (For Daily Use) - PO BID MELINDA Promethazine HCl 12.5 mg 01/31/18 16:31 Phenergan Injection - IVPB Q6H PRN NAUSEA AND/OR VOMITING Senna 2 tab 02/03/18 21:41 02/03/18 22:10 Senna - PO 2 tab HS PRN Administration CONSTIPATION Microbiology 02/02/18 22:40 Urine - Urine Clean Catch Urine Culture - Preliminary No growth. 02/02/18 21:53 Blood - Peripheral Venous Blood Culture - Preliminary NO GROWTH OBTAINED AFTER 24 HOURS, INCUBATION TO CONTINUE FOR 4 DAYS. 02/02/18 21:53 Blood - Peripheral Venous Blood Culture - Preliminary NO GROWTH OBTAINED AFTER 24 HOURS, INCUBATION TO CONTINUE FOR 4 DAYS. Impression 1. CKD 2. anemia 3. DM 4. HTN 5. obesity 6. fibroids 7. ovarian cysts 8. diabetic retinopathy 9. s/p hysterectomy 10. fever Plan - will see pt in office for renal farhad[ - will need better glucose control - cultures are negative so far - incentive spirometer - avoid nsaids - monitor hg - will follow Dr Sanchez
--- NOTE | 2018-02-04 17:12 | PN ---
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 grade temp last night , afebrile now, no chills,voids ok, normal BM CBC, BMP 02/04/18 06:50 02/04/18 06:50 Last Vital Signs Temp Pulse Resp BP Pulse Ox 99.3 F 90 20 138/83 97 02/04/18 13:00 02/04/18 13:00 02/04/18 13:00 02/04/18 13:00 02/02/18 21:00 Current Medications Generic Name Dose Route Start Last Admin Trade Name Freq PRN Reason Stop Dose Admin Amlodipine Besylate 10 mg 02/01/18 10:00 02/04/18 10:59 Norvasc - PO 10 mg DAILY MELINDA Administration Benzocaine/Menthol 1 each 02/01/18 16:57 02/02/18 21:30 Cepacol Lozenge - MM 1 each Q4H PRN Administration SORE THROAT Bisacodyl 10 mg 02/01/18 21:39 Dulcolax Suppository - [place] PRN PRN CONSTIPATION Dexamethasone Sodium Phosphate 4 mg 01/31/18 16:31 Decadron Injection - IVPUSH ONCE PRN NAUSEA AND/OR VOMITING Diphenhydramine HCl 12.5 mg 01/31/18 16:31 Benadryl Injection - IVPUSH ONCE PRN FOR ITCHING Diphenhydramine HCl 25 mg 02/03/18 05:57 02/03/18 06:04 Benadryl - PO 25 mg Q6H PRN Administration ITCHING Docusate Sodium 100 mg 02/01/18 21:38 02/03/18 21:20 Colace - PO 100 mg BID PRN Administration CONSTIPATION Enoxaparin Sodium 40 mg 02/01/18 10:00 02/04/18 10:55 Lovenox - SQ 40 mg DAILY MELINDA Administration Hydrochlorothiazide 50 mg 02/02/18 10:00 02/04/18 10:57 Hctz - PO 50 mg DAILY MELINDA Administration Hydromorphone HCl 2 mg 02/04/18 06:04 02/04/18 15:09 Dilaudid - PO 2 mg Q4H PRN Administration PAIN SCALE 4-10 Insulin Aspart 1 vial 01/31/18 22:00 02/04/18 11:00 Novolog Vial Sliding Scale - SQ Not Given ACHS [facility] Protocol Insulin Detemir 30 units 02/04/18 08:32 02/04/18 10:52 Levemir Vial SQ 30 units BID MELINDA Administration Lisinopril 20 mg 01/31/18 22:00 02/04/18 10:50 Prinivil PO 20 mg BID MELINDA Administration Ondansetron HCl 4 mg 01/31/18 18:38 Zofran Injection IVPUSH Q6H PRN NAUSEA Polyethylene Glycol 17 gm 02/04/18 10:00 02/04/18 10:00 Miralax (For Daily Use) - PO Not Given BID [facility] Promethazine HCl 12.5 mg 01/31/18 16:31 Phenergan Injection - IVPB Q6H PRN NAUSEA AND/OR VOMITING Senna 2 tab 02/03/18 21:41 02/03/18 22:10 Senna - PO 2 tab HS PRN Administration CONSTIPATION abdomen soft, no distension, no cva BS present normal incision dry, clean no calf tenderness no vaginal bleeding or discharge impression. clinically looks well, non toxic wbc decreasing on Zocin , will cont, antibiotics pending blood culture LFT are improving renal function improved BS are well controlled
[2018-02-05] MEDS: diphenhydrAMINE HCL 25 MG CAPSULE (FP) PO PRN (01:20)
[2018-02-05] MEDS: SENNOSIDES 8.6MG TABLET (FP) PO PRN (01:20)
[2018-02-05] MEDS: HYDROmorphone HCL 2 MG TABLET PO PRN ×4 (02:33→20:50)
[2018-02-05 05:31] LABS: HEP.C VIRUS AB 0.1 s/co ratio (0.0-0.9)
[2018-02-05 07:01] LABS: HEMATOCRIT 29.3 % (32.4-45.2); MCH 22.8 pg (25.7-33.7); MCHC 30.6 g/dl (32.0-36.0); MEAN CELL VOLUME 74.4 fl (80-96); MEAN PLT VOLUME 6.4 fl (7.5-11.1); PLATELET COUNT 562 K/MM3 (134-434); RBC 3.94 M/mm3 (3.60-5.2); RDW 28.4 % (11.6-15.6); WHITE BLOOD COUNT 9.5 K/mm3 (4.0-10.0)
[2018-02-05 07:14] LABS: INR 1.13 (0.83-1.09); PROTHROMBIN TIME (PATIENT) 13.4 SEC (9.7-13.0)
[2018-02-05 07:31] LABS: ALBUMIN 2.2 g/dl (3.4-5.0); ALK PHOS 338 U/L (45-117); ANION GAP 6 MMOL/L (8-16); BILIRUBIN,TOTAL 0.3 mg/dL (0.2-1); BLOOD UREA NITROGEN 25 mg/dL (7-18); CALCIUM 8.1 mg/dL (8.5-10.1); CHLORIDE 102 mmol/L (98-107); CO2 27 mmol/L (21-32); CREATININE 2.4 mg/dL (0.55-1.3); GLUCOSE,RANDOM 118 mg/dL (74-106); MAGNESIUM 2.4 mg/dL (1.8-2.4); PHOSPHOROUS 4.4 mg/dL (2.5-4.9); POTASSIUM 4.3 mmol/L (3.5-5.1); SGOT/AST 97 U/L (15-37); SGPT/ALT 124 U/L (13-61); SODIUM 136 mmol/L (136-145); TOT PROT 6.4 g/dl (6.4-8.2)
--- NOTE | 2018-02-05 08:48 | PN ---
Physical Exam: SUBJECTIVE: Patient seen and examined at bedside- no acute events overnight. patient is not having any pain and is passing gas; however has not had a bowel movement yet since surgery; she denies any CP/SOB/N/V fevers or chills OBJECTIVE: Vital Signs Period Temp Pulse Resp BP Sys/Cooper Pulse Ox Last 24 Hr 98.6 F-99.5 F 84-93 18-20 132-152/60-83 97 GENERAL: The patient is awake, alert, and fully oriented, in no acute distress. EYES: no scleral icterus. NECK: no JVD no lymphadenopathy LUNGS:CTA B/L; no rales, rhonchi or wheezing HEART: Regular rate and rhythm, S1, S2 without murmur, rub or gallop. ABDOMEN: Soft, slight tenderness at surgical site; non-distended +bs ; negative murphys signs EXTREMITIES: 2+ pulses, warm, well-perfused, no edema. PSYCH: Normal mood, normal affect. SKIN: Warm, dry, normal turgor, no rashes or lesions noted Laboratory Results - last 24 hr 02/03/18 02/04/18 02/04/18 08:00 06:50 10:02 WBC 10.8 H RBC 4.23 Hgb 9.6 L Hct 31.6 L MCV 74.8 L MCH 22.6 L MCHC 30.3 L RDW 29.1 H Plt Count 584 H MPV 6.9 L Absolute Neuts (auto) 6.3 Neutrophils % No Result Required. Neutrophils % (Manual) 79.0 Band Neutrophils % 0.0 Lymphocytes % No Result Required. Lymphocytes % (Manual) 6.0 L Monocytes % Monocytes % (Manual) 6 Eosinophils % Eosinophils % (Manual) 8.0 H D Basophils % Basophils % (Manual) 1.0 Myelocytes % (Man) 0 Promyelocytes % (Man) 0 Blast Cells % (Manual) 0 Nucleated RBC % 0 Metamyelocytes 0 Hypochromia 1+ Platelet Estimate Increased Polychromasia 1+ Poikilocytosis 1+ Anisocytosis 3+ Microcytosis 2+ Macrocytosis 0 Tear Drop Cells 1+ PT with INR INR Sodium Potassium Chloride Carbon Dioxide Anion Gap BUN Creatinine Creat Clearance w eGFR POC Glucometer 138 Random Glucose Calcium Phosphorus Magnesium Total Bilirubin AST ALT Alkaline Phosphatase Total Protein Albumin Hepatitis A IgM Ab Negative Hep Bs Antigen Negative Hep B Core IgM Ab Negative Hepatitis C Antibody 0.1 02/04/18 02/04/18 02/04/18 12:29 16:52 21:53 WBC RBC Hgb Hct MCV MCH MCHC RDW Plt Count MPV Absolute Neuts (auto) Neutrophils % Neutrophils % (Manual) Band Neutrophils % Lymphocytes % Lymphocytes % (Manual) Monocytes % Monocytes % (Manual) Eosinophils % Eosinophils % (Manual) Basophils % Basophils % (Manual) Myelocytes % (Man) Promyelocytes % (Man) Blast Cells % (Manual) Nucleated RBC % Metamyelocytes Hypochromia Platelet Estimate Polychromasia Poikilocytosis Anisocytosis Microcytosis Macrocytosis Tear Drop Cells PT with INR INR Sodium Potassium Chloride Carbon Dioxide Anion Gap BUN Creatinine Creat Clearance w eGFR POC Glucometer 128 152 127 Random Glucose Calcium Phosphorus Magnesium Total Bilirubin AST ALT Alkaline Phosphatase Total Protein Albumin Hepatitis A IgM Ab Hep Bs Antigen Hep B Core IgM Ab Hepatitis C Antibody 02/05/18 02/05/18 02/05/18 05:19 06:00 06:00 WBC 9.5 RBC 3.94 Hgb 9.0 L Hct 29.3 L MCV 74.4 L MCH 22.8 L MCHC 30.6 L RDW 28.4 H Plt Count 562 H MPV 6.4 L Absolute Neuts (auto) 5.0 Neutrophils % Imaging Tech Neutrophils % (Manual) Band Neutrophils % Lymphocytes % Imaging Tech Lymphocytes % (Manual) Monocytes % Imaging Tech Monocytes % (Manual) Eosinophils % Imaging Tech Eosinophils % (Manual) Basophils % Imaging Tech Basophils % (Manual) Myelocytes % (Man) Promyelocytes % (Man) Blast Cells % (Manual) Nucleated RBC % 0 Metamyelocytes Hypochromia Platelet Estimate Polychromasia Poikilocytosis Anisocytosis Microcytosis Macrocytosis Tear Drop Cells PT with INR 13.40 H INR 1.13 H Sodium Potassium Chloride Carbon Dioxide Anion Gap BUN Creatinine Creat Clearance w eGFR POC Glucometer 59 Random Glucose Calcium Phosphorus Magnesium Total Bilirubin AST ALT Alkaline Phosphatase Total Protein Albumin Hepatitis A IgM Ab Hep Bs Antigen Hep B Core IgM Ab Hepatitis C Antibody 02/05/18 02/05/18 02/05/18 06:00 06:44 08:05 WBC RBC Hgb Hct MCV MCH MCHC RDW Plt Count MPV Absolute Neuts (auto) Neutrophils % Neutrophils % (Manual) Band Neutrophils % Lymphocytes % Lymphocytes % (Manual) Monocytes % Monocytes % (Manual) Eosinophils % Eosinophils % (Manual) Basophils % Basophils % (Manual) Myelocytes % (Man) Promyelocytes % (Man) Blast Cells % (Manual) Nucleated RBC % Metamyelocytes Hypochromia Platelet Estimate Polychromasia Poikilocytosis Anisocytosis Microcytosis Macrocytosis Tear Drop Cells PT with INR INR Sodium 136 Potassium 4.3 Chloride 102 Carbon Dioxide 27 Anion Gap 6 L BUN 25 H Creatinine 2.4 H Creat Clearance w eGFR 21.64 POC Glucometer 136 115 Random Glucose 118 H Calcium 8.1 L Phosphorus 4.4 Magnesium 2.4 Total Bilirubin 0.3 AST 97 H ALT 124 H Alkaline Phosphatase 338 H Total Protein 6.4 Albumin 2.2 L Hepatitis A IgM Ab Hep Bs Antigen Hep B Core IgM Ab Hepatitis C Antibody Active Medications Generic Name Dose Route Start Last Admin Trade Name Freq PRN Reason Stop Dose Admin Amlodipine Besylate 10 mg 02/01/18 10:00 02/04/18 10:59 Norvasc - PO 10 mg DAILY MELINDA Administration Benzocaine/Menthol 1 each 02/01/18 16:57 02/02/18 21:30 Cepacol Lozenge - MM 1 each Q4H PRN Administration SORE THROAT Bisacodyl 10 mg 02/01/18 21:39 Dulcolax Suppository - [place] PRN PRN CONSTIPATION Dexamethasone Sodium Phosphate 4 mg 01/31/18 16:31 Decadron Injection - IVPUSH ONCE PRN NAUSEA AND/OR VOMITING Diphenhydramine HCl 12.5 mg 01/31/18 16:31 Benadryl Injection - IVPUSH ONCE PRN FOR ITCHING Diphenhydramine HCl 25 mg 02/03/18 05:57 02/05/18 01:20 Benadryl - PO 25 mg Q6H PRN Administration ITCHING Docusate Sodium 100 mg 02/01/18 21:38 02/03/18 21:20 Colace - PO 100 mg BID PRN Administration CONSTIPATION Enoxaparin Sodium 40 mg 02/01/18 10:00 02/04/18 10:55 Lovenox - SQ 40 mg DAILY MELINDA Administration Hydrochlorothiazide 50 mg 02/02/18 10:00 02/04/18 10:57 Hctz - PO 50 mg DAILY MELINDA Administration Hydromorphone HCl 2 mg 02/04/18 06:04 02/05/18 08:25 Dilaudid - PO 2 mg Q4H PRN Administration PAIN SCALE 4-10 Insulin Aspart 1 vial 02/05/18 07:31 Novolog Vial Sliding Scale - SQ ACHS [facility] Protocol Insulin Detemir 30 units 02/04/18 08:32 02/04/18 21:59 Levemir Vial SQ 30 units BID MELINDA Administration Lisinopril 20 mg 01/31/18 22:00 02/04/18 21:50 Prinivil PO 20 mg BID MELINDA Administration Magnesium Hydroxide 30 ml 02/05/18 08:34 Milk Of Magnesia - PO DAILY PRN CONSTIPATION Ondansetron HCl 4 mg 01/31/18 18:38 Zofran Injection IVPUSH Q6H PRN NAUSEA Polyethylene Glycol 17 gm 02/04/18 10:00 02/04/18 21:49 Miralax (For Daily Use) - PO 17 gm BID MELINDA Administration Promethazine HCl 12.5 mg 01/31/18 16:31 Phenergan Injection - IVPB Q6H PRN NAUSEA AND/OR VOMITING Senna 2 tab 02/03/18 21:41 02/05/18 01:20 Senna - PO 2 tab HS PRN Administration CONSTIPATION ASSESSMENT/PLAN: 47 y.o female with PMH of DM, HTB, fibroids, CKD stage 3, who is s/p elective hysterectomy found to have fevers and elevated LFTS post op. POD#5 -patient has been afebrile since the night before last night and WBC is trending down -patient is ambulating -encourage incentive spirometery -monitor WBC count; no longer on abx was per ID -Bowel regimen-pt still not having BM but passing flatus -Zofran PRN for nausea - #Transaminitis - LFTS trending down this morning: AST 97 ALT 124 from 977; 414 posr-op -hep panel pending -GI saw patient f/u recs likely 2/2 anesthesia and post-op reactive transaminitis/hypotension *instructed patient to follow up with PCP in one week and have her liver enzymes checked within one week #DM patient had another hypoglycemic episode O/N which resolved with orange juice ( went from 56 to 113) -ISS;decreased the sliding scal;e -decreased levemir to 20 units BID -BGMS ACHS *instructed patient that we were decreasing her levemir dosing and ISS; told her to check her sugars before each meal and to log them and bring them into her PCP within one week #HTN - c/w home medications #CKD -baseline Cr 2.1; today was 2.4 -monitor CMP -nephro on board *instructed patient to haver a CMP in order to check both her liver enzymes and kidney function #Anemia -latset HGb was 9.0 this Am -cont to monitor *repeat within one week F/E/N not on fluids monitor CMP diabetic diet *we will be signing off. thank you for this consultative opportunity please call us back if needed. Problem List - Problems (1) Fever Code(s): R50.9 - FEVER, UNSPECIFIED (2) S/P abdominal hysterectomy Code(s): Z90.710 - ACQUIRED ABSENCE OF BOTH CERVIX AND UTERUS (3) Transaminitis Code(s): R74.0 - NONSPEC ELEV OF LEVELS OF TRANSAMNS & LACTIC ACID DEHYDRGNSE (4) Anemia Code(s): D64.9 - ANEMIA, UNSPECIFIED Qualifiers: Anemia type: other cause Other causes of anemia: other cause, not classified Qualified Code(s): D64.89 - Other specified anemias Visit type - Emergency Visit Emergency Visit: Yes ED Registration Date: 01/31/18 Care time: The patient presented to the Emergency Department on the above date and was hospitalized for further evaluation of their emergent condition. - New Patient This patient is new to me today: No - Critical Care Critical Care patient: No
--- NOTE | 2018-02-05 09:16 | PN ---
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 no BM CBC, BMP 02/05/18 06:00 02/05/18 06:00 Last Vital Signs Temp Pulse Resp BP Pulse Ox 99.5 F 85 20 135/76 97 02/05/18 08:14 02/05/18 08:14 02/05/18 08:17 02/05/18 08:14 02/05/18 08:17 Last Vital Signs Temp Pulse Resp BP Pulse Ox 99.5 F 85 20 135/76 97 02/05/18 08:14 02/05/18 08:14 02/05/18 08:17 02/05/18 08:14 02/05/18 08:17 abdomen soft, no distension. BS are present incision dry, clean no calf tenderness impression. afebrile , wbc coming down plan cont iv antibiotic for 24 hr more and revaluate no BM ,will give MOM
[2018-02-05] MEDS: INSULIN (LEVEMIR) 100 UNITS/ML UNITS SQ SCH ×4 (10:00→21:27)
[2018-02-05] MEDS: amLODIPine BESYLATE 10 MG TABLET (FP) PO SCH (10:04)
[2018-02-05] MEDS: HYDROCHLOROTHIAZIDE 25 MG TABLET (FP) PO SCH (10:05)
[2018-02-05] MEDS: LISINOPRIL 20 MG TABLET (FP) PO SCH ×3 (10:07→21:28)
[2018-02-05] MEDS: ENOXAPARIN NA (PORCINE) 40 MG/0.4 ML DISP.SYRIN SQ SCH (10:07)
[2018-02-05] MEDS: POLYETHYLENE GLYCOL 3350 119 GM BTL PO SCH ×3 (10:08→21:28)
[2018-02-05] MEDS ORDERED: oxyCODONE HCL 5 MG TABLET PO PRN (10:26)
[2018-02-05] MEDS ORDERED: ONDANSETRON 4 MG/2 ML VIAL IVPUSH PRN (10:26)
[2018-02-05 10:28] LABS: ANISOCYTOSIS 1+; MACROCYTOSIS 1+; PLATELET ESTIMATE INCREASED
[2018-02-05] MEDS ORDERED: ELECTROLYTE-148 SOLN 1,000 ML IV SCH (10:30)
[2018-02-05] MEDS: INSULIN SLIDING SCALE (NOVOLOG) 1 VIAL SQ SCH ×3 (11:00→21:28)
--- NOTE | 2018-02-05 11:33 | PN ---
Teaching Attending Note Name of Resident: Marla Hernandez ATTENDING PHYSICIAN STATEMENT I saw and evaluated the patient. I reviewed the resident's note and discussed the case with the resident. I agree with the resident's findings and plan as documented. SUBJECTIVE:had episode of dizzyness and shakiness early this AM. Sugar was checked and in the 50's resolved with OJ. deneis CP, SOB, fever, chills, N/V/C/D OBJECTIVE: Last Vital Signs Temp Pulse Resp BP Pulse Ox 99.5 F 85 20 135/76 97 02/05/18 08:14 02/05/18 08:14 02/05/18 08:17 02/05/18 08:14 02/05/18 08:17 General NAD ASSESSMENT AND PLAN: 47 yo F with PMhx of IDDM, HTN, morbid obesity, uterine fibroids, ?CHF, anemia, CKD stage III (baseline cr around 2) admitted for elective hysterectomy, post operative course complicated by fevers and abnormal LFTs. 1. Uterine fibroids- s/p elective Hysterectomy for uterine fibroids 01/31. tolerated surgery well. 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 Acute transaminitis- likely due to anesthesia and shannan-operatively hypotension. now improved. u/s normal. hold statin at this time. should have labs repeated in a week to evaluate for resolution 3. Fever- afebrile. no leukocytosis. off abx for 24H. all cx negative. would continue to hold 4. Acute on CKD- due to hypotnesion. improving. close to baseline. avoid nephrototoxic agents. should have labs repeatd in a week 5. Hypoglycemia- pt states she eats poorly at home and sugars are in the mid 200 's on her home regimen. levemir and iss based on sugars (BGM 150's takes 5 units , etc). here overly controlled. 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 would reduce levemir to 20 units BID, lower iss. encouraged patient to improve on diet. take sugar log and bring with her to next PMD appt for further insulin adjustment 6. HTN- controlled 7. Anemia- s/p 2 units PRBC here. now stable. no signs of bleeding 8. obesity- advised lifestyle changes. bariatric referal 9. Possible d/c later today by primary team. thank you for this consultative opportunity. will sign off at this time. please re-consult if needed
--- NOTE | 2018-02-05 12:21 | PN ---
Progress Note, Physician History of Present Illness: Pt seen and examined at bedside. She is awake and alert. She denies shortness of breath. - Current Medication List Current Medications: Active Medications Amlodipine Besylate (Norvasc -) 10 mg PO DAILY [facility] Last Admin: 02/05/18 10:04 Dose: 10 mg Benzocaine/Menthol (Cepacol Lozenge -) 1 each MM Q4H PRN PRN Reason: SORE THROAT Last Admin: 02/02/18 21:30 Dose: 1 each Bisacodyl (Dulcolax Suppository -) 10 mg ND PRN PRN PRN Reason: CONSTIPATION Dexamethasone Sodium Phosphate (Decadron Injection -) 4 mg IVPUSH ONCE PRN PRN Reason: NAUSEA AND/OR VOMITING Diphenhydramine HCl (Benadryl Injection -) 12.5 mg IVPUSH ONCE PRN PRN Reason: FOR ITCHING Diphenhydramine HCl (Benadryl -) 25 mg PO Q6H PRN PRN Reason: ITCHING Last Admin: 02/05/18 01:20 Dose: 25 mg Docusate Sodium (Colace -) 100 mg PO BID PRN PRN Reason: CONSTIPATION Last Admin: 02/03/18 21:20 Dose: 100 mg Enoxaparin Sodium (Lovenox -) 40 mg SQ DAILY [facility] Last Admin: 02/05/18 10:07 Dose: 40 mg Hydrochlorothiazide (Hctz -) 50 mg PO DAILY [facility] Last Admin: 02/05/18 10:05 Dose: 50 mg Hydromorphone HCl (Dilaudid -) 2 mg PO Q4H PRN PRN Reason: PAIN SCALE 4-10 Last Admin: 02/05/18 08:25 Dose: 2 mg Insulin Aspart (Novolog Vial Sliding Scale -) 1 vial SQ ACHS [facility]; Protocol Insulin Detemir (Levemir Vial) 20 units SQ BID [facility] Lisinopril (Prinivil) 20 mg PO BID [facility] Last Admin: 02/05/18 10:07 Dose: 20 mg Magnesium Hydroxide (Milk Of Magnesia -) 30 ml PO DAILY PRN PRN Reason: CONSTIPATION Ondansetron HCl (Zofran Injection) 4 mg IVPUSH Q6H PRN PRN Reason: NAUSEA Polyethylene Glycol (Miralax (For Daily Use) -) 17 gm PO BID [facility] Last Admin: 02/05/18 10:08 Dose: 17 gm Promethazine HCl (Phenergan Injection -) 12.5 mg IVPB Q6H PRN PRN Reason: NAUSEA AND/OR VOMITING Senna (Senna -) 2 tab PO HS PRN PRN Reason: CONSTIPATION Last Admin: 02/05/18 01:20 Dose: 2 tab - Objective Vital Signs: Vital Signs Temperature 99.5 F 02/05/18 08:14 Pulse Rate 85 02/05/18 08:14 Respiratory Rate 20 02/05/18 08:17 Blood Pressure 135/76 02/05/18 08:14 O2 Sat by Pulse Oximetry (%) 97 02/05/18 08:17 Constitutional: Yes: Calm Eyes: Yes: Conjunctiva Clear HENT: Yes: Atraumatic Neck: Yes: Supple Cardiovascular: Yes: S1, S2 Respiratory: Yes: CTA Bilaterally Gastrointestinal: Yes: Normal Bowel Sounds, Soft Genitourinary: Yes: WNL Musculoskeletal: Yes: WNL Edema: Yes Edema: LLE: Trace, RLE: Trace Neurological: Yes: Oriented Psychiatric: Yes: Oriented Labs: CBC, BMP 02/05/18 06:00 02/05/18 06:00 INR, PTT INR 1.13 (0.83-1.09) H 02/05/18 06:00 Problem List - Problems (1) Anemia Code(s): D64.9 - ANEMIA, UNSPECIFIED Qualifiers: Anemia type: other cause Other causes of anemia: other cause, not classified Qualified Code(s): D64.89 - Other specified anemias (2) CKD (chronic kidney disease) Code(s): N18.9 - CHRONIC KIDNEY DISEASE, UNSPECIFIED (3) Fibroid (bleeding) (uterine) Code(s): D25.9 - LEIOMYOMA OF UTERUS, UNSPECIFIED Qualifiers: Uterine leiomyoma location: submucous Qualified Code(s): D25.0 - Submucous leiomyoma of uterus (4) Type 1 diabetes Code(s): E10.9 - TYPE 1 DIABETES MELLITUS WITHOUT COMPLICATIONS Assessment/Plan Current Medications Generic Name Dose Route Start Last Admin Trade Name Freq PRN Reason Stop Dose Admin Amlodipine Besylate 10 mg 02/01/18 10:00 02/05/18 10:04 Norvasc - PO 10 mg DAILY [facility] Administration Benzocaine/Menthol 1 each 02/01/18 16:57 02/02/18 21:30 Cepacol Lozenge - MM 1 each Q4H PRN Administration SORE THROAT Bisacodyl 10 mg 02/01/18 21:39 Dulcolax Suppository - ND PRN PRN CONSTIPATION Dexamethasone Sodium Phosphate 4 mg 01/31/18 16:31 Decadron Injection - IVPUSH ONCE PRN NAUSEA AND/OR VOMITING Diphenhydramine HCl 12.5 mg 01/31/18 16:31 Benadryl Injection - IVPUSH ONCE PRN FOR ITCHING Diphenhydramine HCl 25 mg 02/03/18 05:57 02/05/18 01:20 Benadryl - PO 25 mg Q6H PRN Administration ITCHING Docusate Sodium 100 mg 02/01/18 21:38 02/03/18 21:20 Colace - PO 100 mg BID PRN Administration CONSTIPATION Enoxaparin Sodium 40 mg 02/01/18 10:00 02/05/18 10:07 Lovenox - SQ 40 mg DAILY MELINDA Administration Hydrochlorothiazide 50 mg 02/02/18 10:00 02/05/18 10:05 Hctz - PO 50 mg DAILY MELINDA Administration Hydromorphone HCl 2 mg 02/04/18 06:04 02/05/18 08:25 Dilaudid - PO 2 mg Q4H PRN Administration PAIN SCALE 4-10 Insulin Aspart 1 vial 02/05/18 07:31 Novolog Vial Sliding Scale - SQ ACHS [facility] Protocol Insulin Detemir 20 units 02/05/18 22:00 Levemir Vial SQ BID [facility] Lisinopril 20 mg 01/31/18 22:00 02/05/18 10:07 Prinivil PO 20 mg BID MELINDA Administration Magnesium Hydroxide 30 ml 02/05/18 08:34 Milk Of Magnesia - PO DAILY PRN CONSTIPATION Ondansetron HCl 4 mg 01/31/18 18:38 Zofran Injection IVPUSH Q6H PRN NAUSEA Polyethylene Glycol 17 gm 02/04/18 10:00 02/05/18 10:08 Miralax (For Daily Use) - PO 17 gm BID MELINDA Administration Promethazine HCl 12.5 mg 01/31/18 16:31 Phenergan Injection - IVPB Q6H PRN NAUSEA AND/OR VOMITING Senna 2 tab 02/03/18 21:41 02/05/18 01:20 Senna - PO 2 tab HS PRN Administration CONSTIPATION Microbiology 02/02/18 22:40 Urine - Urine Clean Catch Urine Culture - Preliminary No growth. 02/02/18 21:53 Blood - Peripheral Venous Blood Culture - Preliminary NO GROWTH OBTAINED AFTER 48 HOURS, INCUBATION TO CONTINUE FOR 3 DAYS. 02/02/18 21:53 Blood - Peripheral Venous Blood Culture - Preliminary NO GROWTH OBTAINED AFTER 48 HOURS, INCUBATION TO CONTINUE FOR 3 DAYS. Impression 1. CKD 2. anemia 3. DM 4. HTN 5. obesity 6. fibroids 7. ovarian cysts 8. diabetic retinopathy 9. s/p hysterectomy 10. fever Plan - no great change in renal function - cultures remain negative - will see in office, she says she will come for farhad - incentive spirometer - avoid nsaids - monitor hg - will follow PRN Dr Sanchez
[2018-02-05] MEDS: MAGNESIUM HYDROX 2400MG/30ML ORAL SUSPENSION 30 ML CUP PO PRN ×2 (12:32→16:20)
--- NOTE | 2018-02-05 17:45 | PATH ---
Surgical Pathology Report Patient Name: TO [facility]ECT[facility]. Rec. 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 Specimen(s) Received UTERUS WITH BILATERAL TUBES AND OVARIES Clinical History Intramural leiomyoma of uterus Final Diagnosis UTERUS, LEFT AND RIGHT, FALLOPIAN TUBES AND OVARIES, SUPRACERVICAL ABDOMINAL HYSTERECTOMY AND BILATERAL SALPINGO-OOPHORECTOMY: INTRAMURAL AND SUBSEROSAL LEIOMYOMA(TA) WITH DEGENERATIVE CHANGES. PROLIFERATIVE ENDOMETRIUM. MYOMETRIUM WITH ADENOMYOSIS. UNREMARKABLE ENDOCERVIX. LEFT OVARY WITH HEMORRHAGIC CORPUS LUTEUM CYST AND FOCAL ENDOSALPINGIOSIS. LEFT FALLOPIAN TUBE WITH ADHESIONS AND FOCAL ENDOMETRIOSIS. RIGHT OVARY WITH FOLLICULAR CYST. RIGHT FALLOPIAN TUBE WITH ADHESIONS. Comment: Immunohistochemical stain performed at [place], [place] ([id number]) and interpreted at [facility] show focal endometrial stroma in the left fallopian tube is highlighted by CD10, supportive of endometriosis. Electronically Signed Jacqueline Lopes M.D. Gross Description Received in formalin labeled "uterus, left and right fallopian tube, left and right ovaries," is a 588 g supracervically amputated uterus with bilateral attached adnexa. The serosa is robles-pink and smooth with focal bulging subserosal nodules. The specimen measures 11.5 cm from superior to inferior, 10.5 cm from left to right and 8.5 cm from anterior to posterior. The endometrial cavity measures 8 cm in length and 5.5 cm from cornu to cornu. The endometrium is robles and measures up to 0.2 cm in thickness. The myometrium displays multiple intramural nodules, measuring up to 3.7 cm in greatest dimension. The cut surface of the subserosal and intramural nodules is robles and rubbery with whorled architecture. The myometrium is robles, firm and trabeculated with foci of pinpoint hemorrhage, consistent with adenomyosis. The myometrium measures up to 5 cm in thickness. The left fimbriated fallopian tube measures 5.5 cm in length. The outer surface is robles addison with adhesions. Sectioning reveals an unremarkable lumen. The left cystic-appearing ovary measures 5.5 x 4.0 x 2.0 cm. The outer surface is robles-yellow, convoluted and smooth. Sectioning reveals a 4.0 cm in greatest dimension hemorrhagic cyst. The remaining ovarian parenchyma is robles-yellow and unremarkable. The right fimbriated fallopian tube measures 4 cm in length. The outer surface is hernandez purple with adhesions. Sectioning reveals an unremarkable lumen. The right cystic-appearing ovary measures 4.5 x 3.5 x 3.2 cm. The outer surface is robles-yellow and smooth. Sectioning reveals a 3.4 cm in greatest dimension cyst containing clear serous fluid. The inner lining of the cyst is smooth. The remaining ovarian parenchyma is robles-yellow and unremarkable. Calender Roll Press Operator sections are submitted in 20 cassettes as follows: 1-cervical stump margin of resection; 5-3-nsraqlbq endomyometrium; 0-7-gfylmpjvg endomyometrium; 6-subserosal nodules; 7-largest intramural nodule; 4-9-ubkwfoaeou intramural nodules; 10-left fallopian tube fimbria; 11-cross sections of left fallopian tube; 12-13-left ovarian hemorrhagic cyst; 14-left ovarian parenchyma; 15- right fallopian tube fimbria; 16-cross sections of right fallopian tube; 17-18-right ovarian serous cyst; 19-20-right ovarian parenchyma. 02/01/201802/01/2018
[2018-02-06] MEDS: HYDROmorphone HCL 2 MG TABLET PO PRN ×2 (01:45→06:20)
[2018-02-06] MEDS: INSULIN SLIDING SCALE (NOVOLOG) 1 VIAL SQ SCH ×2 (06:13→10:45)
[2018-02-06 07:43] LABS: HEMATOCRIT 30.2 % (32.4-45.2); HEMOGLOBIN 9.1 GM/dL (10.7-15.3); MCH 22.5 pg (25.7-33.7); MCHC 30.1 g/dl (32.0-36.0); MEAN CELL VOLUME 74.8 fl (80-96); MEAN PLT VOLUME 6.6 fl (7.5-11.1); PLATELET COUNT 588 K/MM3 (134-434); RBC 4.04 M/mm3 (3.60-5.2); RDW 28.8 % (11.6-15.6)
[2018-02-06 08:21] LABS: ANION GAP 9 MMOL/L (8-16); BLOOD UREA NITROGEN 24 mg/dL (7-18); CALCIUM 8.3 mg/dL (8.5-10.1); CHLORIDE 101 mmol/L (98-107); CO2 26 mmol/L (21-32); CREATININE 2.3 mg/dL (0.55-1.3); GLUCOSE,RANDOM 101 mg/dL (74-106); POTASSIUM 4.8 mmol/L (3.5-5.1); SODIUM 136 mmol/L (136-145)
[2018-02-06 08:47] LABS: SGOT/AST 201 U/L (15-37); SGPT/ALT 151 U/L (13-61)
[2018-02-06] MEDS: INSULIN (LEVEMIR) 100 UNITS/ML UNITS SQ SCH (09:00)
--- NOTE | 2018-02-06 10:14 | PN ---
Progress Note (short form) - Note Progress Note: pod 6 no c/o had BM, no chills , has mild incisional pain CBC, BMP 02/06/18 07:14 02/06/18 07:14 Last Vital Signs Temp Pulse Resp BP Pulse Ox 98.5 F 83 20 128/61 98 02/06/18 06:00 02/05/18 21:00 02/05/18 21:00 02/05/18 21:00 02/05/18 21:00 abdomen soft, no distension, no cva , no RUQ tenderness incision healing well, no discharge no calf tenderness plan d/c home, follow up office 2 weeks, follow up with PCP, GI, and renal patient will make appointment
[2018-02-06] MEDS: HYDROCHLOROTHIAZIDE 25 MG TABLET (FP) PO SCH (10:23)
[2018-02-06] MEDS: amLODIPine BESYLATE 10 MG TABLET (FP) PO SCH (10:23)
[2018-02-06] MEDS: POLYETHYLENE GLYCOL 3350 119 GM BTL PO SCH (10:24)
[2018-02-06] MEDS: LISINOPRIL 20 MG TABLET (FP) PO SCH (10:24)
[2018-02-06] MEDS: ENOXAPARIN NA (PORCINE) 40 MG/0.4 ML DISP.SYRIN SQ SCH (10:27)
[2018-02-06 10:38] VITALS: BP 131/69; PULSE 97; TEMP 98.3
--- NOTE | 2018-02-06 10:46 | PN ---
Progress Note, Physician History of Present Illness: Pt seen and examined at bedside. She is awake and alert. She is eager to go home. She denies dysuria. - Current Medication List Current Medications: Active Medications Amlodipine Besylate (Norvasc -) 10 mg PO DAILY [facility] Last Admin: 02/06/18 10:23 Dose: 10 mg Benzocaine/Menthol (Cepacol Lozenge -) 1 each MM Q4H PRN PRN Reason: SORE THROAT Last Admin: 02/02/18 21:30 Dose: 1 each Bisacodyl (Dulcolax Suppository -) 10 mg AK PRN PRN PRN Reason: CONSTIPATION Dexamethasone Sodium Phosphate (Decadron Injection -) 4 mg IVPUSH ONCE PRN PRN Reason: NAUSEA AND/OR VOMITING Diphenhydramine HCl (Benadryl Injection -) 12.5 mg IVPUSH ONCE PRN PRN Reason: FOR ITCHING Diphenhydramine HCl (Benadryl -) 25 mg PO Q6H PRN PRN Reason: ITCHING Last Admin: 02/05/18 01:20 Dose: 25 mg Docusate Sodium (Colace -) 100 mg PO BID PRN PRN Reason: CONSTIPATION Last Admin: 02/03/18 21:20 Dose: 100 mg Enoxaparin Sodium (Lovenox -) 40 mg SQ DAILY [facility] Last Admin: 02/06/18 10:27 Dose: 40 mg Hydrochlorothiazide (Hctz -) 50 mg PO DAILY [facility] Last Admin: 02/06/18 10:23 Dose: 50 mg Hydromorphone HCl (Dilaudid -) 2 mg PO Q4H PRN PRN Reason: PAIN SCALE 4-10 Last Admin: 02/06/18 06:20 Dose: 2 mg Insulin Aspart (Novolog Vial Sliding Scale -) 1 vial SQ [facility]; Protocol Last Admin: 02/06/18 06:13 Dose: Not Given Insulin Detemir (Levemir Vial) 20 units SQ BID [facility] Last Admin: 02/06/18 09:00 Dose: 20 units Lisinopril (Prinivil) 20 mg PO BID [facility] Last Admin: 02/06/18 10:24 Dose: 20 mg Magnesium Hydroxide (Milk Of Magnesia -) 30 ml PO DAILY PRN PRN Reason: CONSTIPATION Last Admin: 02/05/18 16:20 Dose: 30 ml Ondansetron HCl (Zofran Injection) 4 mg IVPUSH Q6H PRN PRN Reason: NAUSEA Polyethylene Glycol (Miralax (For Daily Use) -) 17 gm PO BID MELINDA Last Admin: 02/06/18 10:24 Dose: Not Given Promethazine HCl (Phenergan Injection -) 12.5 mg IVPB Q6H PRN PRN Reason: NAUSEA AND/OR VOMITING Senna (Senna -) 2 tab PO HS PRN PRN Reason: CONSTIPATION Last Admin: 02/05/18 01:20 Dose: 2 tab - Objective Vital Signs: Vital Signs Temperature 98.3 F 02/06/18 10:00 Pulse Rate 97 H 02/06/18 10:00 Respiratory Rate 18 02/06/18 10:00 Blood Pressure 131/69 02/06/18 10:00 O2 Sat by Pulse Oximetry (%) 98 02/05/18 21:00 Constitutional: Yes: Calm Eyes: Yes: Conjunctiva Clear HENT: Yes: Atraumatic Neck: Yes: Supple Cardiovascular: Yes: S1, S2 Respiratory: Yes: CTA Bilaterally Gastrointestinal: Yes: Soft Genitourinary: Yes: WNL Musculoskeletal: Yes: WNL Edema: LLE: Trace, RLE: Trace Neurological: Yes: Oriented Psychiatric: Yes: Oriented Labs: CBC, BMP 02/06/18 07:14 02/06/18 07:14 INR, PTT INR 1.13 (0.83-1.09) H 02/05/18 06:00 Problem List - Problems (1) Anemia Code(s): D64.9 - ANEMIA, UNSPECIFIED Qualifiers: Anemia type: other cause Other causes of anemia: other cause, not classified Qualified Code(s): D64.89 - Other specified anemias (2) CKD (chronic kidney disease) Code(s): N18.9 - CHRONIC KIDNEY DISEASE, UNSPECIFIED (3) Fibroid (bleeding) (uterine) Code(s): D25.9 - LEIOMYOMA OF UTERUS, UNSPECIFIED Qualifiers: Uterine leiomyoma location: submucous Qualified Code(s): D25.0 - Submucous leiomyoma of uterus (4) Type 1 diabetes Code(s): E10.9 - TYPE 1 DIABETES MELLITUS WITHOUT COMPLICATIONS Assessment/Plan Current Medications Generic Name Dose Route Start Last Admin Trade Name Freq PRN Reason Stop Dose Admin Amlodipine Besylate 10 mg 02/01/18 10:00 02/06/18 10:23 Norvasc - PO 10 mg DAILY MELINDA Administration Benzocaine/Menthol 1 each 02/01/18 16:57 02/02/18 21:30 Cepacol Lozenge - MM 1 each Q4H PRN Administration SORE THROAT Bisacodyl 10 mg 02/01/18 21:39 Dulcolax Suppository - AK PRN PRN CONSTIPATION Dexamethasone Sodium Phosphate 4 mg 01/31/18 16:31 Decadron Injection - IVPUSH ONCE PRN NAUSEA AND/OR VOMITING Diphenhydramine HCl 12.5 mg 01/31/18 16:31 Benadryl Injection - IVPUSH ONCE PRN FOR ITCHING Diphenhydramine HCl 25 mg 02/03/18 05:57 02/05/18 01:20 Benadryl - PO 25 mg Q6H PRN Administration ITCHING Docusate Sodium 100 mg 02/01/18 21:38 02/03/18 21:20 Colace - PO 100 mg BID PRN Administration CONSTIPATION Enoxaparin Sodium 40 mg 02/01/18 10:00 02/06/18 10:27 Lovenox - SQ 40 mg DAILY MELINDA Administration Hydrochlorothiazide 50 mg 02/02/18 10:00 02/06/18 10:23 Hctz - PO 50 mg DAILY MELINDA Administration Hydromorphone HCl 2 mg 02/04/18 06:04 02/06/18 06:20 Dilaudid - PO 2 mg Q4H PRN Administration PAIN SCALE 4-10 Insulin Aspart 1 vial 02/05/18 07:31 02/06/18 06:13 Novolog Vial Sliding Scale - SQ Not Given ACHS [facility] Protocol Insulin Detemir 20 units 02/05/18 22:00 02/06/18 09:00 Levemir Vial SQ 20 units BID MELINDA Administration Lisinopril 20 mg 01/31/18 22:00 02/06/18 10:24 Prinivil PO 20 mg BID MELINDA Administration Magnesium Hydroxide 30 ml 02/05/18 08:34 02/05/18 16:20 Milk Of Magnesia - PO 30 ml DAILY PRN Administration CONSTIPATION Ondansetron HCl 4 mg 01/31/18 18:38 Zofran Injection IVPUSH Q6H PRN NAUSEA Polyethylene Glycol 17 gm 02/04/18 10:00 02/06/18 10:24 Miralax (For Daily Use) - PO Not Given BID MELINDA Promethazine HCl 12.5 mg 01/31/18 16:31 Phenergan Injection - IVPB Q6H PRN NAUSEA AND/OR VOMITING Senna 2 tab 02/03/18 21:41 02/05/18 01:20 Senna - PO 2 tab HS PRN Administration CONSTIPATION Impression 1. CKD 2. anemia 3. DM 4. HTN 5. obesity 6. fibroids 7. ovarian cysts 8. diabetic retinopathy 9. s/p hysterectomy 10. fever Plan - will see in office for workup - avoid nsaids - pt denies fevers - will need better glucose control, she will see her pmd and an cops after discharge - discussed diet as well Dr Sanchez
--- NOTE | 2018-02-06 11:08 | PN ---
Physical Exam: SUBJECTIVE: Patient seen and examined at bedside- no acute events overnight; patient is going home today however there was a spike in her LFTS - advised patient to get them rechecked in 2-3 days however she denies any CP/SOB/NV fevers or chills OBJECTIVE: Vital Signs Period Temp Pulse Resp BP Sys/Cooper Pulse Ox Last 24 Hr 98.0 F-99.1 F 83-97 18-20 128-137/60-70 98 GENERAL: The patient is awake, alert, and fully oriented, in no acute distress. EYES: Pno scleral icterus . NECK: no JVD no lymphadenopathy LUNGS: CTA B/L; no rales, rhonchi or wheezing HEART: Regular rate and rhythm, S1, S2 without murmur, rub or gallop. ABDOMEN: Soft, slight tenderness upon palpation near surgical site EXTREMITIES: 2+ pulses, warm, well-perfused, no edema. PSYCH: Normal mood, normal affect. SKIN: Warm, dry, normal turgor, no rashes or lesions noted Laboratory Results - last 24 hr 02/05/18 02/05/18 02/05/18 06:00 11:27 16:13 WBC RBC Hgb Hct MCV MCH MCHC RDW Plt Count MPV Neutrophils % (Manual) 75.7 Band Neutrophils % 0.0 Lymphocytes % (Manual) 8.7 D Monocytes % (Manual) 5 Eosinophils % (Manual) 6.8 H Basophils % (Manual) 2.0 Myelocytes % (Man) 0 Promyelocytes % (Man) 0 Blast Cells % (Manual) 0 Metamyelocytes 0 Hypochromia 1+ Platelet Estimate Increased Polychromasia 3+ Poikilocytosis 1+ Anisocytosis 1+ Microcytosis 1+ Macrocytosis 1+ Schistocytes 1+ Sodium Potassium Chloride Carbon Dioxide Anion Gap BUN Creatinine Creat Clearance w eGFR POC Glucometer 199 214 Random Glucose Calcium AST ALT 02/05/18 02/06/18 02/06/18 20:48 06:11 07:14 WBC 9.0 RBC 4.04 Hgb 9.1 L Hct 30.2 L MCV 74.8 L MCH 22.5 L MCHC 30.1 L RDW 28.8 H Plt Count 588 H MPV 6.6 L Neutrophils % (Manual) Band Neutrophils % Lymphocytes % (Manual) Monocytes % (Manual) Eosinophils % (Manual) Basophils % (Manual) Myelocytes % (Man) Promyelocytes % (Man) Blast Cells % (Manual) Metamyelocytes Hypochromia Platelet Estimate Polychromasia Poikilocytosis Anisocytosis Microcytosis Macrocytosis Schistocytes Sodium Potassium Chloride Carbon Dioxide Anion Gap BUN Creatinine Creat Clearance w eGFR POC Glucometer 183 106 Random Glucose Calcium AST ALT 02/06/18 02/06/18 07:14 08:34 WBC RBC Hgb Hct MCV MCH MCHC RDW Plt Count MPV Neutrophils % (Manual) Band Neutrophils % Lymphocytes % (Manual) Monocytes % (Manual) Eosinophils % (Manual) Basophils % (Manual) Myelocytes % (Man) Promyelocytes % (Man) Blast Cells % (Manual) Metamyelocytes Hypochromia Platelet Estimate Polychromasia Poikilocytosis Anisocytosis Microcytosis Macrocytosis Schistocytes Sodium 136 Potassium 4.8 Chloride 101 Carbon Dioxide 26 Anion Gap 9 BUN 24 H Creatinine 2.3 H Creat Clearance w eGFR 22.73 POC Glucometer 115 Random Glucose 101 Calcium 8.3 L AST 201 H ALT 151 H Active Medications Generic Name Dose Route Start Last Admin Trade Name Freq PRN Reason Stop Dose Admin Amlodipine Besylate 10 mg 02/01/18 10:00 02/06/18 10:23 Norvasc - PO 10 mg DAILY MELINDA Administration Benzocaine/Menthol 1 each 02/01/18 16:57 02/02/18 21:30 Cepacol Lozenge - MM 1 each Q4H PRN Administration SORE THROAT Bisacodyl 10 mg 02/01/18 21:39 Dulcolax Suppository - ME PRN PRN CONSTIPATION Dexamethasone Sodium Phosphate 4 mg 01/31/18 16:31 Decadron Injection - IVPUSH ONCE PRN NAUSEA AND/OR VOMITING Diphenhydramine HCl 12.5 mg 01/31/18 16:31 Benadryl Injection - IVPUSH ONCE PRN FOR ITCHING Diphenhydramine HCl 25 mg 02/03/18 05:57 02/05/18 01:20 Benadryl - PO 25 mg Q6H PRN Administration ITCHING Docusate Sodium 100 mg 02/01/18 21:38 02/03/18 21:20 Colace - PO 100 mg BID PRN Administration CONSTIPATION Enoxaparin Sodium 40 mg 02/01/18 10:00 02/06/18 10:27 Lovenox - SQ 40 mg DAILY MELINDA Administration Hydrochlorothiazide 50 mg 02/02/18 10:00 02/06/18 10:23 Hctz - PO 50 mg DAILY MELINDA Administration Hydromorphone HCl 2 mg 02/04/18 06:04 02/06/18 06:20 Dilaudid - PO 2 mg Q4H PRN Administration PAIN SCALE 4-10 Insulin Aspart 1 vial 02/05/18 07:31 02/06/18 06:13 Novolog Vial Sliding Scale - SQ Not Given ACHS [facility] Protocol Insulin Detemir 20 units 02/05/18 22:00 02/06/18 09:00 Levemir Vial SQ 20 units BID MELINDA Administration Lisinopril 20 mg 01/31/18 22:00 02/06/18 10:24 Prinivil PO 20 mg BID MELINDA Administration Magnesium Hydroxide 30 ml 02/05/18 08:34 02/05/18 16:20 Milk Of Magnesia - PO 30 ml DAILY PRN Administration CONSTIPATION Ondansetron HCl 4 mg 01/31/18 18:38 Zofran Injection IVPUSH Q6H PRN NAUSEA Polyethylene Glycol 17 gm 02/04/18 10:00 02/06/18 10:24 Miralax (For Daily Use) - PO Not Given BID MELINDA Promethazine HCl 12.5 mg 01/31/18 16:31 Phenergan Injection - IVPB Q6H PRN NAUSEA AND/OR VOMITING Senna 2 tab 02/03/18 21:41 02/05/18 01:20 Senna - PO 2 tab HS PRN Administration CONSTIPATION ASSESSMENT/PLAN: 47 y.o female with PMH of DM, HTB, fibroids, CKD stage 3, who is s/p elective hysterectomy found to have fevers and elevated LFTS post op. POD#6 -patient has been afebrile since the night before last night and WBC is trending down -patient is ambulating -encourage incentive spirometery -monitor WBC count; no longer on abx was per ID -Bowel regimen-pt still not having BM but passing flatus -Zofran PRN for nausea - #Transaminitis - Bump in LFTS this AM- patient is being discharged today- gave prescription to get LFTS done in 2-3 days and to have them sent to her PCP Dr. Cadena and also to see him within the week #DM *instructed patient that we were decreasing her levemir dosing and ISS; told her to check her sugars before each meal and to log them and bring them into her PCP within one week #HTN - c/w home medications #CKD -baseline Cr 2.1; as -monitor CMP -nephro on board *instructed patient to have a CMP in order to check both her liver enzymes and kidney function #Anemia -latset HGb was 9.0 this Am -cont to monitor *repeat within one week patient is d/c home today *we will be signing off. thank you for this consultative opportunity please call us back if needed. Problem List - Problems (1) Fever Code(s): R50.9 - FEVER, UNSPECIFIED (2) S/P abdominal hysterectomy Code(s): Z90.710 - ACQUIRED ABSENCE OF BOTH CERVIX AND UTERUS (3) Transaminitis Code(s): R74.0 - NONSPEC ELEV OF LEVELS OF TRANSAMNS & LACTIC ACID DEHYDRGNSE (4) Anemia Code(s): D64.9 - ANEMIA, UNSPECIFIED Qualifiers: Anemia type: other cause Other causes of anemia: other cause, not classified Qualified Code(s): D64.89 - Other specified anemias Visit type - Emergency Visit Emergency Visit: Yes ED Registration Date: 01/31/18 Care time: The patient presented to the Emergency Department on the above date and was hospitalized for further evaluation of their emergent condition. - New Patient This patient is new to me today: No - Critical Care Critical Care patient: No
--- NOTE | 2018-02-06 18:54 | PN ---
Teaching Attending Note Name of Resident: Marla Hernandez ATTENDING PHYSICIAN STATEMENT I saw and evaluated the patient. I reviewed the resident's note and discussed the case with the resident. I agree with the resident's findings and plan as documented. SUBJECTIVE: Patient has no complaints. OBJECTIVE: Vital Signs Period Temp Pulse Resp BP Sys/Cooper Pulse Ox Last 24 Hr 98.3 F-99.1 F 83-97 18-20 128-131/61-69 98 HEART: S1S2, RRR LUNGS: Clear ABDOMEN: Obese, soft, non-tender, non-distended, normal BS EXTREMITIES: No edema Laboratory Results - last 24 hr 02/04/18 02/05/18 02/06/18 06:50 20:48 06:11 WBC RBC Hgb Hct MCV MCH MCHC RDW Plt Count MPV Sodium Potassium Chloride Carbon Dioxide Anion Gap BUN Creatinine Creat Clearance w eGFR POC Glucometer 183 106 Random Glucose Calcium AST ALT RAJIV Screen Negative 02/06/18 02/06/18 02/06/18 07:14 07:14 08:34 WBC 9.0 RBC 4.04 Hgb 9.1 L Hct 30.2 L MCV 74.8 L MCH 22.5 L MCHC 30.1 L RDW 28.8 H Plt Count 588 H MPV 6.6 L Sodium 136 Potassium 4.8 Chloride 101 Carbon Dioxide 26 Anion Gap 9 BUN 24 H Creatinine 2.3 H Creat Clearance w eGFR 22.73 POC Glucometer 115 Random Glucose 101 Calcium 8.3 L AST 201 H ALT 151 H RAJIV Screen ASSESSMENT AND PLAN: This is a 47 year old woman with a history of type 2 DM, HTN, obesity, uterine fibroids, possible CHF, anemia, stage 3 CKD who developed fever and abnormal LFTs after elective hysterectomy. 1. Uterine fibroids with metromenorrhagia - s/p hysterectomy 01/31 2. Hepatic transaminitis - Possibly secondary to anesthesia, perioperative hypotension - Lipitor held - US shows mild fatty infiltration of liver - Hep A IgM, HBsAg, HBcAb, hep C AB negative - RAJIV negative - Ok for discharge with outpatient follow up - would repeat LFTs in 2-3 days 3. Post-op fever - Resolved 4. Acute kidney injury - Possibly secondary to hypotension - Resolved 5. Stage 4 CKD 6. Type 2 DM with hypoglycemia - Continue Levemir, Novolog sliding scale - dosing adjusted for hypoglycemia 7. HTN - Continue Norvasc, Lisinopril, HCTZ 8. Iron deficiency anemia secondary to metromenorrhagia - Transfused 2 units PRBCs this admission 9. Obesity with BMI 36.8
--- NOTE | 2018-02-08 19:55 | DS ---
Physical Exam-TREATMENT TECHNICIAN Vital Signs: Vital Signs Temperature 98.3 F 02/06/18 10:00 Pulse Rate 97 H 02/06/18 10:00 Respiratory Rate 18 02/06/18 10:00 Blood Pressure 131/69 02/06/18 10:00 O2 Sat by Pulse Oximetry (%) 98 02/05/18 21:00 Constitutional: Yes: Well Nourished, No Distress, Calm Eyes: Yes: WNL, Conjunctiva Clear, EOM Intact HENT: Yes: WNL, Atraumatic, Normocephalic Neck: Yes: WNL, Supple, Trachea Midline Cardiovascular: Yes: WNL, Regular Rate and Rhythm Respiratory: Yes: WNL, Regular, CTA Bilaterally Gastrointestinal: Yes: WNL ...Rectal Exam: Yes: WNL Renal/: Yes: WNL Vaginal Exam: Yes: Normal Cervix: Yes: Normal Uterus: Yes: Enlarged, Firm, Lumpy Breast(s): Yes: WNL Musculoskeletal: Yes: WNL Extremities: Yes: WNL Edema: No Integumentary: Yes: WNL Neurological: Yes: WNL, Alert, Oriented ...Motor Strength: WNL Psychiatric: Yes: WNL, Alert, Oriented Labs: CBC, BMP 02/06/18 07:14 02/06/18 07:14 Discharge Summary Reason For Visit: INTRAMURAL LEIOMYOMA OF UTERUS Hospital Course: txed with estradiol iv , d/[facility] home on OCP Condition: Critical - Instructions Diet, Activity, Other Instructions: diabetic diet, follow up office 2 weeks if fever, heavy vaginal bleeding call md follow up with pcp for BGM , follow up with GI for LFT evaluation Referrals: Adam Lassiter MD [Staff Physician] - Disposition: HOME - Home Medications Comprehensive Discharge Medication List: Ambulatory Orders Insulin Sliding Scale [Novolog Vial Sliding Scale -] 10 units SQ TIDCM 06/11/14 Lisinopril [Zestril] 20 mg PO BID 06/11/14 Amlodipine Besylate [Norvasc -] 10 mg PO DAILY 11/01/17 Atorvastatin Ca [Lipitor] 40 mg PO HS 11/01/17 Acetaminophen [Tylenol Arthritis] 1,300 mg PO PRN PRN 01/29/18 Hydrochlorothiazide [Hctz -] 50 mg PO DAILY 01/29/18 Insulin (Levemir) [Levemir Vial] 52 units SQ BID 01/29/18 Iron 18 mg PO TID 01/29/18 HYDROmorphone [Dilaudid -] 2 mg PO Q6H PRN #28 tablet MDD 4 02/06/18 Miscellaneous Medical Supply [Outpatient Order] 1 each [place] #1 [facility]isc[facility] Medical Supply [Outpatient Order] 1 each [place] #[place] [facility]
== END 2018-02-06 10:40 | disposition home or self-care (01) | DRG 742 ==
LOC: JSAMEDAYSX 01-31 13:01 → EDSTATUS 01-31 14:30 → J3W 01-31 21:16
PROVIDERS: ADMIT Obstetrics & Gynecology; ATTEND Obstetrics & Gynecology
PROC: 0UB20ZZ Excision of Bilateral Ovaries, Open Approach (ICD-10-PCS; 2018-01-31)
PROC: 0DNW0ZZ Release Peritoneum, Open Approach (ICD-10-PCS; 2018-01-31)
PROC: 30233N1 Transfusion of Nonautologous Red Blood Cells into Peripheral Vein, Percutaneous Approach (ICD-10-PCS; 2018-01-31)
PROC: 0UT90ZL Resection of Uterus, Supracervical, Open Approach (ICD-10-PCS; principal; 2018-01-31 14:30)
DX: D25.0 Submucous leiomyoma of uterus (principal); I13.0 Hypertensive heart and chronic kidney disease with heart failure and stage 1 through stage 4 chronic kidney disease, or unspecified chronic kidney disease; D64.9 Anemia, unspecified; N92.1 Excessive and frequent menstruation with irregular cycle; N83.202 Unspecified ovarian cyst, left side; N83.201 Unspecified ovarian cyst, right side; N73.6 Female pelvic peritoneal adhesions (postinfective); E11.319 Type 2 diabetes mellitus with unspecified diabetic retinopathy without macular edema; E11.65 Type 2 diabetes mellitus with hyperglycemia; E11.22 Type 2 diabetes mellitus with diabetic chronic kidney disease; I50.9 Heart failure, unspecified; Z89.422 Acquired absence of other left toe(s); Z89.421 Acquired absence of other right toe(s); Z79.4 Long term (current) use of insulin; Z68.36 Body mass index [BMI] 36.0-36.9, adult; R94.5 Abnormal results of liver function studies; N18.3 Chronic kidney disease, stage 3 (moderate); E66.01 Morbid (severe) obesity due to excess calories; R74.0 Nonspecific elevation of levels of transaminase and lactic acid dehydrogenase [LDH]; R50.82 Postprocedural fever; E11.649 Type 2 diabetes mellitus with hypoglycemia without coma; R16.0 Hepatomegaly, not elsewhere classified; I95.89 Other hypotension
CPT/HCPCS: 36415; 36430; 71046-TC-FY; 76700-TC; 80048; 80053; 80074; 80076; 80307; 81003; 81015; 82962; 83605; 83615; 83735; 84100; 84450; 84460; 84703; 85025; 85027; 85610; 86038; 86850; 86900; 86901; 86922; 87040; 87086; 88307-TC; 93306-TC; 94760; P9058

== ENCOUNTER 2019-04-18 21:10 | Emergency (ER) | payer OTHER ==
[2019-04-18 21:26] VITALS: BP 157/81; PULSE 90; TEMP 98.1; BMI 36.8
--- NOTE | 2019-04-18 21:26 | PDOC ---
Rapid Medical Evaluation Time Seen by Provider: 04/18/19 21:20 Medical Evaluation: Allergies Allergy/AdvReac Type Severity Reaction Status Date / Time codeine Allergy Intermediate Nausea Verified 01/29/18 17:30 04/18/19 21:23 CC: abcess to upper back PE: ~2.5cm circular fluctaunt mass between shoulder blades Orders: nothing Patient will proceed to ED for evaluation. Discharge Disposition - Diagnosis Abscess - Referrals - Patient Instructions - Post Discharge Activity
--- NOTE | 2019-04-18 22:35 | PDOC ---
History of Present Illness - General Chief Complaint: Abscess Boil Stated Complaint: ABSCESS Time Seen by Provider: 04/18/19 21:20 History Source: Patient Exam Limitations: Clinical Condition - History of Present Illness Initial Comments: 04/18/19 22:31 Patient with history of insulin-dependent diabetes presented with complaint of over week history of abscess to upper mid back which started to drain today. Patient reported presented to urgent care for abscess but was advised to come to ED due to her history of diabetes and abscess being over lower aspect of cervical spine of upper back between scapula. Patient reported having similar episode 2 years ago which was I&D and resolved. Patient reported has not been compliant with her diabetes medication for the past 3 days until today when she refilled her insulin. Denies any other symptoms Timing/Duration: reports: week (1 week) Past History - Past Medical History Allergies/Adverse Reactions: Allergies Allergy/AdvReac Type Severity Reaction Status Date / Time codeine Allergy Intermediate Nausea Verified 04/18/19 21:26 Home Medications: Ambulatory Orders Insulin Sliding Scale [Novolog Vial Sliding Scale -] 10 units SQ TIDCM 06/11/14 Lisinopril [Zestril] 20 mg PO BID 06/11/14 Amlodipine Besylate [Norvasc -] 10 mg PO DAILY 11/01/17 Atorvastatin Ca [Lipitor] 40 mg PO HS 11/01/17 Acetaminophen [Tylenol Arthritis] 1,300 mg PO PRN PRN 01/29/18 Hydrochlorothiazide [Hctz -] 50 mg PO DAILY 01/29/18 Insulin (Levemir) [Levemir Vial] 52 units SQ BID 01/29/18 Iron 18 mg PO TID 01/29/18 HYDROmorphone [Dilaudid -] 2 mg PO Q6H PRN #28 tablet MDD 4 02/06/18 Miscellaneous Medical Supply [Outpatient Order] 1 each ASDIR #1 misc Miscellaneous Medical Supply [Outpatient Order] 1 each ASDIR #1 misc Cephalexin Monohydrate [Keflex -] 500 mg PO BID 7 Days #14 capsule 04/18/19 Sulfamethoxazole/Trimethoprim [Bactrim Ds -] 1 tab PO BID #14 tablet 04/18/19 Anemia: Yes (with transfussion) Asthma: No Cancer: No Cardiac Disorders: No CVA: No COPD: No CHF: Yes (7-8yrs ago) Dementia: No Diabetes: Yes (type 1) GI Disorders: No Disorders: No HTN: Yes Hypercholesterolemia: Yes Liver Disease: No Seizures: No Thyroid Disease: No - Surgical History Abdominal Surgery: Yes (gallbladder removed) Appendectomy: No Cardiac Surgery: No Cholecystectomy: Yes Lung Surgery: No Neurologic Surgery: No Orthopedic Surgery: Yes (last toe removed on left foot; and two toes removed from right) - Immunization History Immunization Up to Date: Yes - Psycho Social/Smoking Cessation Hx Smoking History: Never smoked Have you smoked in the past 12 months: No Number of Cigarettes Smoked Daily: 10 If you are a former smoker, when did you quit?: 8yrs Hx Alcohol Use: Yes (socially- wine) Drug/Substance Use Hx: No Substance Use Type: Alcohol Hx Substance Use Treatment: No Review of Systems - Review of Systems Able to Perform ROS?: Yes Is the patient limited Occitan proficient: No Constitutional: No: Chills, Fever, Malaise HEENTM: No: Symptoms Reported, See HPI, Eye Pain, Blurred Vision, Tearing, Recent change in vision, Double Vision, Cataracts, Ear Pain, Ocular Prothesis, Ear Discharge, Nose Pain, Nose Congestion, Tinnitus, Nose Bleeding, Hearing Loss , Throat Pain, Throat Swelling, Mouth Pain, Dental Problems, Difficulty Swallowing, Mouth Swelling, Other Respiratory: No: Symptoms reported, See HPI, Cough, Orthopnea, Shortness of Breath, SOB with Exertion, SOB at Rest, Stridor, Wheezing, Productive cough, Hemoptysis, Other Cardiac (ROS): No: Symptoms Reported Musculoskeletal: Yes: Symptoms Reported, See HPI, Muscle Pain (upper back pain over abscess) Integumentary: Yes: Symptoms Reported, See HPI, Lumps (abscess to upper back) Neurological: No: Symptoms reported All Other Systems: Reviewed and Negative *Physical Exam - Vital Signs Last Vital Signs Temp Pulse Resp BP Pulse Ox 98.1 F 90 18 157/81 100 04/18/19 21:21 04/18/19 21:21 04/18/19 21:21 04/18/19 21:21 04/18/19 21:21 - Physical Exam 04/18/19 22:40 GENERAL: Well developed, well nourished. Awake and alert. No acute distress. NECK: Supple. Full ROM. PULMONARY: No evidence of respiratory distress. MUSCULOSKELETAL Normal range of motion at all joints. SKIN: Warm and dry. Normal capillary refill. 3 cm soft fluctuant induration consistent with abscess to upper mid back between scapular with tiny entry wound with no acute discharge. Mild erythema over area of previous draining entry wound to abscess. NEUROLOGICAL: Alert, awake, appropriate. Gait is normal without ataxia. PSYCHIATRIC: Cooperative. Good eye contact. Appropriate mood General Appearance: Yes: Nourished, Appropriately Dressed. No: Apparent Distress Procedures - Incision and Drainage I&D Site: Bilateral: Other (upper back) Anesthesia: 1% Lidocaine Volume(ml): 1 Blade Size: 11 Attempts: 1 Iodinated Packin in Plain Packing: Yes Complications: none Dressing: Yes Medical Decision Making - Medical Decision Making 04/18/19 22:32 Patient with history of insulin-dependent diabetes presented with complaint of over week history of abscess to upper mid back which started to drain today. Patient reported presented to urgent care for abscess but was advised to come to ED due to her history of diabetes and abscess being over lower aspect of cervical spine of upper back between scapula. Patient reported having similar episode 2 years ago which was I&D and resolved. Patient reported has not been compliant with her diabetes medication for the past 3 days until today when she refilled her insulin. Denies any other symptoms Exam significant for 3 cm area of abscess to middle of upper back between the scapula. No drainage from area. Mild localized erythema over tiny opening of abscess Abscess cleaned with Betadine and infiltrated with 1 cc 1% lidocaine. Abscess and cut into with a normal 11 blade. Purulent moderate amount of material obtained from abscess. Wound culture obtained from discharge from abscess. Wound packed with 1 inch with packing. Wound covered with 4 x 4 adhesive bandage after applying bacitracin. Patient stable for discharge on Keflex and Bactrim antibiotics with advised to follow-up in 2 days for wound packing removal and wound check Discharge - Discharge Information Problems reviewed: Yes Clinical Impression/Diagnosis: Abscess Type 1 diabetes Qualifiers: Diabetes mellitus complication status: without complication Qualified Code(s): E10.9 - Type 1 diabetes mellitus without complications Condition: Stable Disposition: HOME - Admission No - Additional Discharge Information Prescriptions: Cephalexin Monohydrate [Keflex -] 500 mg PO BID 7 Days #14 capsule Sulfamethoxazole/Trimethoprim [Bactrim Ds -] 1 tab PO BID #14 tablet - Follow up/Referral Referrals: ON STAFF,NOT [Primary Care Provider] - - Patient Discharge Instructions Patient Printed Discharge Instructions: DI for Incision and Drainage of a Skin Abscess Additional Instructions: Keep wound clean and dry for next 24 hours. Take prescribed antibiotics and finish it. Return to the ED in 2 days for wound check and packing removal. Come back earlier than 2 days if fever - Post Discharge Activity
== END 2019-04-18 22:40 | disposition home or self-care (01) ==
LOC: JERFT 21:10 → JER 21:10 → JERFT 22:40
PROC: 0J970ZZ Drainage of Back Subcutaneous Tissue and Fascia, Open Approach (ICD-10-PCS; principal; 2019-04-18)
DX: L02.212 Cutaneous abscess of back [any part, except buttock and flank] (principal); E10.9 Type 1 diabetes mellitus without complications; Z79.4 Long term (current) use of insulin; I10 Essential (primary) hypertension; E78.00 Pure hypercholesterolemia, unspecified; D64.9 Anemia, unspecified; Z90.49 Acquired absence of other specified parts of digestive tract; Z89.422 Acquired absence of other left toe(s); Z89.421 Acquired absence of other right toe(s); Z88.5 Allergy status to narcotic agent
CPT/HCPCS: 87070; 87077; 87205; 99283-25

== ENCOUNTER 2019-04-21 20:37 | Emergency (ER) | payer OTHER ==
[2019-04-21 20:45] VITALS: PULSE 89; TEMP 97.9; BMI 36.8
--- NOTE | 2019-04-21 20:46 | PDOC ---
Rapid Medical Evaluation Medical Evaluation: Allergies Allergy/AdvReac Type Severity Reaction Status Date / Time codeine Allergy Intermediate Nausea Verified 04/18/19 21:26 I have performed a brief in-person evaluation of this patient. The patient presents with a chief complaint of: is here for f/u for abscess to upper back which was drained 2 days ago; denies fever Pertinent physical exam findings: deferred I have ordered the following: BP elevated here - asymptomatic Is due for her BP meds Will order her BP meds The patient will proceed to the ED for further evaluation. 04/21/19 20:44
[2019-04-21] MEDS ORDERED: HYDROCHLOROTHIAZIDE 50 MG TABLET PO ONE (20:47)
[2019-04-21] MEDS ORDERED: LISINOPRIL 20 MG TABLET (FP) PO ONE ×2 (20:47)
[2019-04-21] MEDS ORDERED: HYDROCHLOROTHIAZIDE 25 MG TABLET (FP) ONE (20:48)
[2019-04-21] MEDS ORDERED: LISINOPRIL 20 MG TABLET (FP) ONE (20:49)
[2019-04-21] MEDS ORDERED: NIFEdipine E.R. 30 MG TABLET ONE (21:58)
[2019-04-21] MEDS ORDERED: NIFEdipine E.R. 30 MG TABLET PO ONE (22:00)
--- NOTE | 2019-04-22 00:13 | PDOC ---
Suture Removal/Wound Check HPI - History of Present Illness Chief Complaint: Suture/Staple Removal(Here) Stated Complaint: FOLLOW UP/ABSCESS Time Seen by Provider: 04/21/19 20:43 History Source: Yes: Patient Exam Limitations: Yes: No Limitations - Previous ED Treatment Type of procedure performed on last visit: Yes: I&D of Abscess - Onset of Previous Treatment Comment:: 04/22/19 00:09 This is a test 49-year-old female history of hypertension here today status post drainage of an upper back cyst/abscess. Patient states she has had packing in place has not done anything with it since then was drained 2 days ago denies any fevers or chills does have mild itching states that she did not take her blood pressure medication this evening and she usually has been taking all of her meds at the same time in the evening despite instructions to take twice daily denies any chest pain shortness of breath blurry vision or other symptoms patient was given blood pressure medication in triage On my physical exam the abscess site is clean dry and intact the packing was removed there is no surrounding erythema a small half centimeter by half centimeter wound is noted no active drainage heart and lung exam is normal with a regular rate and rhythm clear lungs bilaterally Past History - Past Medical History Allergies/Adverse Reactions: Allergies Allergy/AdvReac Type Severity Reaction Status Date / Time codeine Allergy Intermediate Nausea Verified 04/21/19 20:45 Home Medications: Ambulatory Orders Insulin Sliding Scale [Novolog Vial Sliding Scale -] 10 units SQ TIDCM 06/11/14 Lisinopril [Zestril] 20 mg PO BID 06/11/14 Amlodipine Besylate [Norvasc -] 10 mg PO DAILY 11/01/17 Atorvastatin Ca [Lipitor] 40 mg PO HS 11/01/17 Acetaminophen [Tylenol Arthritis] 1,300 mg PO PRN PRN 01/29/18 Hydrochlorothiazide [Hctz -] 50 mg PO DAILY 01/29/18 Insulin (Levemir) [Levemir Vial] 52 units SQ BID 01/29/18 Iron 18 mg PO TID 01/29/18 HYDROmorphone [Dilaudid -] 2 mg PO Q6H PRN #28 tablet MDD 4 02/06/18 Miscellaneous Medical Supply [Outpatient Order] 1 each ASDIR #1 misc 12/12/ 18 Miscellaneous Medical Supply [Outpatient Order] 1 each ASDIR #1 misc Cephalexin Monohydrate [Keflex -] 500 mg PO BID 7 Days #14 capsule 04/18/19 Sulfamethoxazole/Trimethoprim [Bactrim Ds -] 1 tab PO BID #14 tablet 04/18/19 Anemia: Yes (with transfussion) Asthma: No Cancer: No Cardiac Disorders: No CVA: No COPD: No CHF: Yes (7-8yrs ago) Dementia: No Diabetes: Yes (type 1) GI Disorders: No Disorders: No HTN: Yes Hypercholesterolemia: Yes Liver Disease: No Seizures: No Thyroid Disease: No - Surgical History Abdominal Surgery: Yes (gallbladder removed) Appendectomy: No Cardiac Surgery: No Cholecystectomy: Yes Lung Surgery: No Neurologic Surgery: No Orthopedic Surgery: Yes (last toe removed on left foot; and two toes removed from right) - Immunization History Immunization Up to Date: Yes - Psycho Social/Smoking Cessation Hx Smoking History: Never smoked Have you smoked in the past 12 months: No Number of Cigarettes Smoked Daily: 10 If you are a former smoker, when did you quit?: 8yrs Hx Alcohol Use: Yes (socially- wine) Drug/Substance Use Hx: No Substance Use Type: Alcohol Hx Substance Use Treatment: No *Review of Systems - Review of Systems Constitutional: No: Chills, Diaphoresis, Fever HEENTM: No: Eye Pain Respiratory: No: Cough, Orthopnea Cardiac (ROS): No: Chest Pain, Edema Integumentary: Yes: Other (s/p I &D) All Other Systems: Reviewed and Negative *Physical Exam - Vital Signs Last Vital Signs Temp Pulse Resp BP Pulse Ox 97.9 F 89 18 216/85 H 100 04/21/19 20:41 04/21/19 20:41 04/21/19 20:41 04/21/19 21:55 04/21/19 20:41 - Physical Exam 04/22/19 00:11 awake alert lungs clear bilat heart rrr no mrg upper back wound no active drainage. small 0.5 x 0.5 wound. Medical Decision Making - Medical Decision Making 04/22/19 00:11 s/p I &D packing removed. dc home. told to wash twice daily. also told to keep taking bp meds. 02/25/20 00:31 pt bp improving post meds given in ED 195/ 110. told to fu in 2 - 3 days for bp check and take meds as prescribed. Discharge - Discharge Information Problems reviewed: Yes Clinical Impression/Diagnosis: Wound check, abscess Disposition: HOME - Admission No - Follow up/Referral Referrals: ON STAFF,NOT [Primary Care Provider] - - Patient Discharge Instructions Patient Printed Discharge Instructions: DI for Skin Abscess Additional Instructions: you should follow up with your primary doctor for repeat blood pressure in 2 - 3 days. continue taking your blood pressure medication as prescribed. you should wash your wound with mild soap and water twice daily. return for any problems or concerns. - Post Discharge Activity
[2019-04-22 00:32] VITALS: BP 195/101
== END 2019-04-22 00:41 | disposition home or self-care (01) ==
LOC: JER 20:37
DX: Z48.817 Encounter for surgical aftercare following surgery on the skin and subcutaneous tissue (principal); Z48.01 Encounter for change or removal of surgical wound dressing; I10 Essential (primary) hypertension; E78.00 Pure hypercholesterolemia, unspecified; E10.9 Type 1 diabetes mellitus without complications; Z79.4 Long term (current) use of insulin; D64.9 Anemia, unspecified; Z89.422 Acquired absence of other left toe(s); Z89.421 Acquired absence of other right toe(s); Z88.5 Allergy status to narcotic agent; Z90.49 Acquired absence of other specified parts of digestive tract
CPT/HCPCS: 99283-25

== ENCOUNTER 2021-02-27 13:47 | Emergency (ER) | payer OTHER ==
[2021-02-27 14:27] VITALS: TEMP 99; BMI 36.0
[2021-02-27 17:35] LABS: BASO % 0.8 % (0-2.0); EOS % 0.1 % (0-4.5); HEMATOCRIT 40.4 % (32.4-45.2); LYMPH % 23.8 % (8-40); MCH 26.2 pg (25.7-33.7); MCHC 32.3 g/dl (32.0-36.0); MEAN CELL VOLUME 81.2 fl (80-96); MEAN PLT VOLUME 7.1 fl (7.5-11.1); MONO % 10.2 % (3.8-10.2); NEUT % 65.1 % (42.8-82.8); PLATELET COUNT 335 10^3/uL (134-434); RBC 4.98 M/mm3 (3.60-5.2); RDW 16.4 % (11.6-15.6); WHITE BLOOD COUNT 3.6 K/mm3 (4.0-10.0)
[2021-02-27 17:54] LABS: CHLORIDE 101 mmol/L (98-107); SODIUM 131 mmol/L (136-145)
[2021-02-27 17:56] LABS: ALBUMIN 2.6 g/dl (3.4-5.0); ANION GAP 13 MMOL/L (8-16); BLOOD UREA NITROGEN 66.5 mg/dL (7-18); CO2 17 mmol/L (21-32); GLUCOSE,RANDOM 208 mg/dL (74-106)
[2021-02-27 17:59] LABS: SGOT/AST 30 U/L (15-37); SGPT/ALT 24 U/L (13-61)
[2021-02-27 18:01] LABS: BILIRUBIN,TOTAL 0.2 mg/dL (0.2-1); TOT PROT 7.7 g/dl (6.4-8.2)
[2021-02-27 18:02] LABS: ALK PHOS 126 U/L (45-117)
[2021-02-27 18:04] LABS: CREATININE 7.7 mg/dL (0.55-1.3)
[2021-02-27] MEDS ORDERED: ONDANSETRON *ODT* 4 MG TABLET SL ONE (19:10)
[2021-02-27] MEDS ORDERED: ONDANSETRON *ODT* 4 MG TABLET ONE (20:00)
[2021-02-27] MEDS ORDERED: BAMLANIVIMAB 700 MG, ETESEVIMAB 1,400 MG in SODIUM CHLORIDE 100 ML IVPB ONE (21:20)
[2021-02-27 23:05] VITALS: BP 152/71; PULSE 85
== END 2021-02-27 23:42 | disposition home or self-care (01) ==
LOC: JER 13:47
PROC: 3E033GC Introduction of Other Therapeutic Substance into Peripheral Vein, Percutaneous Approach (ICD-10-PCS; principal; 2021-02-27)
DX: U07.1 COVID-19 (principal)
CPT/HCPCS: 36415; 80053; 82962; 85025; 99284-25; C9803-CS; Q0162; Q0245; U0003; U0005

== ENCOUNTER 2021-07-13 09:26 | Inpatient (IN) | payer OTHER ==
[2021-07-13 11:29] LABS: BASO % 0.8 % (0-2.0); EOS % 3.8 % (0-4.5); HEMATOCRIT 35.4 % (32.4-45.2); HEMOGLOBIN 11.4 GM/dL (10.7-15.3); MCH 26.8 pg (25.7-33.7); MCHC 32.3 g/dl (32.0-36.0); MEAN CELL VOLUME 83.1 fl (80-96); MEAN PLT VOLUME 6.4 fl (7.5-11.1); MONO % 7.5 % (3.8-10.2); NEUT % 74.9 % (42.8-82.8); PLATELET COUNT 427 10^3/uL (134-434); RBC 4.26 M/mm3 (3.60-5.2); RDW 17.2 % (11.6-15.6); WHITE BLOOD COUNT 9.1 K/mm3 (4.0-10.0)
[2021-07-13 11:34] LABS: INR 0.98 (0.83-1.09); PROTHROMBIN TIME (PATIENT) 11.3 SEC (9.7-13.0)
[2021-07-13 11:55] LABS: ALBUMIN 3.3 g/dl (3.4-5.0); BLOOD UREA NITROGEN 64.6 mg/dL (7-18); CALCIUM 8.8 mg/dL (8.5-10.1)
[2021-07-13 11:59] LABS: CREATININE 6.3 mg/dL (0.55-1.3)
[2021-07-13 12:00] LABS: BILIRUBIN,TOTAL 0.4 mg/dL (0.2-1); TOT PROT 7.9 g/dl (6.4-8.2)
[2021-07-13] MEDS: INSULIN SLIDING SCALE (NOVOLOG) 1 VIAL SQ SCH ×2 (16:45→21:20)
[2021-07-13] MEDS: INSULIN (NOVOLOG) ASPART 100 UNITS/ML 10ML VIAL SQ SCH (16:45)
[2021-07-14] MEDS: INSULIN (NOVOLOG) ASPART 100 UNITS/ML 10ML VIAL SQ SCH ×3 (06:18→17:41)
[2021-07-14] MEDS: INSULIN SLIDING SCALE (NOVOLOG) 1 VIAL SQ SCH ×3 (06:18→17:43)
[2021-07-14] MEDS ORDERED: LIDOCAINE HCL 1%, 10 MG/ML (20ML VIAL) ONE (07:09)
[2021-07-14] MEDS ORDERED: BUPIVACAINE HCL/PF 0.5% (5MG/ML) 10 ML VIAL ONE (07:10)
[2021-07-14] MEDS ORDERED: HEPARIN NA (PORCINE) 5,000 UNITS/ML 1ML VIAL ONE (07:10)
[2021-07-14] MEDS ORDERED: LIDOCAINE 1% P/F 10 MG/ML VIAL INF ONE ×2 (07:30)
[2021-07-14] MEDS ORDERED: HEPARIN NA (PORCINE) 5,000 UNITS/ML 1ML VIAL SQ ONE (07:30)
[2021-07-14] MEDS ORDERED: MIDAZOLAM HCL 2 MG/2 ML SINGLE DOSE VIAL ONE ×2 (07:38)
[2021-07-14] MEDS ORDERED: FENTANYL CITRATE/PF 50 MCG/ML VIAL ONE ×2 (07:39)
[2021-07-14] MEDS ORDERED: PROPOFOL 20 ML ONE ×2 (08:09)
[2021-07-14] MEDS ORDERED: ONDANSETRON 4 MG/2 ML VIAL IVPUSH PRN (08:37)
[2021-07-14] MEDS ORDERED: oxyCODONE HCL 5 MG TABLET ONE (09:38)
[2021-07-14] MEDS ORDERED: ACETAMINOPHEN 325 MG TABLET (FP) PO ONE ×2 (09:39→14:30)
[2021-07-14] MEDS ORDERED: ACETAMINOPHEN 325 MG TABLET (FP) ONE (09:39)
[2021-07-14] MEDS ORDERED: ACETAMINOPHEN 500 MG TABLET (FP) PO PRN (09:50)
[2021-07-14] MEDS ORDERED: NIFEdipine E.R. 90 MG TABLET PO SCH (10:00)
[2021-07-14] MEDS ORDERED: INSULIN (LEVEMIR) 100 UNITS/ML UNITS SQ ONE ×2 (10:00)
[2021-07-14] MEDS ORDERED: ACETAMINOPHEN 1000 MG/100 ML BAG IVPB ONE (10:09)
[2021-07-14] MEDS: NIFEdipine E.R. 90 MG TABLET PO SCH (10:44)
[2021-07-14] MEDS ORDERED: hydrALAZINE HCL 25 MG TABLET (FP) PO ONE (11:15)
[2021-07-14] MEDS ORDERED: ACETAMINOPHEN 325 MG TABLET (FP) PO PRN (11:20)
[2021-07-14] MEDS ORDERED: SODIUM CHLORIDE 250 ML IV PRN (14:30)
[2021-07-14] MEDS ORDERED: hydrALAZINE HCL 50 MG TABLET (FP) PO ONE (14:30)
[2021-07-14] MEDS ORDERED: oxyCODONE HCL 5 MG TABLET PO ONE ×2 (14:30→20:18)
[2021-07-14 15:43] LABS: CALCIUM 8.2 mg/dL (8.5-10.1)
[2021-07-14 15:44] LABS: ALBUMIN 2.8 g/dl (3.4-5.0); BLOOD UREA NITROGEN 67.6 mg/dL (7-18); MAGNESIUM 2.3 mg/dL (1.8-2.4)
[2021-07-14 15:47] LABS: CREATININE 6.3 mg/dL (0.55-1.3)
[2021-07-14 15:49] LABS: BILIRUBIN,TOTAL 0.3 mg/dL (0.2-1); TOT PROT 6.6 g/dl (6.4-8.2)
[2021-07-14] MEDS: INSULIN (LEVEMIR) 100 UNITS/ML UNITS SQ SCH (21:45)
[2021-07-14] MEDS: hydrALAZINE HCL 50 MG TABLET (FP) PO SCH (21:45)
[2021-07-15] MEDS: INSULIN SLIDING SCALE (NOVOLOG) 1 VIAL SQ SCH ×5 (00:53→21:33)
[2021-07-15] MEDS ORDERED: oxyCODONE HCL 5 MG TABLET PO ONE (09:15)
[2021-07-15] MEDS ORDERED: ACETAMINOPHEN 325 MG TABLET (FP) PO ONE (09:15)
[2021-07-15 09:21] LABS: BASO % 1.2 % (0-2.0); EOS % 3.8 % (0-4.5); HEMATOCRIT 31.8 % (32.4-45.2); HEMOGLOBIN 10.3 GM/dL (10.7-15.3); MCH 26.8 pg (25.7-33.7); MCHC 32.2 g/dl (32.0-36.0); MEAN CELL VOLUME 83.2 fl (80-96); MEAN PLT VOLUME 6.8 fl (7.5-11.1); MONO % 7.9 % (3.8-10.2); NEUT % 77.1 % (42.8-82.8); PLATELET COUNT 343 10^3/uL (134-434); RBC 3.83 M/mm3 (3.60-5.2); WHITE BLOOD COUNT 9.4 K/mm3 (4.0-10.0)
[2021-07-15] MEDS: INSULIN (NOVOLOG) ASPART 100 UNITS/ML 10ML VIAL SQ SCH ×3 (09:29→16:44)
[2021-07-15] MEDS: hydrALAZINE HCL 50 MG TABLET (FP) PO SCH ×2 (09:33→21:40)
[2021-07-15] MEDS: NIFEdipine E.R. 90 MG TABLET PO SCH (09:33)
[2021-07-15] MEDS: INSULIN (LEVEMIR) 100 UNITS/ML UNITS SQ SCH ×2 (09:34→21:35)
[2021-07-15 09:55] LABS: ALBUMIN 2.9 g/dl (3.4-5.0); BLOOD UREA NITROGEN 52.9 mg/dL (7-18); CALCIUM 8.3 mg/dL (8.5-10.1); MAGNESIUM 2.2 mg/dL (1.8-2.4)
[2021-07-15 09:58] LABS: CREATININE 5.7 mg/dL (0.55-1.3); PHOSPHOROUS 4.9 mg/dL (2.5-4.9)
[2021-07-15 09:59] LABS: BILIRUBIN,TOTAL 0.4 mg/dL (0.2-1); TOT PROT 6.9 g/dl (6.4-8.2)
[2021-07-15] MEDS ORDERED: SODIUM CHLORIDE 250 ML IV PRN (15:42)
[2021-07-15] MEDS: ACETAMINOPHEN 325 MG TABLET (FP) PO PRN (16:51)
[2021-07-15] MEDS: oxyCODONE HCL 5 MG TABLET PO PRN (16:52)
[2021-07-15 18:06] LABS: HEPATITIS B SURFACE AG MATERN NON-REACTIVE (NONREACTIVE)
[2021-07-16] MEDS: oxyCODONE HCL 5 MG TABLET PO PRN ×3 (02:32→20:31)
[2021-07-16] MEDS: INSULIN SLIDING SCALE (NOVOLOG) 1 VIAL SQ SCH ×4 (06:33→22:00)
[2021-07-16] MEDS: INSULIN (NOVOLOG) ASPART 100 UNITS/ML 10ML VIAL SQ SCH ×3 (06:33→17:37)
[2021-07-16] MEDS: INSULIN (LEVEMIR) 100 UNITS/ML UNITS SQ SCH ×3 (08:44→21:37)
[2021-07-16 09:41] LABS: BASO % 0.8 % (0-2.0); EOS % 6.3 % (0-4.5); HEMATOCRIT 31.5 % (32.4-45.2); HEMOGLOBIN 10.2 GM/dL (10.7-15.3); LYMPH % 15.3 % (8-40); MCHC 32.3 g/dl (32.0-36.0); MEAN CELL VOLUME 83.5 fl (80-96); MEAN PLT VOLUME 6.5 fl (7.5-11.1); MONO % 8.1 % (3.8-10.2); NEUT % 69.5 % (42.8-82.8); PLATELET COUNT 329 10^3/uL (134-434); RBC 3.78 M/mm3 (3.60-5.2); RDW 17.5 % (11.6-15.6)
[2021-07-16] MEDS: hydrALAZINE HCL 50 MG TABLET (FP) PO SCH ×2 (10:00→21:37)
[2021-07-16 10:37] LABS: BLOOD UREA NITROGEN 61.3 mg/dL (7-18); CALCIUM 8.6 mg/dL (8.5-10.1); MAGNESIUM 2.3 mg/dL (1.8-2.4)
[2021-07-16 10:39] LABS: ALBUMIN 3.1 g/dl (3.4-5.0)
[2021-07-16 10:40] LABS: PHOSPHOROUS 5.4 mg/dL (2.5-4.9)
[2021-07-16 10:41] LABS: BILIRUBIN,TOTAL 0.2 mg/dL (0.2-1); TOT PROT 7.4 g/dl (6.4-8.2)
[2021-07-16 10:42] LABS: CREATININE 6.6 mg/dL (0.55-1.3)
[2021-07-16] MEDS ORDERED: INSULIN SLIDING SCALE (NOVOLOG) 1 VIAL SQ ONE (12:15)
[2021-07-16] MEDS: NIFEdipine E.R. 90 MG TABLET PO SCH (12:23)
[2021-07-16] MEDS: LISINOPRIL 5 MG TABLET PO SCH (12:23)
[2021-07-16 14:27] VITALS: BMI 39.4
[2021-07-16] MEDS: ACETAMINOPHEN 325 MG TABLET (FP) PO PRN (20:33)
[2021-07-17] MEDS: INSULIN (NOVOLOG) ASPART 100 UNITS/ML 10ML VIAL SQ SCH ×3 (06:41→17:06)
[2021-07-17] MEDS: INSULIN SLIDING SCALE (NOVOLOG) 1 VIAL SQ SCH ×4 (06:41→21:53)
[2021-07-17 09:14] LABS: BLOOD UREA NITROGEN 50.5 mg/dL (7-18); CALCIUM 8.7 mg/dL (8.5-10.1)
[2021-07-17] MEDS: hydrALAZINE HCL 50 MG TABLET (FP) PO SCH ×2 (09:27→21:52)
[2021-07-17] MEDS: oxyCODONE HCL 5 MG TABLET PO PRN ×2 (09:27→20:54)
[2021-07-17] MEDS: NIFEdipine E.R. 90 MG TABLET PO SCH (09:27)
[2021-07-17] MEDS: INSULIN (LEVEMIR) 100 UNITS/ML UNITS SQ SCH ×2 (09:30→21:54)
[2021-07-17] MEDS: LISINOPRIL 5 MG TABLET PO SCH (09:34)
[2021-07-17] MEDS: ACETAMINOPHEN 325 MG TABLET (FP) PO PRN (20:55)
[2021-07-18] MEDS: INSULIN (NOVOLOG) ASPART 100 UNITS/ML 10ML VIAL SQ SCH ×3 (07:06→16:35)
[2021-07-18] MEDS: INSULIN SLIDING SCALE (NOVOLOG) 1 VIAL SQ SCH ×4 (07:06→23:38)
[2021-07-18] MEDS: INSULIN (LEVEMIR) 100 UNITS/ML UNITS SQ SCH ×2 (09:00→23:40)
[2021-07-18] MEDS: hydrALAZINE HCL 50 MG TABLET (FP) PO SCH ×2 (09:00→23:37)
[2021-07-18] MEDS: NIFEdipine E.R. 90 MG TABLET PO SCH (09:00)
[2021-07-18] MEDS: LISINOPRIL 5 MG TABLET PO SCH (09:03)
[2021-07-18] MEDS: oxyCODONE HCL 5 MG TABLET PO PRN (09:21)
[2021-07-18] MEDS: ACETAMINOPHEN 325 MG TABLET (FP) PO PRN (09:22)
[2021-07-18 09:25] LABS: BASO % 1.9 % (0-2.0); EOS % 5.3 % (0-4.5); HEMOGLOBIN 9.8 GM/dL (10.7-15.3); LYMPH % 17.4 % (8-40); MCH 27.4 pg (25.7-33.7); MCHC 32.8 g/dl (32.0-36.0); MEAN CELL VOLUME 83.6 fl (80-96); MEAN PLT VOLUME 6.6 fl (7.5-11.1); MONO % 9.7 % (3.8-10.2); NEUT % 65.7 % (42.8-82.8); PLATELET COUNT 321 10^3/uL (134-434); RBC 3.59 M/mm3 (3.60-5.2); RDW 17.1 % (11.6-15.6); WHITE BLOOD COUNT 7.8 K/mm3 (4.0-10.0)
[2021-07-18 12:04] LABS: HEMOGLOBIN 9.7 GM/dL (10.7-15.3); MCHC 32.4 g/dl (32.0-36.0); MEAN CELL VOLUME 83.3 fl (80-96); MEAN PLT VOLUME 6.7 fl (7.5-11.1); PLATELET COUNT 291 10^3/uL (134-434); RBC 3.61 M/mm3 (3.60-5.2); RDW 17.1 % (11.6-15.6); WHITE BLOOD COUNT 7.6 K/mm3 (4.0-10.0)
[2021-07-18] MEDS ORDERED: SODIUM CHLORIDE 250 ML IV PRN (13:40)
[2021-07-18] MEDS ORDERED: ALTEPLASE (CATHFLO) 2 MG/2 ML VIAL NR ONE ×2 (14:00)
[2021-07-18 14:05] LABS: CHLORIDE 101 mmol/L (98-107); CREATININE 5.9 mg/dL (0.55-1.3); GLUCOSE,RANDOM 155 mg/dL (74-106); SODIUM 136 mmol/L (136-145)
[2021-07-18 14:06] LABS: ALBUMIN 2.9 g/dl (3.4-5.0); ALK PHOS 250 U/L (45-117); BILIRUBIN,TOTAL 0.3 mg/dL (0.2-1); CALCIUM 8.4 mg/dL (8.5-10.1); CO2 28 mmol/L (21-32); SGOT/AST 63 U/L (15-37); SGPT/ALT 78 U/L (13-61)
[2021-07-18] MEDS ORDERED: oxyCODONE HCL 5 MG TABLET PO ONE (23:49)
[2021-07-19] MEDS: INSULIN (NOVOLOG) ASPART 100 UNITS/ML 10ML VIAL SQ SCH ×3 (06:35→17:52)
[2021-07-19] MEDS: INSULIN SLIDING SCALE (NOVOLOG) 1 VIAL SQ SCH ×3 (06:36→17:53)
[2021-07-19 09:43] LABS: BASO % 1.3 % (0-2.0); EOS % 6.2 % (0-4.5); HEMATOCRIT 29.9 % (32.4-45.2); HEMOGLOBIN 9.7 GM/dL (10.7-15.3); LYMPH % 12.2 % (8-40); MCH 27.1 pg (25.7-33.7); MCHC 32.5 g/dl (32.0-36.0); MEAN CELL VOLUME 83.4 fl (80-96); MEAN PLT VOLUME 6.8 fl (7.5-11.1); MONO % 8.9 % (3.8-10.2); NEUT % 71.4 % (42.8-82.8); PLATELET COUNT 269 10^3/uL (134-434); RBC 3.59 M/mm3 (3.60-5.2); RDW 17.2 % (11.6-15.6); WHITE BLOOD COUNT 7.4 K/mm3 (4.0-10.0)
[2021-07-19 10:21] LABS: ALBUMIN 3.2 g/dl (3.4-5.0); BLOOD UREA NITROGEN 51.4 mg/dL (7-18); CALCIUM 8.6 mg/dL (8.5-10.1); MAGNESIUM 2.4 mg/dL (1.8-2.4)
[2021-07-19 10:24] LABS: PHOSPHOROUS 5.2 mg/dL (2.5-4.9)
[2021-07-19 10:25] LABS: CREATININE 6.3 mg/dL (0.55-1.3)
[2021-07-19 10:26] LABS: BILIRUBIN,TOTAL 0.7 mg/dL (0.2-1); TOT PROT 7.4 g/dl (6.4-8.2)
[2021-07-19] MEDS: hydrALAZINE HCL 50 MG TABLET (FP) PO SCH (10:39)
[2021-07-19] MEDS: NIFEdipine E.R. 90 MG TABLET PO SCH (10:39)
[2021-07-19] MEDS: LISINOPRIL 5 MG TABLET PO SCH ×2 (10:40→11:20)
[2021-07-19] MEDS: INSULIN (LEVEMIR) 100 UNITS/ML UNITS SQ SCH (10:41)
[2021-07-19] MEDS ORDERED: LISINOPRIL 5 MG TABLET PO ONE (11:45)
[2021-07-19] MEDS ORDERED: FENTANYL CITRATE/PF 50 MCG/ML VIAL ONE ×2 (15:36→16:20)
[2021-07-19] MEDS ORDERED: MIDAZOLAM HCL 2 MG/2 ML SINGLE DOSE VIAL ONE ×2 (15:36→16:22)
[2021-07-19] MEDS ORDERED: LIDOCAINE HCL 1%, 10 MG/ML (20ML VIAL) ONE (15:39)
[2021-07-19] MEDS ORDERED: HEPARIN NA (PORCINE) 5,000 UNITS/ML 1ML VIAL ONE (15:57)
[2021-07-19] MEDS ORDERED: PROPOFOL 20 ML ONE (16:21)
[2021-07-19] MEDS ORDERED: ceFAZolin SODIUM 1 GM VIAL IVPB ONE (16:31)
[2021-07-19] MEDS ORDERED: LIDOCAINE HCL 1%, 10 MG/ML (20ML VIAL) INF ONE ×2 (16:32)
[2021-07-19] MEDS ORDERED: ACETAMINOPHEN 325 MG TABLET (FP) PO PRN (17:10)
[2021-07-19] MEDS ORDERED: ACETAMINOPHEN 325 MG TABLET (FP) PO ONE (17:55)
[2021-07-19] MEDS ORDERED: oxyCODONE HCL 5 MG TABLET PO ONE (17:59)
[2021-07-19 18:01] VITALS: BP 145/70; PULSE 92; TEMP 98
[2021-07-19] MEDS ORDERED: INSULIN SLIDING SCALE (NOVOLOG) 1 VIAL SQ SCH (22:00)
[2021-07-19] MEDS ORDERED: hydrALAZINE HCL 50 MG TABLET (FP) PO SCH (22:00)
[2021-07-19] MEDS ORDERED: INSULIN (LEVEMIR) 100 UNITS/ML UNITS SQ SCH (22:00)
[2021-07-20] MEDS ORDERED: INSULIN (NOVOLOG) ASPART 100 UNITS/ML 10ML VIAL SQ SCH (07:00)
[2021-07-20] MEDS ORDERED: LISINOPRIL 5 MG TABLET PO SCH ×2 (10:00)
[2021-07-20] MEDS ORDERED: LISINOPRIL 10 MG TABLET PO SCH (10:00)
[2021-07-20] MEDS ORDERED: NIFEdipine E.R. 90 MG TABLET PO SCH (10:00)
== END 2021-07-19 19:57 | disposition home or self-care (01) | DRG 673 ==
LOC: JER 09:26 → JERBED 13:22 → J5S 14:10
PROVIDERS: ADMIT Internal Medicine; ATTEND Internal Medicine
PROC: 02HV33Z Insertion of Infusion Device into Superior Vena Cava, Percutaneous Approach (ICD-10-PCS; principal; 2021-07-15)
PROC: 0JH63XZ Insertion of Tunneled Vascular Access Device into Chest Subcutaneous Tissue and Fascia, Percutaneous Approach (ICD-10-PCS; 2021-07-15)
PROC: B518ZZA Fluoroscopy of Superior Vena Cava, Guidance (ICD-10-PCS; 2021-07-15)
PROC: 05HM33Z Insertion of Infusion Device into Right Internal Jugular Vein, Percutaneous Approach (ICD-10-PCS; 2021-07-15)
PROC: B543ZZA Ultrasonography of Right Jugular Veins, Guidance (ICD-10-PCS; 2021-07-15)
PROC: 5A1D70Z Performance of Urinary Filtration, Intermittent, Less than 6 Hours Per Day (ICD-10-PCS; 2021-07-18)
PROC: 05HY33Z Insertion of Infusion Device into Upper Vein, Percutaneous Approach (ICD-10-PCS; 2021-07-19)
PROC: 05PYX3Z Removal of Infusion Device from Upper Vein, External Approach (ICD-10-PCS; 2021-07-19)
DX: T82.49XA Other complication of vascular dialysis catheter, initial encounter (principal); N18.6 End stage renal disease; I12.0 Hypertensive chronic kidney disease with stage 5 chronic kidney disease or end stage renal disease; Y83.9 Surgical procedure, unspecified as the cause of abnormal reaction of the patient, or of later complication, without mention of misadventure at the time of the procedure; E11.22 Type 2 diabetes mellitus with diabetic chronic kidney disease; Z99.2 Dependence on renal dialysis; D25.9 Leiomyoma of uterus, unspecified; N83.209 Unspecified ovarian cyst, unspecified side
CPT/HCPCS: 36415; 71045-TC-FY; 76000-TC-FY; 80048; 80053; 82962; 83735; 84100; 85025; 85027; 85610; 86705; 86803; 86850; 86900; 86901; 87340; 87517; 93005; 93010; 94760; 99285-25; C9803-CS; J1644; J2997; U0003; U0005

== ENCOUNTER 2021-09-01 12:51 | Observation (INO) | payer OTHER ==
[2021-09-01] MEDS ORDERED: PROMETHAZINE HCL 25 MG/1 ML VIAL IVPUSH PRN (14:46)
[2021-09-01] MEDS ORDERED: ONDANSETRON 4 MG/2 ML VIAL IVPUSH PRN (14:46)
[2021-09-01] MEDS ORDERED: SODIUM CHLORIDE 1,000 ML IV SCH ×2 (15:00→22:28)
[2021-09-01 16:25] LABS: BASO % 0.9 % (0-2.0); EOS % 4.6 % (0-4.5); HEMATOCRIT 35.7 % (32.4-45.2); HEMOGLOBIN 11.5 GM/dL (10.7-15.3); LYMPH % 16.9 % (8-40); MCH 27.1 pg (25.7-33.7); MCHC 32.1 g/dl (32.0-36.0); MEAN CELL VOLUME 84.2 fl (80-96); MEAN PLT VOLUME 6.3 fl (7.5-11.1); MONO % 8.6 % (3.8-10.2); PLATELET COUNT 393 10^3/uL (134-434); RBC 4.23 M/mm3 (3.60-5.2); RDW 19.1 % (11.6-15.6); WHITE BLOOD COUNT 6.6 K/mm3 (4.0-10.0)
[2021-09-01 16:34] LABS: INR 1.03 (0.83-1.09); PROTHROMBIN TIME (PATIENT) 11.8 SEC (9.7-13.0)
[2021-09-01 16:36] LABS: ACTIVATED PTT 30.9 SECONDS (25.2-36.5)
[2021-09-01 16:48] LABS: ALBUMIN 3.6 g/dl (3.4-5.0); BLOOD UREA NITROGEN 51.1 mg/dL (7-18)
[2021-09-01 16:51] LABS: CREATININE 5.8 mg/dL (0.55-1.3)
[2021-09-01 16:52] LABS: BILIRUBIN,TOTAL 0.3 mg/dL (0.2-1)
[2021-09-01] MEDS ORDERED: LIDOCAINE HCL 1%, 10 MG/ML (20ML VIAL) ONE (20:59)
[2021-09-01] MEDS ORDERED: HEPARIN NA (PORCINE) 5,000 UNITS/ML 1ML VIAL ONE (20:59)
[2021-09-01] MEDS ORDERED: MIDAZOLAM HCL 2 MG/2 ML SINGLE DOSE VIAL ONE (21:08)
[2021-09-01] MEDS ORDERED: ceFAZolin SODIUM 1 GM VIAL IVPB ONE (21:27)
[2021-09-01] MEDS ORDERED: SODIUM CHLORIDE 0.9% P/F 10 ML VIAL IJ ONE (21:28)
[2021-09-01] MEDS ORDERED: ceFAZolin SODIUM 1 GM VIAL ONE (21:28)
[2021-09-01] MEDS ORDERED: hydrALAZINE HCL 20 MG/ML VIAL ONE (21:28)
[2021-09-01] MEDS ORDERED: LIDOCAINE HCL 1%, 10 MG/ML (20ML VIAL) NR ONE ×2 (21:29→21:35)
[2021-09-01] MEDS ORDERED: HEPARIN NA (PORCINE) 5,000 UNITS/ML 1ML VIAL SQ ONE ×2 (21:30→21:36)
[2021-09-01] MEDS ORDERED: HEPARIN NA (PORCINE) 1,000 UNITS/ML 10ML M-D VIAL SQ ONE (21:37)
[2021-09-01] MEDS ORDERED: FENTANYL CITRATE/PF 50 MCG/ML VIAL ONE (22:35)
[2021-09-01 23:34] VITALS: BMI 36.9
[2021-09-01] MEDS ORDERED: ACETAMINOPHEN 1000 MG/100 ML BAG IVPB ONE (23:35)
[2021-09-02] MEDS: INSULIN SLIDING SCALE (NOVOLOG) 1 VIAL SQ SCH ×2 (06:06→12:41)
[2021-09-02] MEDS ORDERED: ACETAMINOPHEN 1000 MG/100 ML BAG IVPB ONE (06:13)
[2021-09-02] MEDS ORDERED: SODIUM CHLORIDE 250 ML IV PRN (08:13)
[2021-09-02] MEDS ORDERED: HEPARIN NA (PORCINE) 5,000 UNITS/ML 1ML VIAL IVPUSH ONE (08:15)
[2021-09-02] MEDS: HEPARIN NA (PORCINE) 5,000 UNITS/ML 1ML VIAL IVPUSH SCH ×3 (09:30→11:25)
[2021-09-02 10:03] LABS: HEMOGLOBIN 10.7 GM/dL (10.7-15.3); MCH 27.7 pg (25.7-33.7); MCHC 32.6 g/dl (32.0-36.0); MEAN PLT VOLUME 6.7 fl (7.5-11.1); PLATELET COUNT 371 10^3/uL (134-434); RBC 3.88 M/mm3 (3.60-5.2); WHITE BLOOD COUNT 7.7 K/mm3 (4.0-10.0)
[2021-09-02 11:00] LABS: CALCIUM 8.7 mg/dL (8.5-10.1); CREATININE 6.3 mg/dL (0.55-1.3)
[2021-09-02 13:47] VITALS: BP 137/67; PULSE 89; TEMP 98.5
[2021-09-05 18:36] LABS: HEPATITIS B SURFACE AG CONFIRM CONFIRMED (NONREACTIVE)
== END 2021-09-02 17:16 | disposition home or self-care (01) ==
LOC: JER 12:51 → JASUSAT 12:51 → JERBED 20:37 → J5S 23:04
PROVIDERS: ADMIT Hospitalist; ATTEND Hospitalist
PROC: 0WHG33Z Insertion of Infusion Device into Peritoneal Cavity, Percutaneous Approach (ICD-10-PCS; 2021-09-01)
PROC: 3E033NZ Introduction of Analgesics, Hypnotics, Sedatives into Peripheral Vein, Percutaneous Approach (ICD-10-PCS; 2021-09-01)
PROC: 3E03329 Introduction of Other Anti-infective into Peripheral Vein, Percutaneous Approach (ICD-10-PCS; 2021-09-01)
PROC: 3E023GC Introduction of Other Therapeutic Substance into Muscle, Percutaneous Approach (ICD-10-PCS; 2021-09-01)
PROC: 3E033GC Introduction of Other Therapeutic Substance into Peripheral Vein, Percutaneous Approach (ICD-10-PCS; 2021-09-01)
PROC: 3E013VG Introduction of Insulin into Subcutaneous Tissue, Percutaneous Approach (ICD-10-PCS; 2021-09-01)
PROC: 3E0337Z Introduction of Electrolytic and Water Balance Substance into Peripheral Vein, Percutaneous Approach (ICD-10-PCS; 2021-09-01)
PROC: 0WPG33Z Removal of Infusion Device from Peritoneal Cavity, Percutaneous Approach (ICD-10-PCS; principal; 2021-09-01 17:30)
DX: T82.898A Other specified complication of vascular prosthetic devices, implants and grafts, initial encounter (principal); E10.22 Type 1 diabetes mellitus with diabetic chronic kidney disease; I12.0 Hypertensive chronic kidney disease with stage 5 chronic kidney disease or end stage renal disease; N18.6 End stage renal disease; E78.00 Pure hypercholesterolemia, unspecified; Z99.2 Dependence on renal dialysis; Z86.16 Personal history of COVID-19; D64.9 Anemia, unspecified; Z90.49 Acquired absence of other specified parts of digestive tract; Z87.891 Personal history of nicotine dependence; Z88.6 Allergy status to analgesic agent; Z89.422 Acquired absence of other left toe(s); Z89.421 Acquired absence of other right toe(s); E66.8 Other obesity; Z68.37 Body mass index [BMI] 37.0-37.9, adult
CPT/HCPCS: 36415; 71045-TC-FY; 76000-TC-FY; 80048; 80053; 82962; 85025; 85027; 85610; 85730; 86803; 86850; 86900; 86901; 87340; 93005; 93010; 94760; 99285-25; C9803-CS; G0378; J1644; U0003; U0005

== ENCOUNTER 2021-09-09 04:19 | Day surgery (SDC) | payer OTHER ==
[2021-09-06 15:08] VITALS: BMI 37.3
[2021-09-09] MEDS ORDERED: PROPOFOL 20 ML ONE ×2 (15:35)
[2021-09-09] MEDS ORDERED: MIDAZOLAM HCL 2 MG/2 ML SINGLE DOSE VIAL ONE ×4 (15:36→16:51)
[2021-09-09] MEDS ORDERED: PAPAVERINE HCL 30 MG/1 ML 10 ML VIAL NR ONE (15:42)
[2021-09-09] MEDS ORDERED: LIDOCAINE HCL 1%, 10 MG/ML (20ML VIAL) ONE (15:42)
[2021-09-09] MEDS ORDERED: HEPARIN NA (PORCINE) 5,000 UNITS/ML 1ML VIAL ONE (15:43)
[2021-09-09] MEDS ORDERED: ONDANSETRON 4 MG/2 ML VIAL ONE (16:16)
[2021-09-09] MEDS ORDERED: ceFAZolin SODIUM 1 GM VIAL ONE (16:16)
[2021-09-09] MEDS ORDERED: ceFAZolin SODIUM 1 GM VIAL IVPB ONE (16:20)
[2021-09-09] MEDS ORDERED: LIDOCAINE HCL 1%, 10 MG/ML (20ML VIAL) NR ONE (16:24)
[2021-09-09] MEDS ORDERED: POVIDONE-IODINE OINTMENT 10% - 28.4 GM TUBE TP ONE (17:20)
[2021-09-09] MEDS ORDERED: ACETAMINOPHEN 325 MG TABLET (FP) PO PRN (17:27)
[2021-09-09] MEDS ORDERED: ONDANSETRON 4 MG/2 ML VIAL IVPUSH PRN (17:38)
[2021-09-09] MEDS ORDERED: oxyCODONE HCL 5 MG TABLET PO PRN ×2 (17:38)
[2021-09-09] MEDS ORDERED: ACETAMINOPHEN 1000 MG/100 ML BAG IVPB PRN (17:40)
[2021-09-09] MEDS ORDERED: SODIUM CHLORIDE 1,000 ML IV SCH (17:45)
[2021-09-09] MEDS ORDERED: ACETAMINOPHEN 325 MG TABLET (FP) ONE (19:36)
[2021-09-09] MEDS ORDERED: oxyCODONE HCL 5 MG TABLET ONE (19:41)
[2021-09-09 20:03] VITALS: BP 114/54; PULSE 88; TEMP 98
== END 2021-09-09 20:05 | disposition home or self-care (01) ==
LOC: JASU-SURG 04:19
PROVIDERS: ATTEND Surgery
PROC: 03160ZD Bypass Left Axillary Artery to Upper Arm Vein, Open Approach (ICD-10-PCS; principal; 2021-09-09 15:30)
DX: E11.22 Type 2 diabetes mellitus with diabetic chronic kidney disease (principal); I12.0 Hypertensive chronic kidney disease with stage 5 chronic kidney disease or end stage renal disease; N18.6 End stage renal disease; Z79.4 Long term (current) use of insulin; E11.40 Type 2 diabetes mellitus with diabetic neuropathy, unspecified; E78.5 Hyperlipidemia, unspecified
CPT/HCPCS: 36415; 82962; 84132; 94760; J1644

== ENCOUNTER 2021-10-13 06:39 | Inpatient (IN) | payer OTHER ==
[2021-10-13 07:14] VITALS: BMI 36.8
[2021-10-13 08:28] LABS: BASO % 1.6 % (0-2.0); HEMATOCRIT 34.8 % (32.4-45.2); HEMOGLOBIN 11.4 GM/dL (10.7-15.3); MCH 28.1 pg (25.7-33.7); MCHC 32.8 g/dl (32.0-36.0); MEAN CELL VOLUME 85.7 fl (80-96); MEAN PLT VOLUME 6.8 fl (7.5-11.1); MONO % 7.3 % (3.8-10.2); NEUT % 69.1 % (42.8-82.8); PLATELET COUNT 291 10^3/uL (134-434); RBC 4.06 M/mm3 (3.60-5.2); RDW 18.2 % (11.6-15.6); WHITE BLOOD COUNT 7.2 K/mm3 (4.0-10.0)
[2021-10-13 08:46] LABS: CHLORIDE 103 mmol/L (98-107); SODIUM 133 mmol/L (136-145)
[2021-10-13 08:48] LABS: INR 1.03 (0.83-1.09); PROTHROMBIN TIME (PATIENT) 11.9 SEC (9.7-13.0)
[2021-10-13 08:50] LABS: ALBUMIN 3.5 g/dl (3.4-5.0); ANION GAP 8 MMOL/L (8-16); BLOOD UREA NITROGEN 53.9 mg/dL (7-18); CALCIUM 8.7 mg/dL (8.5-10.1); CO2 22 mmol/L (21-32); MAGNESIUM 1.9 mg/dL (1.8-2.4)
[2021-10-13 08:50] LABS: ACTIVATED PTT 35.3 SECONDS (25.2-36.5)
[2021-10-13 08:53] LABS: CREATININE 6.2 mg/dL (0.55-1.3); SGOT/AST 33 U/L (15-37); SGPT/ALT 24 U/L (13-61)
[2021-10-13 08:55] LABS: BILIRUBIN,TOTAL 0.4 mg/dL (0.2-1); TOT PROT 7.7 g/dl (6.4-8.2)
[2021-10-13 08:56] LABS: ALK PHOS 162 U/L (45-117); GLUCOSE,RANDOM 403 mg/dL (74-106)
[2021-10-13] MEDS ORDERED: INSULIN REGULAR HUMAN 100 UNITS/ML *VIAL IVPUSH ONE (09:24)
[2021-10-13] MEDS ORDERED: INSULIN REGULAR HUMAN 100 UNITS/ML *VIAL ONE (09:28)
[2021-10-13] MEDS ORDERED: PROMETHAZINE HCL 25 MG/1 ML VIAL IVPUSH PRN (11:54)
[2021-10-13] MEDS ORDERED: ONDANSETRON 4 MG/2 ML VIAL IVPUSH PRN ×2 (11:54→13:48)
[2021-10-13] MEDS ORDERED: HEPARIN NA (PORCINE) 5,000 UNITS/ML 1ML VIAL ONE (11:55)
[2021-10-13] MEDS ORDERED: LIDOCAINE HCL 1%, 10 MG/ML (20ML VIAL) ONE (11:55)
[2021-10-13] MEDS ORDERED: SODIUM CHLORIDE 1,000 ML IV SCH (12:00)
[2021-10-13] MEDS ORDERED: MIDAZOLAM HCL 2 MG/2 ML SINGLE DOSE VIAL ONE (12:01)
[2021-10-13] MEDS ORDERED: PROPOFOL 20 ML ONE (12:01)
[2021-10-13] MEDS ORDERED: ceFAZolin SODIUM 1 GM VIAL IVPB ONE (12:22)
[2021-10-13] MEDS ORDERED: LIDOCAINE HCL/PF 2% SDV 5ML VIAL ONE (12:26)
[2021-10-13] MEDS ORDERED: LIDOCAINE HCL 1%, 10 MG/ML (20ML VIAL) INF ONE (12:31)
[2021-10-13] MEDS ORDERED: HEPARIN NA (PORCINE) 5,000 UNITS/ML 1ML VIAL IVPUSH ONE (12:56)
[2021-10-13] MEDS ORDERED: SODIUM CHLORIDE 250 ML IV PRN (12:56)
[2021-10-13] MEDS ORDERED: HEPARIN NA (PORCINE) 5,000 UNITS/ML 1ML VIAL IVPUSH SCH (13:00)
[2021-10-13] MEDS ORDERED: traMADol HCL 50 MG TABLET PO PRN (13:48)
[2021-10-13] MEDS ORDERED: ACETAMINOPHEN 500 MG TABLET (FP) PO PRN (13:48)
[2021-10-13 16:04] VITALS: TEMP 98.5
[2021-10-13] MEDS ORDERED: INSULIN SLIDING SCALE (NOVOLOG) 1 VIAL SQ SCH ×2 (16:30)
[2021-10-13 17:26] LABS: CALCIUM 8.7 mg/dL (8.5-10.1)
[2021-10-13 17:27] LABS: BLOOD UREA NITROGEN 54.5 mg/dL (7-18)
[2021-10-13 17:30] LABS: CREATININE 6.3 mg/dL (0.55-1.3)
[2021-10-13 19:41] VITALS: BP 142/71; PULSE 83; RESP 20
[2021-10-13] MEDS ORDERED: PATIENT'S OWN MEDICATION (NON-FORMULARY) (Hydralazine Hcl [Hydralazine Hcl] 100 MG Tablet) PO SCH (22:00)
[2021-10-13] MEDS ORDERED: hydrALAZINE HCL 50 MG TABLET (FP) PO SCH (22:00)
[2021-10-14] MEDS ORDERED: PATIENT'S OWN MEDICATION (NON-FORMULARY) (Nifedipine [Nifedipine Er] 90 MG Tablet.Er) PO SCH (10:00)
[2021-10-14] MEDS ORDERED: LISINOPRIL 5 MG TABLET PO SCH ×2 (10:00)
[2021-10-14] MEDS ORDERED: NIFEdipine E.R. 90 MG TABLET PO SCH (10:00)
== END 2021-10-13 20:22 | disposition home or self-care (01) | DRG 698 ==
LOC: JER 06:39 → JERBED 07:27 → J8W 14:26
PROVIDERS: ADMIT Surgery; ATTEND Surgery
PROC: 02H633Z Insertion of Infusion Device into Right Atrium, Percutaneous Approach (ICD-10-PCS; 2021-10-13)
PROC: 5A1D70Z Performance of Urinary Filtration, Intermittent, Less than 6 Hours Per Day (ICD-10-PCS; principal; 2021-10-13 12:31)
DX: T82.41XA Breakdown (mechanical) of vascular dialysis catheter, initial encounter (principal); N18.6 End stage renal disease; I13.2 Hypertensive heart and chronic kidney disease with heart failure and with stage 5 chronic kidney disease, or end stage renal disease; Y83.8 Other surgical procedures as the cause of abnormal reaction of the patient, or of later complication, without mention of misadventure at the time of the procedure; E11.22 Type 2 diabetes mellitus with diabetic chronic kidney disease; I50.9 Heart failure, unspecified; D64.9 Anemia, unspecified; N83.292 Other ovarian cyst, left side; D25.9 Leiomyoma of uterus, unspecified; N83.291 Other ovarian cyst, right side; Z99.2 Dependence on renal dialysis; E11.319 Type 2 diabetes mellitus with unspecified diabetic retinopathy without macular edema; Z89.421 Acquired absence of other right toe(s); Z89.422 Acquired absence of other left toe(s)
CPT/HCPCS: 36415; 71045-TC-FY; 76000-TC-FY; 80048; 80053; 82962; 83735; 84132; 85025; 85610; 85730; 86803; 86850; 86900; 86901; 87340; 93005; 93010; 94760; 99285-25; C9803-CS; J1644; U0003; U0005

== ENCOUNTER 2023-02-16 05:11 | Day surgery (SDC) | payer OTHER ==
[2023-02-15 09:24] VITALS: BMI 32.8
[~2023-02-16 05:11] MED LIST: BUPIVACAINE HCL/PF 0.5% (5MG/ML) 10 ML VIAL IJ ONE; HEPARIN NA (PORCINE) 1,000 UNITS/ML 10ML M-D VIAL SQ ONE
[2023-02-16] MEDS ORDERED: BUPIVACAINE HCL/PF 0.5% (5MG/ML) 10 ML VIAL ONE (07:29)
[2023-02-16] MEDS ORDERED: HEPARIN NA (PORCINE) 5,000 UNITS/ML 1ML VIAL ONE (07:48)
[2023-02-16] MEDS ORDERED: MIDAZOLAM HCL 2 MG/2 ML SINGLE DOSE VIAL ONE (08:18)
[2023-02-16] MEDS ORDERED: ROCURONIUM BROMIDE 50 MG/5 ML SYRINGE ONE (08:47)
[2023-02-16] MEDS ORDERED: ceFAZolin SODIUM 1 GM VIAL IVPB ONE (08:59)
[2023-02-16] MEDS ORDERED: BUPIVACAINE HCL/PF 0.5% (5MG/ML) 10 ML VIAL IJ ONE ×2 (09:16)
[2023-02-16] MEDS ORDERED: SUGAMMADEX SODIUM 200 MG/2 ML VIAL ONE (09:52)
[2023-02-16] MEDS ORDERED: oxyCODONE HCL 5 MG TABLET PO PRN (10:06)
[2023-02-16] MEDS ORDERED: ONDANSETRON 4 MG/2 ML VIAL IVPB PRN (10:06)
[2023-02-16] MEDS ORDERED: ONDANSETRON 4 MG/2 ML VIAL IVPUSH PRN (10:10)
[2023-02-16] MEDS ORDERED: ONDANSETRON 4 MG/2 ML VIAL ONE (10:10)
[2023-02-16] MEDS ORDERED: LACTATED RINGERS SOLUTION 1,000 ML IV SCH (10:15)
[2023-02-16] MEDS ORDERED: ceFAZolin SODIUM 1 GM VIAL ONE (11:34)
[2023-02-16] MEDS ORDERED: cefOXitin SODIUM 2 GM VIAL (RESTRICTED TO ID) IVPB ONE (11:36)
[2023-02-16] MEDS ORDERED: oxyCODONE HCL 5 MG TABLET ONE ×2 (12:12→12:13)
[2023-02-16 12:37] VITALS: PULSE 94; RESP 20; TEMP 97.8
[2023-02-16 13:39] VITALS: BP 127/67
== END 2023-02-16 13:20 | disposition home or self-care (01) ==
LOC: JASU-SURG 05:11
PROVIDERS: ATTEND Surgery
PROC: 0WHG43Z Insertion of Infusion Device into Peritoneal Cavity, Percutaneous Endoscopic Approach (ICD-10-PCS; principal; 2023-02-16 08:30)
DX: I12.0 Hypertensive chronic kidney disease with stage 5 chronic kidney disease or end stage renal disease (principal); N18.6 End stage renal disease
CPT/HCPCS: 82962; 94760; C1750; J1644